=== PATIENT | male | born 1970 | race Caucasian/White ===

== ENCOUNTER 2019-03-08 19:23 | Inpatient (IN) | payer OTHER, MEDICAID, SELFPAY ==
[2019-03-08 19:25] VITALS: BP 172/71; PULSE 124; RESP 28; TEMP 36.4; O2SAT 99
[2019-03-08 19:30] VITALS: BP 172/71; PULSE 124; RESP 28; TEMP 36.4; O2SAT 99
[2019-03-08] MEDS: SODIUM CHLORIDE 0.9% 1,000 ML 1000 ML IV ×2 (19:50→20:58)
--- NOTE | 2019-03-08 19:51 | ED.GENADULT ---
HPI - General Adult General Chief complaint: Diabetic Problem Stated complaint: STATES VOMITING, HIGH BLOOD SUGAR Time Seen by Provider: 03/08/19 19:48 Source: patient Mode of arrival: Wheelchair Limitations: no limitations History of Present Illness HPI narrative: 49-year-old male who arrived by private vehicle for evaluation. Patient states that earlier this week he had generally not felt very well. No specific complaints. He states that yesterday morning he ?got sick ?upon further explanation he stated that he started vomiting and started to feel generally worse than when he had the past couple days. He states that he was taking his blood sugar at home and it was elevated. He was taking his insulin but he states that his blood sugar was not reducing. This was also in the setting of him not eating very much because he was not feeling very well. Over the past day or so he has worsen to the point to where today states that he had generalized pain and needed to come to the emergency department. Patient stated that his primary doctor's located in [place] Related Data Home Medications Medication Instructions Recorded Confirmed insulin aspart U-100 [Novolog See Rx Instructions .ROUTE .COMPLEX 03/09/19 03/09/19 U-100 Insulin aspart] Allergies Allergy/AdvReac Type Severity Reaction Status Date / Time No Known Drug Allergies Allergy Verified 03/08/19 19:49 Review of Systems Constitutional Constitutional: Reports chills, Reports fatigue, Denies fever(s), Reports lethargy, Reports malaise and Reports poor appetite Cardiovascular Cardiovascular: Reports chest pain and Reports dyspnea Respiratory Respiratory: Reports dyspnea Gastrointestinal Gastrointestinal: Reports abdominal pain, Denies change in stool character, Reports nausea and Reports vomiting Genitourinary Genitourinary: Denies dysuria Musculoskeletal Musculoskeletal: Denies myalgias and Denies arthralgias Integumentary/Breasts Skin/Breast: Denies lesions and Denies rash Neurologic Neurologic: Denies behavioral changes and Denies confusion Psychiatric Psychiatric: Denies anxiety, Denies behavioral changes and Denies confusion Endocrine Endocrine: Reports fatigue Hematologic/Lymphatic Hematologic/Lymphatic: Denies easy bleeding and Denies easy bruising Allergic/Immunologic Allergic/Immunologic: Denies urticaria Patient History Medical History Alcoholic cirrhosis of liver (Acute) Hemochromatosis (Acute) IDDM (insulin dependent diabetes mellitus) (Acute) Surgical History (Updated 03/09/19 @ 02:28 by MONSTER Giron) History of appendectomy (Acute) History of cholecystectomy (Acute) Social History household members: children Smoking Status: Current every day smoker Smoking Status: Current every day smoker tobacco type: cigarettes alcohol intake frequency: 0-2 drinks per day Substance Use Type: does not use Exam Initial Vital Signs Initial Vital Signs: Vital Signs Temperature 97.6 F 03/08/19 19:25 Pulse Rate 124 H 03/08/19 19:25 Respiratory Rate 28 H 03/08/19 19:25 Blood Pressure 172/71 H 03/08/19 19:25 Pulse Oximetry 99 03/08/19 19:25 Const General: well developed, well groomed, No in distress, No diaphoretic and ill appearing Orientation: alert, awake and oriented x3 Limitations: mental status not altered HENMT Head: normal to inspection and normocephalic Chest Chest: normal inspection of the chest Resp Effort & Inspection: not labored and tachypneic Auscultation: clear to auscultation bilaterally Cardio Rate: tachycardic Rhythm: regular rhythm Pulses: radial pulses present GI Inspection: non-distended Palpation: soft, No firm and tender (Diffusely tender) Back/Spine/Pelvis Back: No CVA tenderness Skin Lesions: no lesions Rashes: no rashes Neuro General: alert, awake and oriented x3 Cognition: normal cognition Speech: speech normal Sensory Exam: no sensory deficits noted Extrem General: normal to inspection, capillary refill normal and No edema Psych Appearance: grossly normal and well kempt Scores GCS [place] coma scale eye opening: Spontaneous [place] coma scale verbal response: Orientated [place] coma scale motor response: Obey commands [place] coma scale total score: 15 Course Orders Ordered: ED Orders 03/08/19 19:43 Arterial Blood Gas Stat Complete Blood Count AUTO DIFF Stat Comprehensive Metabolic Panel Stat Ethanol (ETOH) Stat Ketones (Beta-Hydroxybutyrate) Stat Lactate (Lactic Acid) Stat Magnesium Stat Phosphorous Stat Procalcitonin Stat Troponin & CK Cardiac Panel Stat 03/08/19 19:49 EKG-12 Lead Stat 03/08/19 19:53 XR chest 1V Stat 03/08/19 20:06 EKG-12 Lead Stat 03/08/19 20:15 Blood Culture Stat 03/08/19 20:30 UA Complete [Urinalysis and Microscopic] Stat Urine Drug Screen, Rapid Stat 03/08/19 21:15 BMP [Basic Metabolic Panel] Stat 03/08/19 21:25 Influenza A & B (PCR) Stat Dextrose (D50w) 25 gm IV PRN PRN PRN Reason: Hypoglycemia Enoxaparin Sodium (Lovenox) 40 mg SUBCUT DAILY MINOO INSULIN DRIP PREMIX (Myxredlin Drip Premix) 100 unit in 100 mls @ 6.5 mls/hr IV TITRATE MINOO; Protocol Last Titration: 03/09/19 00:34 Dose: 9.6 mls/hr Documented by: Admin: 03/08/19 20:46 Dose: 6.5 mls/hr Documented by: JEREMY Dextrose/Sodium Chloride (Dextrose 5%-0.45% Ns) 1,000 mls @ 150 mls/hr IV CONT MINOO Sodium Chloride (Normal Saline 0.45%) 1,000 mls @ 150 mls/hr IV CONT MINOO Last Admin: 03/09/19 00:37 Dose: Not Given Documented by: ALYSSIA Sodium Chloride (Normal Saline 0.9%) 1,000 mls @ 500 mls/hr IV BOLUS ONE Stop: 03/09/19 03:54 Last Admin: 03/09/19 02:00 Dose: 500 mls/hr Documented by: ALYSSIA Metoclopramide HCl (Reglan) 10 mg IV Q6HR PRN PRN Reason: Nausea And Vomiting Naloxone HCl (Narcan) 0.2 mg IV Q2MIN PRN PRN Reason: Opiate Reversal Ondansetron HCl (Zofran) 4 mg IV Q4HR PRN PRN Reason: Nausea And Vomiting Discontinued Medications Albuterol (Ventolin) 5 mg INH NOW ONE Stop: 03/08/19 21:50 Last Admin: 03/08/19 21:55 Dose: 5 mg Documented by: JEREMY Sodium Chloride (Normal Saline 0.9%) 1,000 mls @ 1,000 mls/hr IV BOLUS ONE Stop: 03/08/19 20:48 Last Infusion: 03/08/19 20:57 Dose: 0 mls/hr Documented by: Admin: 03/08/19 19:50 Dose: 1,000 mls/hr Documented by: JOYCELYN Sodium Chloride (Normal Saline 0.9%) 1,000 mls @ 1,000 mls/hr IV BOLUS ONE Stop: 03/08/19 21:51 Last Infusion: 03/08/19 21:30 Dose: 1,000 mls/hr Documented by: Admin: 03/08/19 20:58 Dose: 1,000 mls/hr Documented by: JEREMY Sodium Chloride (Normal Saline 0.9%) 1,000 mls @ 250 mls/hr IV CONT MINOO Last Infusion: 03/09/19 02:00 Dose: 0 mls/hr Documented by: Infusion: 03/09/19 00:38 Dose: 250 mls/hr Documented by: Infusion: 03/09/19 00:15 Dose: 0 mls/hr Documented by: Admin: 03/08/19 23:00 Dose: 250 mls/hr Documented by: VIPUL Insulin Human Regular (Humulin R) 6 unit IV NOW ONE Stop: 03/08/19 20:29 Last Admin: 03/08/19 20:43 Dose: 6 unit Documented by: JEREMY Cosigned by: JOYCELYN Ondansetron HCl (Zofran) 4 mg IV NOW ONE Stop: 03/08/19 19:52 Last Admin: 03/08/19 19:55 Dose: 4 mg Documented by: JOYCELYN Sodium Bicarbonate (Sodium Bicarbonate 8.4% Syringe) 50 meq IV NOW ONE Stop: 03/08/19 22:29 Last Admin: 03/09/19 00:13 Dose: 50 meq Documented by: VIPUL Vital Signs Vital signs: Vital Signs - 8 hr 03/08/19 20:01 03/08/19 21:10 Pulse Rate 124 H 122 H Respiratory Rate 24 28 H Blood Pressure [Left Arm] 151/82 H 139/51 L Pulse Oximetry 100 100 Medical Decision Making Medical Records Medical records reviewed: Yes I reviewed the patient's medical records. Lab Data Lab results reviewed: Yes I reviewed the patient's lab results. Result diagrams: 03/08/19 19:43 03/09/19 00:05 Labs: Lab Results 03/08/19 03/08/19 03/08/19 Range/Units 19:43 19:43 19:43 WBC 25.3 H (4.5-11.0) X10^3/uL RBC 4.80 (4.5-5.9) X10^6/uL Hgb 16.6 (13.5-17.5) g/dL Hct 50.8 (41-53) % MCV 105.8 H (80-100) fL MCH 34.5 H (26-34) PG MCHC 32.7 (30-36) % RDW 14.5 (11.6-14.8) % Plt Count 187 (150-400) X10^3/uL Neut % (Auto) 90.6 H (50-75) % Lymph % (Auto) 3.7 L (25-40) % [place] % (Auto) 5.1 (3-14) % Eos % (Auto) 0.0 L (2-4) % Baso % (Auto) 0.6 (0-2) % Neut # (Auto) 49916 H (1027-0438) /uL Lymph # (Auto) 1000 L (3799-4276) /uL [place] # (Auto) 1300 H (0-900) /uL Eos # (Auto) 0 (0-450) /uL Baso # (Auto) 100 (0-100) /uL ABG pH (7.35-7.45) ABG pCO2 (35-45) mmHg ABG pO2 (80-100) mmHg ABG HCO3 (22-26) mmol/L ABG Total CO2 (21-31) mmol/L ABG O2 Saturation (95-100) % ABG Base Excess (-2-2) mmol/L FiO2 Sodium 134 L (137-145) mmol/L Potassium 6.2 H (3.4-5.1) mmol/L Chloride 93 L (98-107) mmol/L Carbon Dioxide < 5 L* (22-32) mmol/L BUN 32 H (9-20) mg/dL Creatinine 1.70 H (0.66-1.25) mg/dL Estimated GFR 43.2 L (>60) mL/min BUN/Creatinine Ratio 18.8 (6-22) Glucose 692 H* (70-100) mg/dL Hemoglobin A1c (4.0-6.0) % Lactate (0.7-2.1) mmol/L Calcium 10.2 (8.4-10.2) mg/dL Phosphorus 8.6 H (2.5-4.5) mg/dL Magnesium 2.3 (1.6-2.3) mg/dL Total Bilirubin 2.3 H (0.2-1.3) mg/dL AST 41 (17-59) IU/L ALT 39 (<50) IU/L Alkaline Phosphatase 234 H (38-126) U/L Total Creatine Kinase (55-170) U/L CK-MB (CK-2) CK-MB (CK-2) Rel Index Troponin I (0.01-0.034) ng/mL Total Protein 8.2 (6.3-8.2) g/dL Albumin 5.5 H (3.5-5.0) g/dL Globulin 2.7 (1.7-4.1) g/dL Albumin/Globulin Ratio 2.0 (1.0-2.8) Procalcitonin 0.27 (<0.5) ng/mL Urine Color Urine Appearance Urine pH (4.5-8.0) Ur Specific [place] (1.000-1.035) Urine Protein (Negative) Urine Glucose (UA) (Negative) g/dL Urine Ketones (NEGATIVE) Urine Occult Blood (Negative) Urine Nitrate (Negative) Urine Bilirubin (NEGATIVE) Urine Urobilinogen (0.2) E.U./dL Ur Leukocyte Esterase (NEGATIVE) Urine RBC (0-5/HPF) Urine WBC (0-5/HPF) Urine Bacteria (None) Ur Culture Indicated? Micro UA Comment U Morph 300 ng/mL cutoff (Negative) Ur Oxycodone Screen (Negative) Urine Methadone Screen (Negative) Ur Barbiturates Screen (Negative) U Tricyclic Antidepress (Negative) Ur Phencyclidine Scrn (Negative) Ur Amphetamines Screen (Negative) U Methamphetamines Scrn (Negative) Ur MDMA Scrn (Ecstasy) (Negative) U Benzodiazepines Scrn (Negative) Urine Cocaine Screen (Negative) U Marijuana (THC) Screen (Negative) Ethyl Alcohol < 10 ( - 10) mg/dL Ketones 13.26 H (<0.27) mmol/L Influenza A (RT-PCR) (NEGATIVE) Influenza B (RT-PCR) (NEGATIVE) 03/08/19 03/08/19 03/08/19 Range/Units 19:43 19:43 19:43 WBC (4.5-11.0) X10^3/uL RBC (4.5-5.9) X10^6/uL Hgb (13.5-17.5) g/dL Hct (41-53) % MCV (80-100) fL MCH (26-34) PG MCHC (30-36) % RDW (11.6-14.8) % Plt Count (150-400) X10^3/uL Neut % (Auto) (50-75) % Lymph % (Auto) (25-40) % [place] % (Auto) (3-14) % Eos % (Auto) (2-4) % Baso % (Auto) (0-2) % Neut # (Auto) (0017-1236) /uL Lymph # (Auto) (8659-7060) /uL [place] # (Auto) (0-900) /uL Eos # (Auto) (0-450) /uL Baso # (Auto) (0-100) /uL ABG pH (7.35-7.45) ABG pCO2 (35-45) mmHg ABG pO2 (80-100) mmHg ABG HCO3 (22-26) mmol/L ABG Total CO2 (21-31) mmol/L ABG O2 Saturation (95-100) % ABG Base Excess (-2-2) mmol/L FiO2 Sodium (137-145) mmol/L Potassium (3.4-5.1) mmol/L Chloride (98-107) mmol/L Carbon Dioxide (22-32) mmol/L BUN (9-20) mg/dL Creatinine (0.66-1.25) mg/dL Estimated GFR (>60) mL/min BUN/Creatinine Ratio (6-22) Glucose (70-100) mg/dL Hemoglobin A1c (4.0-6.0) % Lactate 5.8 H* (0.7-2.1) mmol/L Calcium (8.4-10.2) mg/dL Phosphorus Cancelled (2.5-4.5) mg/dL Magnesium Cancelled (1.6-2.3) mg/dL Total Bilirubin (0.2-1.3) mg/dL AST (17-59) IU/L ALT (<50) IU/L Alkaline Phosphatase (38-126) U/L Total Creatine Kinase 38 L (55-170) U/L CK-MB (CK-2) TNP CK-MB (CK-2) Rel Index TNP Troponin I < 0.012 (0.01-0.034) ng/mL Total Protein (6.3-8.2) g/dL Albumin (3.5-5.0) g/dL Globulin (1.7-4.1) g/dL Albumin/Globulin Ratio (1.0-2.8) Procalcitonin (<0.5) ng/mL Urine Color Urine Appearance Urine pH (4.5-8.0) Ur Specific [place] (1.000-1.035) Urine Protein (Negative) Urine Glucose (UA) (Negative) g/dL Urine Ketones (NEGATIVE) Urine Occult Blood (Negative) Urine Nitrate (Negative) Urine Bilirubin (NEGATIVE) Urine Urobilinogen (0.2) E.U./dL Ur Leukocyte Esterase (NEGATIVE) Urine RBC (0-5/HPF) Urine WBC (0-5/HPF) Urine Bacteria (None) Ur Culture Indicated? Micro UA Comment U Morph 300 ng/mL cutoff (Negative) Ur Oxycodone Screen (Negative) Urine Methadone Screen (Negative) Ur Barbiturates Screen (Negative) U Tricyclic Antidepress (Negative) Ur Phencyclidine Scrn (Negative) Ur Amphetamines Screen (Negative) U Methamphetamines Scrn (Negative) Ur MDMA Scrn (Ecstasy) (Negative) U Benzodiazepines Scrn (Negative) Urine Cocaine Screen (Negative) U Marijuana (THC) Screen (Negative) Ethyl Alcohol ( - 10) mg/dL Ketones (<0.27) mmol/L Influenza A (RT-PCR) (NEGATIVE) Influenza B (RT-PCR) (NEGATIVE) 03/08/19 03/08/19 03/08/19 Range/Units 19:43 19:43 19:43 WBC (4.5-11.0) X10^3/uL RBC (4.5-5.9) X10^6/uL Hgb (13.5-17.5) g/dL Hct (41-53) % MCV (80-100) fL MCH (26-34) PG MCHC (30-36) % RDW (11.6-14.8) % Plt Count (150-400) X10^3/uL Neut % (Auto) (50-75) % Lymph % (Auto) (25-40) % [place] % (Auto) (3-14) % Eos % (Auto) (2-4) % Baso % (Auto) (0-2) % Neut # (Auto) (9774-7383) /uL Lymph # (Auto) (5058-8345) /uL [place] # (Auto) (0-900) /uL Eos # (Auto) (0-450) /uL Baso # (Auto) (0-100) /uL ABG pH 7.09 L* (7.35-7.45) ABG pCO2 13.7 L* (35-45) mmHg ABG pO2 128 H (80-100) mmHg ABG HCO3 4 L (22-26) mmol/L ABG Total CO2 5 L (21-31) mmol/L ABG O2 Saturation 97 (95-100) % ABG Base Excess -26.0 L (-2-2) mmol/L FiO2 0.21 Sodium (137-145) mmol/L Potassium (3.4-5.1) mmol/L Chloride (98-107) mmol/L Carbon Dioxide (22-32) mmol/L BUN (9-20) mg/dL Creatinine (0.66-1.25) mg/dL Estimated GFR (>60) mL/min BUN/Creatinine Ratio (6-22) Glucose (70-100) mg/dL Hemoglobin A1c 10.4 H (4.0-6.0) % Lactate (0.7-2.1) mmol/L Calcium (8.4-10.2) mg/dL Phosphorus (2.5-4.5) mg/dL Magnesium (1.6-2.3) mg/dL Total Bilirubin (0.2-1.3) mg/dL AST (17-59) IU/L ALT (<50) IU/L Alkaline Phosphatase (38-126) U/L Total Creatine Kinase (55-170) U/L CK-MB (CK-2) CK-MB (CK-2) Rel Index Troponin I (0.01-0.034) ng/mL Total Protein (6.3-8.2) g/dL Albumin (3.5-5.0) g/dL Globulin (1.7-4.1) g/dL Albumin/Globulin Ratio (1.0-2.8) Procalcitonin (<0.5) ng/mL Urine Color Urine Appearance Urine pH (4.5-8.0) Ur Specific [place] (1.000-1.035) Urine Protein (Negative) Urine Glucose (UA) (Negative) g/dL Urine Ketones (NEGATIVE) Urine Occult Blood (Negative) Urine Nitrate (Negative) Urine Bilirubin (NEGATIVE) Urine Urobilinogen (0.2) E.U./dL Ur Leukocyte Esterase (NEGATIVE) Urine RBC (0-5/HPF) Urine WBC (0-5/HPF) Urine Bacteria (None) Ur Culture Indicated? Micro UA Comment U Morph 300 ng/mL cutoff (Negative) Ur Oxycodone Screen (Negative) Urine Methadone Screen (Negative) Ur Barbiturates Screen (Negative) U Tricyclic Antidepress (Negative) Ur Phencyclidine Scrn (Negative) Ur Amphetamines Screen (Negative) U Methamphetamines Scrn (Negative) Ur MDMA Scrn (Ecstasy) (Negative) U Benzodiazepines Scrn (Negative) Urine Cocaine Screen (Negative) U Marijuana (THC) Screen (Negative) Ethyl Alcohol Cancelled ( - 10) mg/dL Ketones (<0.27) mmol/L Influenza A (RT-PCR) (NEGATIVE) Influenza B (RT-PCR) (NEGATIVE) 03/08/19 03/08/19 03/08/19 Range/Units 20:30 20:30 21:15 WBC (4.5-11.0) X10^3/uL RBC (4.5-5.9) X10^6/uL Hgb (13.5-17.5) g/dL Hct (41-53) % MCV (80-100) fL MCH (26-34) PG MCHC (30-36) % RDW (11.6-14.8) % Plt Count (150-400) X10^3/uL Neut % (Auto) (50-75) % Lymph % (Auto) (25-40) % [place] % (Auto) (3-14) % Eos % (Auto) (2-4) % Baso % (Auto) (0-2) % Neut # (Auto) (0893-8421) /uL Lymph # (Auto) (8160-8127) /uL [place] # (Auto) (0-900) /uL Eos # (Auto) (0-450) /uL Baso # (Auto) (0-100) /uL ABG pH (7.35-7.45) ABG pCO2 (35-45) mmHg ABG pO2 (80-100) mmHg ABG HCO3 (22-26) mmol/L ABG Total CO2 (21-31) mmol/L ABG O2 Saturation (95-100) % ABG Base Excess (-2-2) mmol/L FiO2 Sodium 133 L (137-145) mmol/L Potassium 7.3 H* (3.4-5.1) mmol/L Chloride 96 L (98-107) mmol/L Carbon Dioxide < 5 L* (22-32) mmol/L BUN 33 H (9-20) mg/dL Creatinine 1.50 H (0.66-1.25) mg/dL Estimated GFR 49.9 L (>60) mL/min BUN/Creatinine Ratio 22.0 (6-22) Glucose 699 H* (70-100) mg/dL Hemoglobin A1c (4.0-6.0) % Lactate (0.7-2.1) mmol/L Calcium 9.2 (8.4-10.2) mg/dL Phosphorus (2.5-4.5) mg/dL Magnesium (1.6-2.3) mg/dL Total Bilirubin (0.2-1.3) mg/dL AST (17-59) IU/L ALT (<50) IU/L Alkaline Phosphatase (38-126) U/L Total Creatine Kinase (55-170) U/L CK-MB (CK-2) CK-MB (CK-2) Rel Index Troponin I (0.01-0.034) ng/mL Total Protein (6.3-8.2) g/dL Albumin (3.5-5.0) g/dL Globulin (1.7-4.1) g/dL Albumin/Globulin Ratio (1.0-2.8) Procalcitonin (<0.5) ng/mL Urine Color Yellow Urine Appearance Clear Urine pH 5.0 (4.5-8.0) Ur Specific [place] 1.020 (1.000-1.035) Urine Protein Trace H (Negative) Urine Glucose (UA) 3+ H (Negative) g/dL Urine Ketones 2+ H (NEGATIVE) Urine Occult Blood Trace-lysed (Negative) Urine Nitrate Negative (Negative) Urine Bilirubin Negative (NEGATIVE) Urine Urobilinogen 0.2 (0.2) E.U./dL Ur Leukocyte Esterase Negative (NEGATIVE) Urine RBC None seen (0-5/HPF) Urine WBC None seen (0-5/HPF) Urine Bacteria None seen (None) Ur Culture Indicated? Cult not indicated Micro UA Comment Microscopic normal U Morph 300 ng/mL cutoff Negative (Negative) Ur Oxycodone Screen Negative (Negative) Urine Methadone Screen Negative (Negative) Ur Barbiturates Screen Negative (Negative) U Tricyclic Antidepress Negative (Negative) Ur Phencyclidine Scrn Negative (Negative) Ur Amphetamines Screen Negative (Negative) U Methamphetamines Scrn Negative (Negative) Ur MDMA Scrn (Ecstasy) Negative (Negative) U Benzodiazepines Scrn Negative (Negative) Urine Cocaine Screen Negative (Negative) U Marijuana (THC) Screen Negative (Negative) Ethyl Alcohol ( - 10) mg/dL Ketones (<0.27) mmol/L Influenza A (RT-PCR) (NEGATIVE) Influenza B (RT-PCR) (NEGATIVE) 03/08/19 03/08/19 03/08/19 Range/Units 21:15 21:15 21:25 WBC (4.5-11.0) X10^3/uL RBC (4.5-5.9) X10^6/uL Hgb (13.5-17.5) g/dL Hct (41-53) % MCV (80-100) fL MCH (26-34) PG MCHC (30-36) % RDW (11.6-14.8) % Plt Count (150-400) X10^3/uL Neut % (Auto) (50-75) % Lymph % (Auto) (25-40) % [place] % (Auto) (3-14) % Eos % (Auto) (2-4) % Baso % (Auto) (0-2) % Neut # (Auto) (7569-5270) /uL Lymph # (Auto) (8358-3809) /uL [place] # (Auto) (0-900) /uL Eos # (Auto) (0-450) /uL Baso # (Auto) (0-100) /uL ABG pH (7.35-7.45) ABG pCO2 (35-45) mmHg ABG pO2 (80-100) mmHg ABG HCO3 (22-26) mmol/L ABG Total CO2 (21-31) mmol/L ABG O2 Saturation (95-100) % ABG Base Excess (-2-2) mmol/L FiO2 Sodium (137-145) mmol/L Potassium (3.4-5.1) mmol/L Chloride (98-107) mmol/L Carbon Dioxide (22-32) mmol/L BUN (9-20) mg/dL Creatinine (0.66-1.25) mg/dL Estimated GFR (>60) mL/min BUN/Creatinine Ratio (6-22) Glucose (70-100) mg/dL Hemoglobin A1c (4.0-6.0) % Lactate 4.7 H* (0.7-2.1) mmol/L Calcium (8.4-10.2) mg/dL Phosphorus 7.5 H D (2.5-4.5) mg/dL Magnesium 2.2 (1.6-2.3) mg/dL Total Bilirubin (0.2-1.3) mg/dL AST (17-59) IU/L ALT (<50) IU/L Alkaline Phosphatase (38-126) U/L Total Creatine Kinase (55-170) U/L CK-MB (CK-2) CK-MB (CK-2) Rel Index Troponin I (0.01-0.034) ng/mL Total Protein (6.3-8.2) g/dL Albumin (3.5-5.0) g/dL Globulin (1.7-4.1) g/dL Albumin/Globulin Ratio (1.0-2.8) Procalcitonin (<0.5) ng/mL Urine Color Urine Appearance Urine pH (4.5-8.0) Ur Specific [place] (1.000-1.035) Urine Protein (Negative) Urine Glucose (UA) (Negative) g/dL Urine Ketones (NEGATIVE) Urine Occult Blood (Negative) Urine Nitrate (Negative) Urine Bilirubin (NEGATIVE) Urine Urobilinogen (0.2) E.U./dL Ur Leukocyte Esterase (NEGATIVE) Urine RBC (0-5/HPF) Urine WBC (0-5/HPF) Urine Bacteria (None) Ur Culture Indicated? Micro UA Comment U Morph 300 ng/mL cutoff (Negative) Ur Oxycodone Screen (Negative) Urine Methadone Screen (Negative) Ur Barbiturates Screen (Negative) U Tricyclic Antidepress (Negative) Ur Phencyclidine Scrn (Negative) Ur Amphetamines Screen (Negative) U Methamphetamines Scrn (Negative) Ur MDMA Scrn (Ecstasy) (Negative) U Benzodiazepines Scrn (Negative) Urine Cocaine Screen (Negative) U Marijuana (THC) Screen (Negative) Ethyl Alcohol ( - 10) mg/dL Ketones (<0.27) mmol/L Influenza A (RT-PCR) Flu a negative (NEGATIVE) Influenza B (RT-PCR) Flu b negative (NEGATIVE) Point of Care Testing Glucose POC 500 Point of care testing: Point of Care Testing Glucose POC 500 Imaging Data Chest x-ray: Radiologist's impression: [address] [address] XRay Report Signed Patient: Tutu Martin CMR#: [id number] : 1970Acct:[id number] Age/Sex: 49 / MDate of Service: 03/08/19 Loc: ED Accession Number: [id number] Procedure: XR chest 1V Ordering Provider: Philip Jacobs D.O. PROCEDURE: XR CHEST 1V INDICATIONS: SOB TECHNIQUE: One view of the chest was acquired. COMPARISON: None. FINDINGS: Surgical changes and devices: None. Lungs and pleura: Lungs are clear. No pleural effusions or pneumothorax. Mediastinum: Mediastinal contours appear normal. Heart size is normal. Bones and chest wall: No suspicious bony lesions. Overlying soft tissues appear unremarkable. IMPRESSION: No acute cardiopulmonary disease. Dictated by: Steve Mullen M.D. on 03/08/2019 at 20:44 Approved by: Steve Mullen M.D. on 03/08/2019 at 20:44 ECG Data Attestation: I personally reviewed and interpreted this ECG as follows: Prior ECG tracings: not available for review Interpretation: EKG 1. Sinus tachycardia ST elevation in V1 and V2 Peak T-waves Normal axis Ventricular rate [address] depressions or T-wave inversions EKG 2. Sinus tachycardia Ventricular rate 125 ST elevation in V1 V2 Peak T-waves No ST depressions or T-wave inversions EKG 3. Sinus tachycardia Ventricular rate of 120 ST elevations V1 V2 Normal axis Normal QRS Nonspecific ST T wave changes MDM Narrative Medical decision making narrative: Patient is an insulin-dependent diabetic. He states that he has never been in DKA in the past. He arrived ill-appearing. Was tachypneic and tachycardic. Labs consistent with DKA. Patient's initial EKG did have ST elevations in V1 and V2 but no other reciprocal changes. I did discuss the case with Dr. Santiago who is on-call for Cardiology. The EKGs were faxed to him and he evaluated them. Further discussion on the phone he did state that he agree there were ST elevations in V1 and V2 but again there are no other reciprocal changes. We did discuss the patient's clinical presentation to include acidosis and a negative troponin. He stated that given the patient's clinical presentation in this EKG he would recommend treating the patient's DKA and his electrolyte abnormalities and continue to trend the troponins. He stated that despite these elevations he would not take the patient to the pathology laboratory aides teacher given his other medical issues. Patient's initial potassium was slightly elevated. He was given an insulin bolus and then started on an insulin drip. Fluids were administered. Does have a leukocytosis however no specific signs of infection were found on the exam. Repeat BMP shows that the potassium was slightly higher than before despite the insulin. That is when the 3rd EKG was ordered. The peak T-waves were not particularly worse from the 1st to EKG however his potassium was increasing and he did have peaked T-waves on his EKG. Albuterol was administered. Insulin was continued. I did discuss the case with JOHNNY Lackey the [facility] provider who evaluated the patient the emergency department. ABG showed metabolic acidosis with a pH is 7.0. Repeat ABG was ordered when the 2nd BMP return with worsening lecture light issues in this was essentially unchanged from the 1st ABG. This information is passed on to the hospitalist provider. I did discuss the diagnosis with the patient and family at bedside. Will admit for further evaluation and treatment. Critical Care Time Critical Care Time Critical Care Time: Yes Total Critical Care Time: 45 Attestation: The high probability of a clinically significant, sudden or life threatening deterioration of the endocrine, respiratory, cardiovascular system(s) required my full and direct attention, intervention and personal management. The aggregate critical care time was 45 minutes. This time is in addition to time spent performing reported procedures but includes the following: [] Data Review and interpretation [] Patient assessment and monitoring of vital signs [] Documentation [] Medication orders and management Discharge Plan Departure Patient Disposition: Admitted As Inpatient Clinical Impression: DKA (diabetic ketoacidoses), Hyperkalemia Discharge Date/Time: 03/09/19 00:24 Admit Date/Time: 03/08/19 21:25 Admit Provider: Brijesh Lackey
[2019-03-08] MEDS: ONDANSETRON 4 MG/2 ML INJ IV (19:55)
[2019-03-08 19:58] LABS: Add Manual Diff / Slide Review NO; Basophils Absolute Auto 100 /uL (0-100); Basophils Percent Auto 0.6 % (0-2); Eosinophils Absolute Auto 0 /uL (0-450); Hematocrit 50.8 % (41-53); Hemoglobin 16.6 g/dL (13.5-17.5); Lymphocytes Absolute Auto 1000 /uL (1100-4500); Lymphocytes Percent Auto 3.7 % (25-40); Mean Corpuscular HGB Conc 32.7 % (30-36); Mean Corpuscular Hemoglobin 34.5 PG (26-34); Mean Corpuscular Volume 105.8 fL (80-100); Monocytes Absolute Auto 1300 /uL (0-900); Monocytes Percent Auto 5.1 % (3-14); Neutrophils Absolute Auto 22900 /uL (1500-7000); Neutrophils Percent Auto 90.6 % (50-75); Platelet Count 187 X10^3/uL (150-400); Red Cell Distribution Width 14.5 % (11.6-14.8); White Blood Cell Count 25.3 X10^3/uL (4.5-11.0)
[2019-03-08 20:00] LABS: HCO3 ABG 4 mmol/L (22-26); PCO2 ABG 13.7 mmHg (35-45); PO2 ABG 128 mmHg (80-100); pH ABG 7.09 (7.35-7.45)
[2019-03-08 20:01] VITALS: BP 151/82; PULSE 124; RESP 24; O2SAT 100
[2019-03-08 20:01] LABS: Fractionated Inspired Oxygen 0.21; Oxygen Saturation ABG 97 % (95-100)
[2019-03-08 20:04] LABS: Creatine Kinase 38 U/L (55-170); HEMOLYSIS 45 (0-50)
[2019-03-08 20:06] LABS: Lactate (Lactic Acid) 5.8 mmol/L (0.7-2.1)
[2019-03-08 20:10] LABS: Alanine Aminotransferase 39 IU/L (<50); Albumin 5.5 g/dL (3.5-5.0); Alkaline Phosphatase 234 U/L (38-126); Aspartate Aminotransferase 41 IU/L (17-59); BUN Creatinine Ratio 18.8 (6-22); Bilirubin Total 2.3 mg/dL (0.2-1.3); Blood Urea Nitrogen 32 mg/dL (9-20); Calcium 10.2 mg/dL (8.4-10.2); Chloride 93 mmol/L (98-107); Estimated Glomerular Filt Rate 43.2 mL/min (>60); Ethanol (ETOH) < 10 mg/dL; Globulin 2.7 g/dL (1.7-4.1); Magnesium 2.3 mg/dL (1.6-2.3); Phosphorous 8.6 mg/dL (2.5-4.5); Sodium 134 mmol/L (137-145); Total Protein 8.2 g/dL (6.3-8.2)
[2019-03-08 20:11] LABS: Potassium 6.2 mmol/L (3.4-5.1)
[2019-03-08 20:13] LABS: Carbon Dioxide < 5 mmol/L (22-32)
[2019-03-08 20:17] LABS: Troponin I < 0.012 ng/mL (0.01-0.034)
[2019-03-08 20:21] LABS: Procalcitonin 0.27 ng/mL (<0.5)
--- NOTE | 2019-03-08 20:29 | PC.NURSE ---
reports vomiting at his dads house two days ago and not feeling well. has needed to increase his insulin rates in his insulin pump for last two days with little response to glucose. Now states his meter only says High. two lines placed, fluids infusing, denies needs at this time.
[2019-03-08 20:38] LABS: Bacteria Urine None Seen; RBC Urine None Seen (0-5/HPF); WBC Urine None Seen (0-5/HPF)
[2019-03-08 20:38] LABS: Glucose 692 mg/dL (70-100); Ketones (Beta-Hydroxybutyrate) 13.26 mmol/L (<0.27)
[2019-03-08 20:40] LABS: Appearance Urine UA CLEAR; Bilirubin Urine UA NEGATIVE (NEGATIVE); Color Urine UA YELLOW; Glucose Urine UA 3+ g/dL (Negative); Ketones Urine UA 2+ (NEGATIVE); Leukocyte Esterase Urine UA NEGATIVE (NEGATIVE); Nitrite Urine UA NEGATIVE (Negative); Occult Blood Urine UA TRACE-LYSED (Negative); Protein Urine UA TRACE (Negative); Urobilinogen Urine UA 0.2 E.U./dL (0.2)
[2019-03-08 20:43] LABS: Culture Indicated Urine Cult Not Indicated; Urine Comments Microscopic Normal
[2019-03-08] MEDS: INSULIN REGULAR 100 UNIT/ML 3 ML VIAL 6 UNIT IV (20:43)
[2019-03-08 20:44] LABS: Ur Creatinine Normal (Normal); Ur Specific Gravity Normal (Normal); Urine pH Normal (Normal)
[2019-03-08 20:45] LABS: UR Morphine/Opiate cutoff 300 Negative (Negative); Urine Amphetamines Negative (Negative); Urine Barbiturates Negative (Negative); Urine Benzodiazepines Negative (Negative); Urine Cocaine Negative (Negative); Urine MDMA Negative (Negative); Urine Methadone Negative (Negative); Urine Methamphetamines Negative (Negative); Urine Oxycodone Negative (Negative); Urine Phencyclidine Negative (Negative); Urine Tetrahydrocannabinol Negative (Negative); Urine Tricyclic Antidepressant Negative (Negative)
[2019-03-08] MEDS: INSULIN DRIP PREMIX 100 UNIT/100 ML PLAST..BAG 6.5 UNIT IV (20:46)
--- NOTE | 2019-03-08 20:56 | PC.NURSE ---
patient stopped insulin pump and removed from body prior to starting insulin drip.
[2019-03-08 21:10] VITALS: BP 139/51; PULSE 122; RESP 28; O2SAT 100
--- NOTE | 2019-03-08 21:29 | PC.NURSE ---
repeat BNP drawn by lab at 2114
[2019-03-08 21:34] LABS: Blood Urea Nitrogen 33 mg/dL (9-20); Calcium 9.2 mg/dL (8.4-10.2); Chloride 96 mmol/L (98-107); Estimated Glomerular Filt Rate 49.9 mL/min (>60); HEMOLYSIS < 15 (0-50); Sodium 133 mmol/L (137-145)
[2019-03-08 21:40] VITALS: BP 139/101; PULSE 119; RESP 32; O2SAT 100
[2019-03-08 21:48] LABS: Potassium 7.3 mmol/L (3.4-5.1)
[2019-03-08 21:49] LABS: Carbon Dioxide < 5 mmol/L (22-32); Glucose 699 mg/dL (70-100)
[2019-03-08 21:53] LABS: Magnesium 2.2 mg/dL (1.6-2.3); Phosphorous 7.5 mg/dL (2.5-4.5)
[2019-03-08] MEDS: ALBUTEROL 2.5 MG/3 ML NEB (ADULT) 5 MG INH (21:55)
[2019-03-08 22:04] LABS: Influenza A - CEPHEID Flu A NEGATIVE (NEGATIVE); Influenza B - CEPHEID Flu B NEGATIVE (NEGATIVE)
[2019-03-08 22:07] LABS: Reflexed Lactate in 2 Hours Y
[2019-03-08 22:20] LABS: Hemoglobin A1C% w Est Avg Glu 10.4 % (4.0-6.0)
[2019-03-08 22:22] LABS: Fractionated Inspired Oxygen 0.21; HCO3 ABG 4 mmol/L (22-26); Oxygen Saturation ABG 98 % (95-100); PO2 ABG 130 mmHg (80-100); pH ABG 7.08 (7.35-7.45)
[2019-03-08 22:44] VITALS: BP 159/67; PULSE 127; RESP 25; O2SAT 99
[2019-03-08] MEDS: SODIUM CHLORIDE 0.9% 1,000 ML 250 ML IV (23:00)
--- NOTE | 2019-03-08 23:14 | P.HP_ITS ---
History of Present Illness History of Present Illness Date Patient Seen: 03/08/19 Time Patient Seen: 22:33 Chief complaint: STATES VOMITING, HIGH BLOOD SUGAR Narrative: Mr. 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 Patient is a type 1.5 diabetic on insulin pump. The patient is not very forthcoming with medical information stating he feels delirious. He is followed for his diabetes by provider in [place]. The patient states his symptoms and nausea vomiting had become progressive and describes general malaise. Reports no headaches or dizziness and has no nasal congestion or sore throat. He denies shortness of breath or chest pain and has no palpitations. Describes general abdominal pain with aforementioned nausea without vomiting. Patient denies pre-existing gastroparesis or neuropathy. Reports no changes in bowel or bladder habits. Upon arrival the ER the patient is afebrile with temperature 97.6?, he is tachycardic with a heart rate 124, pressure is 172/71, respirations are 28 saturating 99% on room air. A chest x-ray was taken which shows no acute cardiopulmonary pathology. EKG is obtained which shows ST elevation in V1 V2 without ulcers hip recall changes. On laboratory analysis the patient has an elevated white count 25.3, hemoglobin of 16.6 and hematocrit of 50.8 and platelets of 187. On chemistries he has a low sodium at 1:34 a.m. elevated potassium at 6.2, chloride 93 with a CO2 of less than 5, BUN of 32 and cre atinine 1.7. His blood sugar is found to be 6 and 92. ABGs drawn shows pH of 7.09, pCO2 of 13.7, PO2 of 128, bicarb of 4 with a base excess of -26 on room air. He has an elevated lactate at 5.8 with a negative procalcitonin is 0.27. He has a troponin that is negative at less than 0.012 and a negative total CK. He has an elevated bilirubin at 2.3 with an AST of 41, ALT of 39 and alkaline phosphatase of 234. His ketones are measured at 13.26, his phosphorus at 7.5 and magnesium is 2.2. On urinalysis the he has 3+ glucose and is positive for ketones but no indication of infection. Cardiology is consulted related to the ST-elevation in V1 and V2 in the setting of hyperkalemia. The recommendations received to treat the hyperkalemia and DKA and trend the troponin. The patient is given 6 units of insulin IV and started on insulin infusion. He has received 2 L of normal saline in the ER. He is admitted to the ICU on the medicine service for diabetic ketoacidosis. Patient History Medical History (Updated 03/09/19 @ 02:28 by MONSTER Giron) Alcoholic cirrhosis of liver (Acute) Hemochromatosis (Acute) IDDM (insulin dependent diabetes mellitus) (Acute) Surgical History (Updated 03/09/19 @ 02:28 by MONSTER Giron) History of appendectomy (Acute) History of cholecystectomy (Acute) Family & Social History Safety & Behavioral: Feels Safe in Current Yes Environment Been Physically Hurt or No Threatened By a Person Tobacco & Substance use: Smoking Status Current every day smoker alcohol intake frequency 0-2 drinks per day Substance Use Type does not use Comment: The patient is single and lives alone in an apartment. He reports that his father and mother, brother and sister are all healthy with no known significant medical problems. Occupation: [employer] Smoking: Patient is a current smoker approximately 1/2 pack per day for 20 years. Alcohol: Patient denies alcohol consumption. Substance use: Patient denies recreational pharmaceuticals, herbal or cannabis products. Advanced directive: Patient has no formal advanced directive but states his desire to be FULL CODE. He designates his father Adair Martin SrWinnie to be his surrogate decision maker. Meds Home Medications and Allergies Home Medications Medication Instructions Recorded Confirmed Type insulin aspart U-100 [Novolog See Rx Instructions .ROUTE .COMPLEX 03/09/19 03/09/19 History U-100 Insulin aspart] Allergies Allergy/AdvReac Type Severity Reaction Status Date / Time No Known Drug Allergies Allergy Verified 03/08/19 19:49 Review of Systems Review of Systems Narrative: All systems are reviewed and are unremarkable except as noted in HPI. Exam Vital Signs (past 8 hours): - 03/08/19 19:25 03/08/19 19:30 03/08/19 20:01 Temperature 97.6 F 97.6 F Pulse Rate 124 H 124 H 124 H Respiratory Rate 28 H 28 H 24 Blood Pressure 172/71 H Blood Pressure [Left Arm] 172/71 H 151/82 H Pulse Oximetry 99 99 100 03/08/19 21:10 03/08/19 21:40 03/08/19 22:44 Temperature Pulse Rate 122 H 119 H 127 H Respiratory Rate 28 H 32 H 25 H Blood Pressure Blood Pressure [Left Arm] 139/51 L 139/101 H 159/67 H Pulse Oximetry 100 100 99 Oxygen Delivery Method Room Air Narrative Exam Narrative: GENERAL APPEARANCE: well developed, adequately nourished, slender male, moderately ill-appearings. HEENT: Normocephalic, PERRLA, conjunctiva clear, EOMs intact, no sinus tenderness to percussion, no rhinorrhea, mucous membranes and tongue are dry, pink without lesions or exudate. NECK/THYROID: neck supple, no JVD, no thyromegaly, trachea midline. LYMPH NODES: no cervical or supraclavicular lymphadenopathy. SKIN: [place], warm and dry, no visible lesions or rashes. HEART: Tachycardic rate and regular rhythm, S1-S2, no murmur,brisk capillary refill, no edema LUNGS: clear to auscultation bilaterally, no coarseness crackles or wheezing, no cough present CHEST: Symmetrical movement, no accessory muscle use, no pain to AP and lateral compression. ABDOMEN: Soft, scaphoid, generalized abdominal tenderness, palpation producing nausea, no abdominal pain on heel strike, no organomegaly, no flank or suprapubic tenderness, active bowel tones. EXTREMITIES: moves all extremities, strength is 5/5 and symmetrical, no deformities or joint effusions. NEUROLOGIC: AAO x4, no focal neurologic deficits, cranial nerves II-XII grossly intact, sensation intact to light touch, hearing grossly normal to speech. PSYCH: Patient is agitated, marginally cooperative Objective Labs Result Diagrams: 03/08/19 19:43 03/09/19 00:05 Labs: Laboratory Results - last 24 hr 03/08/19 03/08/19 12 19:43 19:43 19:43 WBC 25.3 H RBC 4.80 Hgb 16.6 Hct 50.8 MCV 105.8 H MCH 34.5 H MCHC 32.7 RDW 14.5 Plt Count 187 Neut % (Auto) 90.6 H Lymph % (Auto) 3.7 L Tillman % (Auto) 5.1 Eos % (Auto) 0.0 L Baso % (Auto) 0.6 Neut # (Auto) 20402 H Lymph # (Auto) 1000 L Tillman # (Auto) 1300 H Eos # (Auto) 0 Baso # (Auto) 100 ABG pH ABG pCO2 ABG pO2 ABG HCO3 ABG Total CO2 ABG O2 Saturation ABG Base Excess FiO2 Sodium 134 L Potassium 6.2 H Chloride 93 L Carbon Dioxide < 5 L* BUN 32 H Creatinine 1.70 H Estimated GFR 43.2 L BUN/Creatinine Ratio 18.8 Glucose 692 H* Hemoglobin A1c Lactate Calcium 10.2 Phosphorus 8.6 H Magnesium 2.3 Total Bilirubin 2.3 H AST 41 ALT 39 Alkaline Phosphatase 234 H Total Creatine Kinase CK-MB (CK-2) CK-MB (CK-2) Rel Index Troponin I Total Protein 8.2 Albumin 5.5 H Globulin 2.7 Albumin/Globulin Ratio 2.0 Procalcitonin 0.27 Urine Color Urine Appearance Urine pH Ur Specific [place] Urine Protein Urine Glucose (UA) Urine Ketones Urine Occult Blood Urine Nitrate Urine Bilirubin Urine Urobilinogen Ur Leukocyte Esterase Urine RBC Urine WBC Urine Bacteria Ur Culture Indicated? Micro UA Comment U Morph 300 ng/mL cutoff Ur Oxycodone Screen Urine Methadone Screen Ur Barbiturates Screen U Tricyclic Antidepress Ur Phencyclidine Scrn Ur Amphetamines Screen U Methamphetamines Scrn Ur MDMA Scrn (Ecstasy) U Benzodiazepines Scrn Urine Cocaine Screen U Marijuana (THC) Screen Ethyl Alcohol < 10 Ketones 13.26 H Influenza A (RT-PCR) Influenza B (RT-PCR) 03/08/19 03/08/19 03/08/19 19:43 19:43 19:43 WBC RBC Hgb Hct MCV MCH MCHC RDW Plt Count Neut % (Auto) Lymph % (Auto) [place] % (Auto) Eos % (Auto) Baso % (Auto) Neut # (Auto) Lymph # (Auto) [place] # (Auto) Eos # (Auto) Baso # (Auto) ABG pH ABG pCO2 ABG pO2 ABG HCO3 ABG Total CO2 ABG O2 Saturation ABG Base Excess FiO2 Sodium Potassium Chloride Carbon Dioxide BUN Creatinine Estimated GFR BUN/Creatinine Ratio Glucose Hemoglobin A1c Lactate 5.8 H* Calcium Phosphorus Cancelled Magnesium Cancelled Total Bilirubin AST ALT Alkaline Phosphatase Total Creatine Kinase 38 L CK-MB (CK-2) TNP CK-MB (CK-2) Rel Index TNP Troponin I < 0.012 Total Protein Albumin Globulin Albumin/Globulin Ratio Procalcitonin Urine Color Urine Appearance Urine pH Ur Specific [place] Urine Protein Urine Glucose (UA) Urine Ketones Urine Occult Blood Urine Nitrate Urine Bilirubin Urine Urobilinogen Ur Leukocyte Esterase Urine RBC Urine WBC Urine Bacteria Ur Culture Indicated? Micro UA Comment U Morph 300 ng/mL cutoff Ur Oxycodone Screen Urine Methadone Screen Ur Barbiturates Screen U Tricyclic Antidepress Ur Phencyclidine Scrn Ur Amphetamines Screen U Methamphetamines Scrn Ur MDMA Scrn (Ecstasy) U Benzodiazepines Scrn Urine Cocaine Screen U Marijuana (THC) Screen Ethyl Alcohol Ketones Influenza A (RT-PCR) Influenza B (RT-PCR) 03/08/19 03/08/19 03/08/19 19:43 19:43 19:43 WBC RBC Hgb Hct MCV MCH MCHC RDW Plt Count Neut % (Auto) Lymph % (Auto) [place] % (Auto) Eos % (Auto) Baso % (Auto) Neut # (Auto) Lymph # (Auto) [place] # (Auto) Eos # (Auto) Baso # (Auto) ABG pH 7.09 L* ABG pCO2 13.7 L* ABG pO2 128 H ABG HCO3 4 L ABG Total CO2 5 L ABG O2 Saturation 97 ABG Base Excess -26.0 L FiO2 0.21 Sodium Potassium Chloride Carbon Dioxide BUN Creatinine Estimated GFR BUN/Creatinine Ratio Glucose Hemoglobin A1c 10.4 H Lactate Calcium Phosphorus Magnesium Total Bilirubin AST ALT Alkaline Phosphatase Total Creatine Kinase CK-MB (CK-2) CK-MB (CK-2) Rel Index Troponin I Total Protein Albumin Globulin Albumin/Globulin Ratio Procalcitonin Urine Color Urine Appearance Urine pH Ur Specific [place] Urine Protein Urine Glucose (UA) Urine Ketones Urine Occult Blood Urine Nitrate Urine Bilirubin Urine Urobilinogen Ur Leukocyte Esterase Urine RBC Urine WBC Urine Bacteria Ur Culture Indicated? Micro UA Comment U Morph 300 ng/mL cutoff Ur Oxycodone Screen Urine Methadone Screen Ur Barbiturates Screen U Tricyclic Antidepress Ur Phencyclidine Scrn Ur Amphetamines Screen U Methamphetamines Scrn Ur MDMA Scrn (Ecstasy) U Benzodiazepines Scrn Urine Cocaine Screen U Marijuana (THC) Screen Ethyl Alcohol Cancelled Ketones Influenza A (RT-PCR) Influenza B (RT-PCR) 03/08/19 03/08/19 03/08/19 20:30 20:30 21:15 WBC RBC Hgb Hct MCV MCH MCHC RDW Plt Count Neut % (Auto) Lymph % (Auto) [place] % (Auto) Eos % (Auto) Baso % (Auto) Neut # (Auto) Lymph # (Auto) [place] # (Auto) Eos # (Auto) Baso # (Auto) ABG pH ABG pCO2 ABG pO2 ABG HCO3 ABG Total CO2 ABG O2 Saturation ABG Base Excess FiO2 Sodium 133 L Potassium 7.3 H* Chloride 96 L Carbon Dioxide < 5 L* BUN 33 H Creatinine 1.50 H Estimated GFR 49.9 L BUN/Creatinine Ratio 22.0 Glucose 699 H* Hemoglobin A1c Lactate Calcium 9.2 Phosphorus Magnesium Total Bilirubin AST ALT Alkaline Phosphatase Total Creatine Kinase CK-MB (CK-2) CK-MB (CK-2) Rel Index Troponin I Total Protein Albumin Globulin Albumin/Globulin Ratio Procalcitonin Urine Color Yellow Urine Appearance Clear Urine pH 5.0 Ur Specific [place] 1.020 Urine Protein Trace H Urine Glucose (UA) 3+ H Urine Ketones 2+ H Urine Occult Blood Trace-lysed Urine Nitrate Negative Urine Bilirubin Negative Urine Urobilinogen 0.2 Ur Leukocyte Esterase Negative Urine RBC None seen Urine WBC None seen Urine Bacteria None seen Ur Culture Indicated? Cult not indicated Micro UA Comment Microscopic normal U Morph 300 ng/mL cutoff Negative Ur Oxycodone Screen Negative Urine Methadone Screen Negative Ur Barbiturates Screen Negative U Tricyclic Antidepress Negative Ur Phencyclidine Scrn Negative Ur Amphetamines Screen Negative U Methamphetamines Scrn Negative Ur MDMA Scrn (Ecstasy) Negative U Benzodiazepines Scrn Negative Urine Cocaine Screen Negative U Marijuana (THC) Screen Negative Ethyl Alcohol Ketones Influenza A (RT-PCR) Influenza B (RT-PCR) 03/08/19 03/08/19 03/08/19 21:15 21:15 21:25 WBC RBC Hgb Hct MCV MCH MCHC RDW Plt Count Neut % (Auto) Lymph % (Auto) [place] % (Auto) Eos % (Auto) Baso % (Auto) Neut # (Auto) Lymph # (Auto) [place] # (Auto) Eos # (Auto) Baso # (Auto) ABG pH ABG pCO2 ABG pO2 ABG HCO3 ABG Total CO2 ABG O2 Saturation ABG Base Excess FiO2 Sodium Potassium Chloride Carbon Dioxide BUN Creatinine Estimated GFR BUN/Creatinine Ratio Glucose Hemoglobin A1c Lactate 4.7 H* Calcium Phosphorus 7.5 H D Magnesium 2.2 Total Bilirubin AST ALT Alkaline Phosphatase Total Creatine Kinase CK-MB (CK-2) CK-MB (CK-2) Rel Index Troponin I Total Protein Albumin Globulin Albumin/Globulin Ratio Procalcitonin Urine Color Urine Appearance Urine pH Ur Specific [place] Urine Protein Urine Glucose (UA) Urine Ketones Urine Occult Blood Urine Nitrate Urine Bilirubin Urine Urobilinogen Ur Leukocyte Esterase Urine RBC Urine WBC Urine Bacteria Ur Culture Indicated? Micro UA Comment U Morph 300 ng/mL cutoff Ur Oxycodone Screen Urine Methadone Screen Ur Barbiturates Screen U Tricyclic Antidepress Ur Phencyclidine Scrn Ur Amphetamines Screen U Methamphetamines Scrn Ur MDMA Scrn (Ecstasy) U Benzodiazepines Scrn Urine Cocaine Screen U Marijuana (THC) Screen Ethyl Alcohol Ketones Influenza A (RT-PCR) Flu a negative Influenza B (RT-PCR) Flu b negative 03/08/19 22:10 WBC RBC Hgb Hct MCV MCH MCHC RDW Plt Count Neut % (Auto) Lymph % (Auto) [place] % (Auto) Eos % (Auto) Baso % (Auto) Neut # (Auto) Lymph # (Auto) [place] # (Auto) Eos # (Auto) Baso # (Auto) ABG pH 7.08 L* ABG pCO2 12.0 L* ABG pO2 130 H ABG HCO3 4 L ABG Total CO2 5 L ABG O2 Saturation 98 ABG Base Excess -26.0 L FiO2 0.21 Sodium Potassium Chloride Carbon Dioxide BUN Creatinine Estimated GFR BUN/Creatinine Ratio Glucose Hemoglobin A1c Lactate Calcium Phosphorus Magnesium Total Bilirubin AST ALT Alkaline Phosphatase Total Creatine Kinase CK-MB (CK-2) CK-MB (CK-2) Rel Index Troponin I Total Protein Albumin Globulin Albumin/Globulin Ratio Procalcitonin Urine Color Urine Appearance Urine pH Ur Specific [place] Urine Protein Urine Glucose (UA) Urine Ketones Urine Occult Blood Urine Nitrate Urine Bilirubin Urine Urobilinogen Ur Leukocyte Esterase Urine RBC Urine WBC Urine Bacteria Ur Culture Indicated? Micro UA Comment U Morph 300 ng/mL cutoff Ur Oxycodone Screen Urine Methadone Screen Ur Barbiturates Screen U Tricyclic Antidepress Ur Phencyclidine Scrn Ur Amphetamines Screen U Methamphetamines Scrn Ur MDMA Scrn (Ecstasy) U Benzodiazepines Scrn Urine Cocaine Screen U Marijuana (THC) Screen Ethyl Alcohol Ketones Influenza A (RT-PCR) Influenza B (RT-PCR) Assessment & Plan Assessment & Plan narrative: This is a 49-year-old male who is a type 1.5 diabetic by history on insulin pump who presents to the ER with DKA with onset of symptoms 3 days previous. Patient notes blood sugars greater than 500 for 2 days. Patient states he began feeling ill and yesterday began feeling nauseated with vomiting. 1. Diabetic ketoacidosis, acute, present on admission, active -patient with DKA with onset of symptoms 3 days ago. -patient is on insulin pump but is not forthcoming with any further information and becomes agitated with questioning. -no source of illness identified, patient with elevated white count at 25.3, chest x-ray is negative, procalcitonin is 0.27 and urinalysis negative, will check flu A/B. -patient received 6 units of insulin IV and started on insulin drip in the emergency department. -will continue insulin drip per protocol. -monitor electrolytes every 4 hours including BMP, Mag and phos. -will continue rehydration with 0.45% saline. -will transition to D5/0.45% saline at 150 cc/hour when blood sugars less than 250. -will monitor anion gap and when closed and blood sugars stable and can tolerate p.o. intake will transition to subcu insulin. 2. Hyperkalemia, acute, present on admission, active. -initial lab results demonstrated potassium of 6.2, renal function is impaired with a creatinine of 1.7. -labs recheck to following rehydration showing elevation of potassium to 7.3. -the patient is given albuterol in the emergency department. -ordered 50 mEq sodium bicarb x1 now in the setting acidosis with severe hyperkalemia. -will follow electrolytes every 4 hours and treat as indicated. 3. ST-elevation on 12 lead EKG, acute, present on admission, active. -12 lead EKG demonstrates significant ST elevation in V1 and V2 without reciprocal changes. -patient denies chest pain complains of abdominal pain and has nausea. Troponin is negative at less than 0.012 and total CK is negative. -patient notably has elevated potassium at 6.2 and on recheck is 7.3. -cardiology is consulted prior to admission with recommendation to treat DKA and hyperkalemia and trend troponin. -will obtain troponin in the morning or sooner if the patient develops any chest pain. 4. Acute kidney injury, present on admission, active. -patient is acutely dehydrated secondary to DKA, clinically dry on exam. -patient presents with an elevated creatinine at 1.7 and a BUN of 32, improved to 1.5 while in the ER with hydration. -patient received 2 L of saline in the ER, will continue IV hydration. -will follow chemistries and renal function closely. 5. Liver cirrhosis, chronic, stable -related to hemochromatosis, MELD-Na score is 17, Child Reyes score is 6-class A. -prior remote history intoxication identified within the medical record, patient denies current alcohol intake and toxicology screen is negative. VTE prophylaxis: SCDs and Lovenox Diet: NPO except ice chips. The patient is admitted to the hospital to the severity of his illness and risk for complications and adverse events. The patient is admitted to the ICU as inpatient status. Scores GCS Lacrosse coma scale eye opening: Spontaneous Lacrosse coma scale verbal response: Orientated Lacrosse coma scale motor response: Obey commands Lacrosse coma scale total score: 15
[2019-03-09] VITALS (14 sets, daily range): BP systolic 125–150; BP diastolic 60–86; PULSE 98–122; RESP 16–23; TEMP 37–37.7; O2SAT 93–100; BMI 21.9
[2019-03-09] MEDS: SODIUM BICARB 8.4% SYRINGE 50 MEQ IV (00:13)
[2019-03-09 00:23] LABS: Magnesium 2.4 mg/dL (1.6-2.3); Phosphorous 5.6 mg/dL (2.5-4.5)
[2019-03-09 00:39] LABS: BUN Creatinine Ratio 22.7 (6-22); Blood Urea Nitrogen 34 mg/dL (9-20); Chloride 101 mmol/L (98-107); Estimated Glomerular Filt Rate 49.9 mL/min (>60); HEMOLYSIS 15 (0-50); Potassium 5.3 mmol/L (3.4-5.1); Sodium 136 mmol/L (137-145)
[2019-03-09 00:49] LABS: Glucose 629 mg/dL (70-100)
[2019-03-09 00:50] LABS: Carbon Dioxide 6 mmol/L (22-32)
[2019-03-09] MEDS: SODIUM CHLORIDE 0.9% 1,000 ML 500 ML IV (02:00)
[2019-03-09] MEDS: SODIUM CHLORIDE 0.45% 1,000 ML 150 ML IV (04:13)
[2019-03-09 05:08] LABS: Add Manual Diff / Slide Review NO; Basophils Absolute Auto 100 /uL (0-100); Basophils Percent Auto 0.4 % (0-2); Eosinophils Absolute Auto 0 /uL (0-450); Hematocrit 39.5 % (41-53); Hemoglobin 13.4 g/dL (13.5-17.5); Lymphocytes Absolute Auto 1000 /uL (1100-4500); Lymphocytes Percent Auto 6.8 % (25-40); Mean Corpuscular HGB Conc 34.1 % (30-36); Mean Corpuscular Hemoglobin 34.4 PG (26-34); Mean Corpuscular Volume 101.1 fL (80-100); Monocytes Absolute Auto 1300 /uL (0-900); Monocytes Percent Auto 8.9 % (3-14); Neutrophils Absolute Auto 12100 /uL (1500-7000); Neutrophils Percent Auto 83.9 % (50-75); Platelet Count 91 X10^3/uL (150-400); Red Cell Distribution Width 14.1 % (11.6-14.8); White Blood Cell Count 14.4 X10^3/uL (4.5-11.0)
[2019-03-09 05:12] LABS: Phosphorous 1.4 mg/dL (2.5-4.5)
[2019-03-09 05:13] LABS: BUN Creatinine Ratio 37.8 (6-22); Blood Urea Nitrogen 34 mg/dL (9-20); Calcium 8.5 mg/dL (8.4-10.2); Carbon Dioxide 13 mmol/L (22-32); Chloride 106 mmol/L (98-107); Estimated Glomerular Filt Rate > 60.0 mL/min (>60); Glucose 321 mg/dL (70-100); HEMOLYSIS < 15 (0-50); Potassium 3.8 mmol/L (3.4-5.1); Sodium 135 mmol/L (137-145)
[2019-03-09 05:25] LABS: Troponin I < 0.012 ng/mL (0.01-0.034)
[2019-03-09] MEDS: POTASSIUM CHLORIDE 40 MEQ in SODIUM CHLORIDE 0.9% 500 ML 130 ML IV (05:56)
--- NOTE | 2019-03-09 06:13 | PC.ADMIT ---
[address] Admission Note: The patient,Tutu Martin,49 y/o, was given written information regarding hospital policies, unit procedures and contact persons. Patient's smoking status: Current every day smoker. Vital Signs - 8 hr 03/08/19 22:44 03/09/19 00:11 03/09/19 01:00 Temperature 98.7 F 99.2 F Pulse Rate 127 H 122 H 113 H Respiratory Rate 25 H 22 23 Blood Pressure 150/74 H 135/76 Blood Pressure [Left Arm] 159/67 H Pulse Oximetry 99 98 100 03/09/19 02:00 03/09/19 03:00 03/09/19 04:00 Temperature 98.8 F 98.8 F 99.5 F Pulse Rate 106 H 109 H 107 H Respiratory Rate 20 21 22 Blood Pressure 131/60 125/65 130/64 Blood Pressure [Left Arm] Pulse Oximetry 96 97 93 03/09/19 05:00 03/09/19 06:00 Temperature 99.9 F H Pulse Rate 103 H 104 H Respiratory Rate 18 16 Blood Pressure 130/64 126/66 Blood Pressure [Left Arm] Pulse Oximetry 95 97 Admitted to ICU at midnight, insulin gtt infusing at 9.6units/hr per protocol, 1 amp Bi-carb given by ED RN at bedside. Patient is fatigued but oriented x4, tolerating ice chips without nausea. ST 120 initially but down to 110 within the hour. See assessment notes.
--- NOTE | 2019-03-09 06:17 | PC.NURSE ---
Night Note-Patient says he is feeling better. Insulin gtt 6.4units/hr by am, CBGs decreasing gradually, see flow sheet. Received 1 liter NS bolus over 2 hrs, then 1/2NS @ 150ml/hr. K+ down to 3.8 in am, 40Meq K+ rider started per protocol. Gap 16. VSS.
[2019-03-09] MEDS: INSULIN DRIP PREMIX 100 UNIT/100 ML PLAST..BAG 6.4 UNIT IV (08:15)
[2019-03-09] MEDS: DEXTROSE 5%-0.45% NS 1,000 ML 150 ML IV (08:15)
--- NOTE | 2019-03-09 08:50 | CM.DANOTE ---
DCP: Case received, EMR reviewed met with patient's mother, present in the room, for patient sleeping. Introduced self and role. Was able to obtain some baseline information from patient's mother. DCP assessment completed with information currently available. Patient is a 49 year old male who admitted yesterday evening to the care of the hospitalist team. PCP: Dr. Monzon. Payer: confirmed: [facility]. Patient came to the hospital via family vehicle secondary to nausea and vomiting. Patient is an insulin dependent diabetic, and had increased blood sugars. His current diagnosis is DKA. Patient sleeping at this time, mother present. He resides in a single family home, is single. He has another provider in [place] as well, unclear if this is his employment coordinator. Patient's father, Tutu, also lives in [place]. P: DCP to continue to follow and be available for any resources needed. Harini Us RN/Remote Sensing Research Scientist
[2019-03-09] MEDS: ENOXAPARIN 40 MG/0.4 ML SYRINGE SUBCUT (09:21)
[2019-03-09 09:56] LABS: Lactate (Lactic Acid) 1.1 mmol/L (0.7-2.1)
[2019-03-09 09:57] LABS: Alanine Aminotransferase 27 IU/L (<50); Albumin 3.4 g/dL (3.5-5.0); Albumin Globulin Ratio 1.5 (1.0-2.8); Alkaline Phosphatase 108 U/L (38-126); Aspartate Aminotransferase 29 IU/L (17-59); Bilirubin Total 0.8 mg/dL (0.2-1.3); Bilirubin Unconjugated 0.5 mg/dL (0.0-1.1); Globulin 2.2 g/dL (1.7-4.1); HEMOLYSIS < 15 (0-50); Total Protein 5.6 g/dL (6.3-8.2)
[2019-03-09 09:58] LABS: BUN Creatinine Ratio 48.6 (6-22); Blood Urea Nitrogen 34 mg/dL (9-20); Calcium 8.3 mg/dL (8.4-10.2); Carbon Dioxide 18 mmol/L (22-32); Chloride 112 mmol/L (98-107); Estimated Glomerular Filt Rate > 60.0 mL/min (>60); Glucose 237 mg/dL (70-100); HEMOLYSIS < 15 (0-50); Sodium 138 mmol/L (137-145)
[2019-03-09 10:22] LABS: HCO3 VBG 17 mmol/L (23-28); Oxygen Saturation VBG 91 % (70-75); PCO2 VBG 33.5 mmHg (45-50); PO2 VBG 66 mmHg (35-45); Total CO2 VBG 18 mmol/L (24-29)
[2019-03-09] MEDS: INSULIN NPH 100 UNIT/ML VIAL 14 UNIT SUBCUT (11:23)
--- NOTE | 2019-03-09 12:40 | PC.NURSE ---
Patient alert, oriented, denies pain and nausea. Ate 50% meal without difficulty, insulin infusion stopped per orders.
--- NOTE | 2019-03-09 14:38 | P.PN_ITS ---
Subjective Subjective Date Patient Seen: 03/09/19 Time Patient Seen: 14:41 Interval history: Tutu Martin is a 49-year-old male with type 1.5 diabetes who was admitted with DKA. He is seen for follow-up today. He currently feels well and much improved. He does not have any nausea vomiting, he denies abdominal pain. He has no fevers or chills. He denies chest pain or shortness of breath. He states that he last changed his insulin infusion site and cartri dge about 2 days ago. His anion gap and acidosis did resolve today. He was given NPH to approximate his basal insulin until a new infusion set and cartridge can arrive for the patient. Plan on placing this tonight around 6 or 7:00 p.m. to ensure that it is functioning correctly before discharge. Exam Vital Signs (past 8 hours): - 03/09/19 07:00 03/09/19 08:11 03/09/19 09:04 Temperature 99.8 F H Pulse Rate 102 H 104 H 103 H Respiratory Rate 18 19 19 Blood Pressure 147/86 H 129/61 131/70 Pulse Oximetry 97 93 97 03/09/19 11:37 Temperature 98.6 F Pulse Rate 98 H Respiratory Rate 23 Blood Pressure 136/83 Pulse Oximetry 98 Oxygen Delivery Method Room Air Oxygen Flow Rate 0 Narrative Exam Narrative: GENERAL APPEARANCE: Well developed, well nourished, in no acute distress. SKIN: Inspection of the skin reveals no rashes, ulcerations or petechiae. HEENT: The sclerae were anicteric and conjunctivae were pink and moist. Extraocular movements were intact and pupils were equal, round with normal accommodation. External inspection of the ears and nose showed no scars, lesion s, or masses. Lips, teeth, and gums showed normal mucosa. The oral mucosa, hard and soft palate, tongue and posterior pharynx were unremarkable. NECK: Supple and symmetric. There was no thyroid enlargement, and no tenderness, or masses were felt. CHEST: Normal AP diameter and normal contour without any kyphoscoliosis. LUNGS: Auscultation of the lungs revealed no wheezes, rhonchi, or rales. CARDIOVASCULAR: There was a regular rate and rhythm without any murmurs, gallops, rubs. Peripheral pulses were 2+ and symmetric. ABDOMEN: Soft and nontender with normal bowel sounds. No ascites was noted. MUSCULOSKELETAL: There was no tenderness or effusions noted. Muscle strength and tone were normal. EXTREMITIES: No cyanosis, clubbing or edema. NEUROLOGIC: Alert and oriented x 3. Normal affect. Gait was normal. Strength is +5/5 in the Upper Extremities and Lower Extremities Bilaterally. Sensation to touch was normal. Objective Labs Result Diagrams: 03/09/19 04:45 03/09/19 09:25 Labs: Laboratory Results - last 24 hr 03/08/19 03/08/19 03/08/19 19:43 19:43 19:43 WBC 25.3 H RBC 4.80 Hgb 16.6 Hct 50.8 MCV 105.8 H MCH 34.5 H MCHC 32.7 RDW 14.5 Plt Count 187 Neut % (Auto) 90.6 H Lymph % (Auto) 3.7 L [place] % (Auto) 5.1 Eos % (Auto) 0.0 L Baso % (Auto) 0.6 Neut # (Auto) 62135 H Lymph # (Auto) 1000 L [place] # (Auto) 1300 H Eos # (Auto) 0 Baso # (Auto) 100 ABG pH ABG pCO2 ABG pO2 ABG HCO3 ABG Total CO2 ABG O2 Saturation ABG Base Excess VBG pH VBG pCO2 VBG pO2 VBG HCO3 VBG Total CO2 VBG O2 Saturation VBG Base Excess FiO2 Sodium 134 L Potassium 6.2 H Chloride 93 L Carbon Dioxide < 5 L* BUN 32 H Creatinine 1.70 H Estimated GFR 43.2 L BUN/Creatinine Ratio 18.8 Glucose 692 H* Hemoglobin A1c Lactate Calcium 10.2 Phosphorus 8.6 H Magnesium 2.3 Total Bilirubin 2.3 H Conjugated Bilirubin Unconjugated Bilirubin AST 41 ALT 39 Alkaline Phosphatase 234 H Total Creatine Kinase CK-MB (CK-2) CK-MB (CK-2) Rel Index Troponin I Total Protein 8.2 Albumin 5.5 H Globulin 2.7 Albumin/Globulin Ratio 2.0 Procalcitonin 0.27 Urine Color Urine Appearance Urine pH Ur Specific [place] Urine Protein Urine Glucose (UA) Urine Ketones Urine Occult Blood Urine Nitrate Urine Bilirubin Urine Urobilinogen Ur Leukocyte Esterase Urine RBC Urine WBC Urine Bacteria Ur Culture Indicated? Micro UA Comment Nasal Screen MRSA (PCR) U Morph 300 ng/mL cutoff Ur Oxycodone Screen Urine Methadone Screen Ur Barbiturates Screen U Tricyclic Antidepress Ur Phencyclidine Scrn Ur Amphetamines Screen U Methamphetamines Scrn Ur MDMA Scrn (Ecstasy) U Benzodiazepines Scrn Urine Cocaine Screen U Marijuana (THC) Screen Ethyl Alcohol < 10 Ketones 13.26 H Influenza A (RT-PCR) Influenza B (RT-PCR) 03/08/19 03/08/19 03/08/19 19:43 19:43 19:43 WBC RBC Hgb Hct MCV MCH MCHC RDW Plt Count Neut % (Auto) Lymph % (Auto) [place] % (Auto) Eos % (Auto) Baso % (Auto) Neut # (Auto) Lymph # (Auto) [place] # (Auto) Eos # (Auto) Baso # (Auto) ABG pH ABG pCO2 ABG pO2 ABG HCO3 ABG Total CO2 ABG O2 Saturation ABG Base Excess VBG pH VBG pCO2 VBG pO2 VBG HCO3 VBG Total CO2 VBG O2 Saturation VBG Base Excess FiO2 Sodium Potassium Chloride Carbon Dioxide BUN Creatinine Estimated GFR BUN/Creatinine Ratio Glucose Hemoglobin A1c Lactate 5.8 H* Calcium Phosphorus Cancelled Magnesium Cancelled Total Bilirubin Conjugated Bilirubin Unconjugated Bilirubin AST ALT Alkaline Phosphatase Total Creatine Kinase 38 L CK-MB (CK-2) TNP CK-MB (CK-2) Rel Index TNP Troponin I < 0.012 Total Protein Albumin Globulin Albumin/Globulin Ratio Procalcitonin Urine Color Urine Appearance Urine pH Ur Specific [place] Urine Protein Urine Glucose (UA) Urine Ketones Urine Occult Blood Urine Nitrate Urine Bilirubin Urine Urobilinogen Ur Leukocyte Esterase Urine RBC Urine WBC Urine Bacteria Ur Culture Indicated? Micro UA Comment Nasal Screen MRSA (PCR) U Morph 300 ng/mL cutoff Ur Oxycodone Screen Urine Methadone Screen Ur Barbiturates Screen U Tricyclic Antidepress Ur Phencyclidine Scrn Ur Amphetamines Screen U Methamphetamines Scrn Ur MDMA Scrn (Ecstasy) U Benzodiazepines Scrn Urine Cocaine Screen U Marijuana (THC) Screen Ethyl Alcohol Ketones Influenza A (RT-PCR) Influenza B (RT-PCR) 03/08/19 03/08/19 03/08/19 19:43 19:43 19:43 WBC RBC Hgb Hct MCV MCH MCHC RDW Plt Count Neut % (Auto) Lymph % (Auto) [place] % (Auto) Eos % (Auto) Baso % (Auto) Neut # (Auto) Lymph # (Auto) [place] # (Auto) Eos # (Auto) Baso # (Auto) ABG pH 7.09 L* ABG pCO2 13.7 L* ABG pO2 128 H ABG HCO3 4 L ABG Total CO2 5 L ABG O2 Saturation 97 ABG Base Excess -26.0 L VBG pH VBG pCO2 VBG pO2 VBG HCO3 VBG Total CO2 VBG O2 Saturation VBG Base Excess FiO2 0.21 Sodium Potassium Chloride Carbon Dioxide BUN Creatinine Estimated GFR BUN/Creatinine Ratio Glucose Hemoglobin A1c 10.4 H Lactate Calcium Phosphorus Magnesium Total Bilirubin Conjugated Bilirubin Unconjugated Bilirubin AST ALT Alkaline Phosphatase Total Creatine Kinase CK-MB (CK-2) CK-MB (CK-2) Rel Index Troponin I Total Protein Albumin Globulin Albumin/Globulin Ratio Procalcitonin Urine Color Urine Appearance Urine pH Ur Specific [place] Urine Protein Urine Glucose (UA) Urine Ketones Urine Occult Blood Urine Nitrate Urine Bilirubin Urine Urobilinogen Ur Leukocyte Esterase Urine RBC Urine WBC Urine Bacteria Ur Culture Indicated? Micro UA Comment Nasal Screen MRSA (PCR) U Morph 300 ng/mL cutoff Ur Oxycodone Screen Urine Methadone Screen Ur Barbiturates Screen U Tricyclic Antidepress Ur Phencyclidine Scrn Ur Amphetamines Screen U Methamphetamines Scrn Ur MDMA Scrn (Ecstasy) U Benzodiazepines Scrn Urine Cocaine Screen U Marijuana (THC) Screen Ethyl Alcohol Cancelled Ketones Influenza A (RT-PCR) Influenza B (RT-PCR) 03/08/19 03/08/19 03/08/19 20:30 20:30 21:15 WBC RBC Hgb Hct MCV MCH MCHC RDW Plt Count Neut % (Auto) Lymph % (Auto) [place] % (Auto) Eos % (Auto) Baso % (Auto) Neut # (Auto) Lymph # (Auto) [place] # (Auto) Eos # (Auto) Baso # (Auto) ABG pH ABG pCO2 ABG pO2 ABG HCO3 ABG Total CO2 ABG O2 Saturation ABG Base Excess VBG pH VBG pCO2 VBG pO2 VBG HCO3 VBG Total CO2 VBG O2 Saturation VBG Base Excess FiO2 Sodium 133 L Potassium 7.3 H* Chloride 96 L Carbon Dioxide < 5 L* BUN 33 H Creatinine 1.50 H Estimated GFR 49.9 L BUN/Creatinine Ratio 22.0 Glucose 699 H* Hemoglobin A1c Lactate Calcium 9.2 Phosphorus Magnesium Total Bilirubin Conjugated Bilirubin Unconjugated Bilirubin AST ALT Alkaline Phosphatase Total Creatine Kinase CK-MB (CK-2) CK-MB (CK-2) Rel Index Troponin I Total Protein Albumin Globulin Albumin/Globulin Ratio Procalcitonin Urine Color Yellow Urine Appearance Clear Urine pH 5.0 Ur Specific [place] 1.020 Urine Protein Trace H Urine Glucose (UA) 3+ H Urine Ketones 2+ H Urine Occult Blood Trace-lysed Urine Nitrate Negative Urine Bilirubin Negative Urine Urobilinogen 0.2 Ur Leukocyte Esterase Negative Urine RBC None seen Urine WBC None seen Urine Bacteria None seen Ur Culture Indicated? Cult not indicated Micro UA Comment Microscopic normal Nasal Screen MRSA (PCR) U Morph 300 ng/mL cutoff Negative Ur Oxycodone Screen Negative Urine Methadone Screen Negative Ur Barbiturates Screen Negative U Tricyclic Antidepress Negative Ur Phencyclidine Scrn Negative Ur Amphetamines Screen Negative U Methamphetamines Scrn Negative Ur MDMA Scrn (Ecstasy) Negative U Benzodiazepines Scrn Negative Urine Cocaine Screen Negative U Marijuana (THC) Screen Negative Ethyl Alcohol Ketones Influenza A (RT-PCR) Influenza B (RT-PCR) 03/08/19 03/08/19 03/08/19 21:15 21:15 21:25 WBC RBC Hgb Hct MCV MCH MCHC RDW Plt Count Neut % (Auto) Lymph % (Auto) [place] % (Auto) Eos % (Auto) Baso % (Auto) Neut # (Auto) Lymph # (Auto) [place] # (Auto) Eos # (Auto) Baso # (Auto) ABG pH ABG pCO2 ABG pO2 ABG HCO3 ABG Total CO2 ABG O2 Saturation ABG Base Excess VBG pH VBG pCO2 VBG pO2 VBG HCO3 VBG Total CO2 VBG O2 Saturation VBG Base Excess FiO2 Sodium Potassium Chloride Carbon Dioxide BUN Creatinine Estimated GFR BUN/Creatinine Ratio Glucose Hemoglobin A1c Lactate 4.7 H* Calcium Phosphorus 7.5 H D Magnesium 2.2 Total Bilirubin Conjugated Bilirubin Unconjugated Bilirubin AST ALT Alkaline Phosphatase Total Creatine Kinase CK-MB (CK-2) CK-MB (CK-2) Rel Index Troponin I Total Protein Albumin Globulin Albumin/Globulin Ratio Procalcitonin Urine Color Urine Appearance Urine pH Ur Specific [place] Urine Protein Urine Glucose (UA) Urine Ketones Urine Occult Blood Urine Nitrate Urine Bilirubin Urine Urobilinogen Ur Leukocyte Esterase Urine RBC Urine WBC Urine Bacteria Ur Culture Indicated? Micro UA Comment Nasal Screen MRSA (PCR) U Morph 300 ng/mL cutoff Ur Oxycodone Screen Urine Methadone Screen Ur Barbiturates Screen U Tricyclic Antidepress Ur Phencyclidine Scrn Ur Amphetamines Screen U Methamphetamines Scrn Ur MDMA Scrn (Ecstasy) U Benzodiazepines Scrn Urine Cocaine Screen U Marijuana (THC) Screen Ethyl Alcohol Ketones Influenza A (RT-PCR) Flu a negative Influenza B (RT-PCR) Flu b negative 03/08/19 03/09/19 03/09/19 22:10 00:05 00:05 WBC RBC Hgb Hct MCV MCH MCHC RDW Plt Count Neut % (Auto) Lymph % (Auto) [place] % (Auto) Eos % (Auto) Baso % (Auto) Neut # (Auto) Lymph # (Auto) [place] # (Auto) Eos # (Auto) Baso # (Auto) ABG pH 7.08 L* ABG pCO2 12.0 L* ABG pO2 130 H ABG HCO3 4 L ABG Total CO2 5 L ABG O2 Saturation 98 ABG Base Excess -26.0 L VBG pH VBG pCO2 VBG pO2 VBG HCO3 VBG Total CO2 VBG O2 Saturation VBG Base Excess FiO2 0.21 Sodium 136 L Potassium 5.3 H D Chloride 101 Carbon Dioxide 6 L* BUN 34 H Creatinine 1.50 H Estimated GFR 49.9 L BUN/Creatinine Ratio 22.7 H Glucose 629 H* Hemoglobin A1c Lactate Calcium 9.0 Phosphorus 5.6 H D Magnesium 2.4 H Total Bilirubin Conjugated Bilirubin Unconjugated Bilirubin AST ALT Alkaline Phosphatase Total Creatine Kinase CK-MB (CK-2) CK-MB (CK-2) Rel Index Troponin I Total Protein Albumin Globulin Albumin/Globulin Ratio Procalcitonin Urine Color Urine Appearance Urine pH Ur Specific [place] Urine Protein Urine Glucose (UA) Urine Ketones Urine Occult Blood Urine Nitrate Urine Bilirubin Urine Urobilinogen Ur Leukocyte Esterase Urine RBC Urine WBC Urine Bacteria Ur Culture Indicated? Micro UA Comment Nasal Screen MRSA (PCR) U Morph 300 ng/mL cutoff Ur Oxycodone Screen Urine Methadone Screen Ur Barbiturates Screen U Tricyclic Antidepress Ur Phencyclidine Scrn Ur Amphetamines Screen U Methamphetamines Scrn Ur MDMA Scrn (Ecstasy) U Benzodiazepines Scrn Urine Cocaine Screen U Marijuana (THC) Screen Ethyl Alcohol Ketones Influenza A (RT-PCR) Influenza B (RT-PCR) 03/09/19 03/09/19 03/09/19 00:05 04:45 04:45 WBC 14.4 H RBC 3.90 L Hgb 13.4 L Hct 39.5 L MCV 101.1 H D MCH 34.4 H MCHC 34.1 RDW 14.1 Plt Count 91 L Neut % (Auto) 83.9 H Lymph % (Auto) 6.8 L [place] % (Auto) 8.9 Eos % (Auto) 0.0 L Baso % (Auto) 0.4 Neut # (Auto) 21276 H Lymph # (Auto) 1000 L [place] # (Auto) 1300 H Eos # (Auto) 0 Baso # (Auto) 100 ABG pH ABG pCO2 ABG pO2 ABG HCO3 ABG Total CO2 ABG O2 Saturation ABG Base Excess VBG pH VBG pCO2 VBG pO2 VBG HCO3 VBG Total CO2 VBG O2 Saturation VBG Base Excess FiO2 Sodium 135 L Potassium 3.8 D Chloride 106 Carbon Dioxide 13 L BUN 34 H Creatinine 0.90 Estimated GFR > 60.0 BUN/Creatinine Ratio 37.8 H Glucose 321 H D Hemoglobin A1c Lactate Calcium 8.5 Phosphorus Magnesium Total Bilirubin Conjugated Bilirubin Unconjugated Bilirubin AST ALT Alkaline Phosphatase Total Creatine Kinase CK-MB (CK-2) CK-MB (CK-2) Rel Index Troponin I Total Protein Albumin Globulin Albumin/Globulin Ratio Procalcitonin Urine Color Urine Appearance Urine pH Ur Specific [place] Urine Protein Urine Glucose (UA) Urine Ketones Urine Occult Blood Urine Nitrate Urine Bilirubin Urine Urobilinogen Ur Leukocyte Esterase Urine RBC Urine WBC Urine Bacteria Ur Culture Indicated? Micro UA Comment Nasal Screen MRSA (PCR) Negative for mrsa U Morph 300 ng/mL cutoff Ur Oxycodone Screen Urine Methadone Screen Ur Barbiturates Screen U Tricyclic Antidepress Ur Phencyclidine Scrn Ur Amphetamines Screen U Methamphetamines Scrn Ur MDMA Scrn (Ecstasy) U Benzodiazepines Scrn Urine Cocaine Screen U Marijuana (THC) Screen Ethyl Alcohol Ketones Influenza A (RT-PCR) Influenza B (RT-PCR) 03/09/19 03/09/19 03/09/19 04:45 04:45 09:25 WBC RBC Hgb Hct MCV MCH MCHC RDW Plt Count Neut % (Auto) Lymph % (Auto) [place] % (Auto) Eos % (Auto) Baso % (Auto) Neut # (Auto) Lymph # (Auto) [place] # (Auto) Eos # (Auto) Baso # (Auto) ABG pH ABG pCO2 ABG pO2 ABG HCO3 ABG Total CO2 ABG O2 Saturation ABG Base Excess VBG pH VBG pCO2 VBG pO2 VBG HCO3 VBG Total CO2 VBG O2 Saturation VBG Base Excess FiO2 Sodium 138 Potassium 4.0 Chloride 112 H Carbon Dioxide 18 L BUN 34 H Creatinine 0.70 Estimated GFR > 60.0 BUN/Creatinine Ratio 48.6 H Glucose 237 H Hemoglobin A1c Lactate Calcium 8.3 L Phosphorus 1.4 L D Magnesium 2.0 Total Bilirubin Conjugated Bilirubin Unconjugated Bilirubin AST ALT Alkaline Phosphatase Total Creatine Kinase CK-MB (CK-2) CK-MB (CK-2) Rel Index Troponin I < 0.012 Total Protein Albumin Globulin Albumin/Globulin Ratio Procalcitonin Urine Color Urine Appearance Urine pH Ur Specific [place] Urine Protein Urine Glucose (UA) Urine Ketones Urine Occult Blood Urine Nitrate Urine Bilirubin Urine Urobilinogen Ur Leukocyte Esterase Urine RBC Urine WBC Urine Bacteria Ur Culture Indicated? Micro UA Comment Nasal Screen MRSA (PCR) U Morph 300 ng/mL cutoff Ur Oxycodone Screen Urine Methadone Screen Ur Barbiturates Screen U Tricyclic Antidepress Ur Phencyclidine Scrn Ur Amphetamines Screen U Methamphetamines Scrn Ur MDMA Scrn (Ecstasy) U Benzodiazepines Scrn Urine Cocaine Screen U Marijuana (THC) Screen Ethyl Alcohol Ketones Influenza A (RT-PCR) Influenza B (RT-PCR) 03/09/19 03/09/19 03/09/19 09:25 09:25 09:30 WBC RBC Hgb Hct MCV MCH MCHC RDW Plt Count Neut % (Auto) Lymph % (Auto) [place] % (Auto) Eos % (Auto) Baso % (Auto) Neut # (Auto) Lymph # (Auto) [place] # (Auto) Eos # (Auto) Baso # (Auto) ABG pH ABG pCO2 ABG pO2 ABG HCO3 ABG Total CO2 ABG O2 Saturation ABG Base Excess VBG pH 7.30 L VBG pCO2 33.5 L VBG pO2 66 H VBG HCO3 17 L VBG Total CO2 18 L VBG O2 Saturation 91 H VBG Base Excess -10.0 L FiO2 Sodium Potassium Chloride Carbon Dioxide BUN Creatinine Estimated GFR BUN/Creatinine Ratio Glucose Hemoglobin A1c Lactate 1.1 Calcium Phosphorus Magnesium Total Bilirubin 0.8 Conjugated Bilirubin 0.0 Unconjugated Bilirubin 0.5 AST 29 ALT 27 Alkaline Phosphatase 108 D Total Creatine Kinase CK-MB (CK-2) CK-MB (CK-2) Rel Index Troponin I Total Protein 5.6 L Albumin 3.4 L Globulin 2.2 Albumin/Globulin Ratio 1.5 Procalcitonin Urine Color Urine Appearance Urine pH Ur Specific [place] Urine Protein Urine Glucose (UA) Urine Ketones Urine Occult Blood Urine Nitrate Urine Bilirubin Urine Urobilinogen Ur Leukocyte Esterase Urine RBC Urine WBC Urine Bacteria Ur Culture Indicated? Micro UA Comment Nasal Screen MRSA (PCR) U Morph 300 ng/mL cutoff Ur Oxycodone Screen Urine Methadone Screen Ur Barbiturates Screen U Tricyclic Antidepress Ur Phencyclidine Scrn Ur Amphetamines Screen U Methamphetamines Scrn Ur MDMA Scrn (Ecstasy) U Benzodiazepines Scrn Urine Cocaine Screen U Marijuana (THC) Screen Ethyl Alcohol Ketones Influenza A (RT-PCR) Influenza B (RT-PCR) Assessment & Plan Assessment & Plan narrative: This is a 49-year-old male who is a type 1.5 diabetic by history on insulin pump who presents to the ER with DKA with onset of symptoms 3 days previous. Patient notes blood sugars greater than 500 for 2 days. He is admitted for DKA. His gap is closed and he is started on subcutaneous insulin this afternoon. Will have him change his insulin pump cartridge and infusion set, and ensure that his glucose is controlled on his insulin pump overnight before discharge likely tomorrow. 1. Diabetic ketoacidosis, acute, present on admission, active -patient with DKA with onset of symptoms 3 days ago. -patient is on insulin pump. Uses 42 units of basal insulin, and average total bolus amount of 26 units in the last 14 days per his insulin pump. Until then NPH 14 units q8 hr and 8 units of lispro with meals as well as sliding scale. -no source of illness identified, patient with elevated white count at 25.3, chest x-ray is negative, procalcitonin is 0.27 and urinalysis negative, flu is negative. -patient received 6 units of insulin IV and started on insulin drip in the emergency department -he was continued on insulin drip protocol until his anion gap improved, his bicarb improved, and gas normalized. He was given 14 units of NPH to approximate his average basal use. He will place his insulin pump on tonight, and we will monitor him overnight and plan for discharge tomorrow. -will repeat labs in the morning 2. Hyperkalemia, acute, present on admission, resolved. -initial lab results demonstrated potassium of 6.2, renal function is impaired with a creatinine of 1.7. -labs recheck to following rehydration showing elevation of potassium to 7.3. -the patient is given albuterol in the emergency department. -ordered 50 mEq sodium bicarb x1 now in the setting acidosis with severe hyperkalemia. -now improved with management of DKA as noted above. 3. ST-elevation on 12 lead EKG, acute, present on admission, active. -12 lead EKG demonstrates significant ST elevation in V1 and V2 without reciprocal changes. -patient denies chest pain complains of abdominal pain and has nausea. Troponin is negative at less than 0.012 and total CK is negative. -patient notably has elevated potassium at 6.2 and on recheck is 7.3. -cardiology is consulted prior to admission with recommendation to treat DKA and hyperkalemia and trend troponin. -will repeat EKG today now that potassium has improved and DKA has resolved. 4. Acute kidney injury, present on admission, resolved. -patient is acutely dehydrated secondary to DKA, clinically dry on exam. -patient presents with an elevated creatinine at 1.7 and a BUN of 32, improved to 1.5 while in the ER with hydration and now resolved at 0.7. -patient received 2 L of saline in the ER, and was continued on IV fluids which are now stopped As patient is able to tolerate p.o. intake. -will follow chemistries and renal function closely. 5. Liver cirrhosis, chronic, stable -related to hemochromatosis, MELD-Na score is 17, Child Reyes score is 6-class A. -prior remote history intoxication identified within the medical record, patient denies current alcohol intake and toxicology screen is negative. VTE prophylaxis: SCDs and Lovenox Diet: Carb consistent I spent 30 minutes providing critical care management this patient. His DKA has now resolved and he can be listed for the regular floor. This excludes time spent in performing separately billed procedures. The patient is admitted to the hospital to the severity of his illness and risk for complications and adverse events.
[2019-03-09] MEDS: INSULIN ASPART 100 UNIT/ML INSULN PEN 8 UNIT SUBCUT (17:20)
[2019-03-09] MEDS: INSULIN ASPART 100 UNIT/ML INSULN PEN SUBCUT (17:20)
--- NOTE | 2019-03-09 18:30 | PC.NURSE ---
Patient resting in bed most of the shift. Up to the bathroom independently. Insulin gtt stopped at 1230. Patient was able to get a refill for his own insulin pump and dosed himself 7.5units at 1815. Per to recheck blood sugar at 2030. Patient alert and oriented.
[2019-03-09 21:26] LABS: Lactate 2HR (Lactic Acid Rflx) 4.7 mmol/L (0.7-2.1)
[2019-03-10] MEDS: ACETAMINOPHEN 325 MG TABLET 650 MG PO (01:24)
--- NOTE | 2019-03-10 01:49 | PC.NURSE ---
Addendum entered by Sandy Reilly R.N. 03/10/19 01:52: 0124 Patient up to bathroom with assist and reports he was able to have BM although is constipated. Medicated now with Tylenol after pharmacy verification. Original Note: 0010 Patient is alert and oriented. Breath sounds diminished at bases but CTA with RA sat of 95%. HRR but tachy at 101; telemetry reading was ST. Complained of heartburn which was relieved with drinking milk. BT present and abdomen is soft. Denies dysuria, frequency or urgency. Is able to turn self. Reports he feels weak and unsteady when up so instructed to call for assistance when needing to get out of bed. CBG was 239 and patient administered 2 units insulin via insulin pump. Complains of 4/10 headache; Ziyad HOOK, informed and order received for Tylenol and awaiting verification by night pharmacy. Fall risk score is moderate but patient verbalizes agreement to call for assistance and is aware bed alarm will be activated if found to not comply.
[2019-03-10 05:18] VITALS: BP 130/80; PULSE 88; RESP 18; TEMP 37; O2SAT 98
[2019-03-10 05:50] LABS: Add Manual Diff / Slide Review NO; Basophils Absolute Auto 0 /uL (0-100); Basophils Percent Auto 0.4 % (0-2); Eosinophils Absolute Auto 0 /uL (0-450); Eosinophils Percent Auto 0.5 % (2-4); Hematocrit 36.7 % (41-53); Lymphocytes Absolute Auto 1000 /uL (1100-4500); Lymphocytes Percent Auto 14.1 % (25-40); Mean Corpuscular HGB Conc 35.5 % (30-36); Mean Corpuscular Hemoglobin 34.9 PG (26-34); Mean Corpuscular Volume 98.3 fL (80-100); Monocytes Absolute Auto 400 /uL (0-900); Monocytes Percent Auto 6.1 % (3-14); Neutrophils Absolute Auto 5600 /uL (1500-7000); Neutrophils Percent Auto 78.9 % (50-75); Platelet Count 61 X10^3/uL (150-400); Red Blood Cell Count 3.73 X10^6/uL (4.5-5.9); Red Cell Distribution Width 14.4 % (11.6-14.8); White Blood Cell Count 7.1 X10^3/uL (4.5-11.0)
[2019-03-10 06:04] LABS: BUN Creatinine Ratio 43.3 (6-22); Blood Urea Nitrogen 26 mg/dL (9-20); Calcium 8.8 mg/dL (8.4-10.2); Carbon Dioxide 23 mmol/L (22-32); Chloride 105 mmol/L (98-107); Estimated Glomerular Filt Rate > 60.0 mL/min (>60); Glucose 146 mg/dL (70-100); HEMOLYSIS < 15 (0-50); Magnesium 2.2 mg/dL (1.6-2.3); Phosphorous 1.5 mg/dL (2.5-4.5); Potassium 3.4 mmol/L (3.4-5.1); Sodium 134 mmol/L (137-145)
[2019-03-10 08:00] VITALS: BP 140/82; PULSE 92; RESP 16; TEMP 36.6; O2SAT 96
[2019-03-10] MEDS: ENOXAPARIN 40 MG/0.4 ML SYRINGE SUBCUT (09:01)
--- NOTE | 2019-03-10 09:04 | P.DS_ITS ---
History of Present Illness History of Present Illness Date Patient Seen: 03/10/19 Time Patient Seen: 09:04 Chief complaint: STATES VOMITING, HIGH BLOOD SUGAR Narrative: As per MONSTER Giron: Mr. 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 Patient is a type 1.5 diabetic on insulin pump. The patient is not very forthcoming with medical information stating he feels delirious. He is followed for his diabetes by provider in [place]. The patient states his symptoms and nausea vomiting had become progressive and describes general malaise. Reports no headaches or dizziness and has no nasal congestion or sore throat. He denies shortness of breath or chest pain and has no palpitations. Describes general abdominal pain with aforementioned nausea without vomiting. Patient denies pre-existing gastroparesis or neuropathy. Reports no changes in bowel or bladder habits. Upon arrival the ER the patient is afebrile with temperature 97.6?, he is tachycardic with a heart rate 124, pressure is 172/71, respirations are 28 saturating 99% on room air. A chest x-ray was taken which shows no acute cardiopulmonary pathology. EKG is obtained which shows ST elevation in V1 V2 without ulcers hip recall changes. On laboratory analysis the patient has an elevated white count 25.3, hemoglobin of 16.6 and hematocrit of 50.8 and platelets of 187. On chemistries he has a low sodium at 1:34 a.m. elevated potassium at 6.2, chloride 93 with a CO2 of less than 5, BUN of 32 and creatinine 1.7. His blood sugar is found to be 6 and 92. ABGs drawn shows pH of 7.09, pCO2 of 13.7, PO2 of 128, bicarb of 4 with a base excess of -26 on room air. He has an elevated lactate at 5.8 with a negative procalcitonin is 0.27. He has a troponin that is negative at less than 0.012 and a negative total CK. He has an elevated bilirubin at 2.3 with an AST of 41, ALT of 39 and alkaline phosphatase of 234. His ketones are measured at 13.26, his phosphorus at 7.5 and magnesium is 2.2. On urinalysis the he has 3+ glucose and is positive for ketones but no indication of infection. Cardiology is consulted related to the ST-elevation in V1 and V2 in the setting of hyperkalemia. The recommendations received to treat the hyperkalemia and DKA and trend the troponin. The patient is given 6 units of insulin IV and started on insulin infusion. He has received 2 L of normal saline in the ER. He is admitted to the ICU on the medicine service for diabetic ketoacidosis. Discharge Providers Provider Date of admission: 03/08/19 21:25 Discharge Date: 03/10/19 Primary care physician: Philip Monzon MD Consults: 03/08/19 21:57 Consult to Dietitian, Adult Routine Comment: Reason For Exam: DKA, IDDM type 1.5 Consult to Discharge Planning Routine Comment: Discharge provider: Brijesh Liang DO Summary Hospital Course Discharge Diagnosis: 1. Diabetic ketoacidosis, acute, present on admission, resolved 2. Hyperkalemia and hyperphophatemia, acute, present on admission, resolved. 3. ST-elevation on 12 lead EKG, acute, present on admission, active. 4. Acute kidney injury, present on admission, resolved. 5. Liver cirrhosis, chronic, stable Hospital Course: Tutu Martin is a 49-year-old male who is a type 1.5 diabetic by history on insulin pump who presented to the ER with DKA with onset of symptoms 3 days prior to admission. Patient noted blood sugars greater than 500 for 2 days. He was admitted for DKA. His gap closed on an insulin infusion, the patient was titrated off of the insulin drip and he replaced his home insulin pump. His insulin pump appear to be working with good control of his sugars. He was discharged home once his pump appear to be in working order. 1. Diabetic ketoacidosis, acute, present on admission, active -patient with DKA with onset of symptoms 3 days ago. -patient is on insulin pump. Uses 42 units of basal insulin, and average total bolus amount of 26 units in the last 14 days per his insulin pump. Patient was given 14 units of NPH as a bridge until his pump supplies could be brought in. He resumed his insulin pump and his sugars remain controlled. Once this was confirmed he was discharged home. -no source of illness identified, patient with elevated white count at 25.3, chest x-ray is negative, procalcitonin is 0.27 and urinalysis negative, flu is negative. His leukocytosis resolved prior to discharge. -patient received 6 units of insulin IV and started on insulin drip in the emergency department -he was continued on insulin drip protocol until his anion gap improved, his bicarb improved, and gas normalized. He was given 14 units of NPH to approximate his average basal use as noted above. -patient should follow-up with his primary care provider and quarantine officer as previously scheduled. -was given 50 mEq sodium bicarb x1 for severe metabolic acidosis with low bicarb. He improved with treatment of DKA. 2. Hyperkalemia and hyperphophatemia, acute, present on admission, resolved. -initial lab results demonstrated potassium of 6.2, very high phosphourous. Renal function was impaired on admission with a creatinine of 1.7. -the patient was given albuterol in the emergency department. -electrolytes improved with treatment of DKA as noted above. 3. ST-elevation on 12 lead EKG, acute, present on admission, active. -12 lead EKG demonstrates significant ST elevation in V1 and V2 without reciprocal changes. -patient denies chest pain complains of abdominal pain and has nausea. Troponin is negative at less than 0.012 and total CK is negative. -patient notably has elevated potassium at 6.2 and on recheck is 7.3. -cardiology is consulted prior to admission with recommendation to treat DKA and hyperkalemia and trend troponin. Improved with Treatment of DKA. 4. Acute kidney injury, present on admission, resolved. -patient was acutely dehydrated secondary to DKA, clinically dry on exam. -patient presented with an elevated creatinine at 1.7 and a BUN of 32, improved to 1.5 while in the ER with hydration and then resolved quickly with treatment of DKA. 5. Liver cirrhosis, chronic, stable -related to hemochromatosis, MELD-Na score is 17, Child Reyes score is 6-class A. -prior remote history intoxication identified within the medical record, patient denies current alcohol intake and toxicology screen is negative. -patient will follow up with primary care provider as previously scheduled. Time Spent with Patient Time spent: Greater than 30 minutes Exam Vital Signs (past 8 hours): - 03/10/19 05:18 03/10/19 08:00 Temperature 98.6 F 97.9 F Pulse Rate 88 92 H Respiratory Rate 18 16 Blood Pressure 130/80 140/82 Pulse Oximetry 98 96 Oxygen Delivery Method Room Air Oxygen Flow Rate 0 Narrative Exam Narrative: GENERAL APPEARANCE: Well developed, well nourished, in no acute distress. SKIN: Inspection of the skin reveals no rashes, ulcerations or petechiae. HEENT: The sclerae were anicteric and conjunctivae were pink and moist. Extraocular movements were intact and pupils were equal, round with normal accommodation. External inspection of the ears and nose showed no scars, lesions, or masses. Lips, teeth, and gums showed normal mucosa. The oral mucosa, hard and soft palate, tongue and posterior pharynx were unremarkable. NECK: Supple and symmetric. There was no thyroid enlargement, and no tenderness, or masses were felt. CHEST: Normal AP diameter and normal contour without any kyphoscoliosis. LUNGS: Auscultation of the lungs revealed no wheezes, rhonchi, or rales. CARDIOVASCULAR: There was a regular rate and rhythm without any murmurs, gallops, rubs. Peripheral pulses were 2+ and symmetric. ABDOMEN: Soft and nontender with normal bowel sounds. No ascites was noted. Insulin pump in place, no surrounding erythema or induration. MUSCULOSKELETAL: There was no tenderness or effusions noted. Muscle strength and tone were normal. EXTREMITIES: No cyanosis, clubbing or edema. NEUROLOGIC: Alert and oriented x 3. Normal affect. Gait was normal. Strength is +5/5 in the Upper Extremities and Lower Extremities Bilaterally. Sensation to touch was normal. Objective Labs Result Diagrams: 03/10/19 05:10 03/10/19 05:10 Labs: Laboratory Results - last 24 hr 03/08/19 03/09/19 03/09/19 21:15 09:25 09:25 WBC RBC Hgb Hct MCV MCH MCHC RDW Plt Count Neut % (Auto) Lymph % (Auto) [place] % (Auto) Eos % (Auto) Baso % (Auto) Neut # (Auto) Lymph # (Auto) [place] # (Auto) Eos # (Auto) Baso # (Auto) VBG pH VBG pCO2 VBG pO2 VBG HCO3 VBG Total CO2 VBG O2 Saturation VBG Base Excess Sodium 138 Potassium 4.0 Chloride 112 H Carbon Dioxide 18 L BUN 34 H Creatinine 0.70 Estimated GFR > 60.0 BUN/Creatinine Ratio 48.6 H Glucose 237 H Lactate 4.7 H* 1.1 Calcium 8.3 L Phosphorus Magnesium Total Bilirubin Conjugated Bilirubin Unconjugated Bilirubin AST ALT Alkaline Phosphatase Total Protein Albumin Globulin Albumin/Globulin Ratio 03/09/19 03/09/19 03/10/19 09:25 09:30 05:10 WBC 7.1 D RBC 3.73 L Hgb 13.0 L Hct 36.7 L MCV 98.3 MCH 34.9 H MCHC 35.5 RDW 14.4 Plt Count 61 L Neut % (Auto) 78.9 H Lymph % (Auto) 14.1 L [place] % (Auto) 6.1 Eos % (Auto) 0.5 L Baso % (Auto) 0.4 Neut # (Auto) 5600 Lymph # (Auto) 1000 L [place] # (Auto) 400 Eos # (Auto) 0 Baso # (Auto) 0 VBG pH 7.30 L VBG pCO2 33.5 L VBG pO2 66 H VBG HCO3 17 L VBG Total CO2 18 L VBG O2 Saturation 91 H VBG Base Excess -10.0 L Sodium Potassium Chloride Carbon Dioxide BUN Creatinine Estimated GFR BUN/Creatinine Ratio Glucose Lactate Calcium Phosphorus Magnesium Total Bilirubin 0.8 Conjugated Bilirubin 0.0 Unconjugated Bilirubin 0.5 AST 29 ALT 27 Alkaline Phosphatase 108 D Total Protein 5.6 L Albumin 3.4 L Globulin 2.2 Albumin/Globulin Ratio 1.5 03/10/19 05:10 WBC RBC Hgb Hct MCV MCH MCHC RDW Plt Count Neut % (Auto) Lymph % (Auto) [place] % (Auto) Eos % (Auto) Baso % (Auto) Neut # (Auto) Lymph # (Auto) [place] # (Auto) Eos # (Auto) Baso # (Auto) VBG pH VBG pCO2 VBG pO2 VBG HCO3 VBG Total CO2 VBG O2 Saturation VBG Base Excess Sodium 134 L Potassium 3.4 Chloride 105 Carbon Dioxide 23 BUN 26 H Creatinine 0.60 L Estimated GFR > 60.0 BUN/Creatinine Ratio 43.3 H Glucose 146 H Lactate Calcium 8.8 Phosphorus 1.5 L Magnesium 2.2 Total Bilirubin Conjugated Bilirubin Unconjugated Bilirubin AST ALT Alkaline Phosphatase Total Protein Albumin Globulin Albumin/Globulin Ratio Discharge Plan Discharge Plan Patient Disposition: Home Discharge comment: You were admitted to the hospital with DKA. no infectious causes were found, and most likely there was an issue with your insulin or the infusion device. You improved with an insulin drip, and you replaced your infusion set and your pump was working properly. You were discharged home, no medication changes are necessary at this time. Discharge orders & Medications Prescriptions: Continued Novolog U-100 Insulin aspart 100 unit/mL solution See Rx Instructions .ROUTE .COMPLEX RF: 0 Follow up/Referrals: Philip Monzon MD [Primary Care Provider] - Discharge Health Status Health Concerns: DKA Diet/Activity/Treatments Diet: Diet as Tolerated Activity: As tolerated Visit Report/Discharge Packet Instructions: DI for Diabetic Ketoacidosis Discharge Data Primary Care Provider: Philip Monzon Discharges patient from system. Discharge Date/Time: 03/10/19 11:00
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
[2019-03-12 11:06] LABS: TCO2 ABG < 5 mmol/L (21-31)
[2019-03-12 11:07] LABS: TCO2 ABG < 5 mmol/L (21-31)
== END 2019-03-10 11:00 | disposition home or self-care (01) | DRG 420 ==
LOC: ED 20:32 → AC 21:26 → ICU 22:37 → AC 03-09 19:00
PROVIDERS: Internal Medicine; Admitting Provider Nurse Practitioner Adult Health; Emergency Provider Emergency Medicine; Family Provider Family Medicine; PCP Family Medicine; Visit Provider Nurse Practitioner Adult Health
DX: E13.10 Other specified diabetes mellitus with ketoacidosis without coma (principal); N17.9 Acute kidney failure, unspecified; E87.5 Hyperkalemia; K74.69 Other cirrhosis of liver; E83.119 Hemochromatosis, unspecified; F17.210 Nicotine dependence, cigarettes, uncomplicated; Z96.41 Presence of insulin pump (external) (internal)
CPT/HCPCS: 36415; 36600; 71045; 80048; 80053; 80076; 80305; 80320; 81001; 82009; 82550; 82805; 82962; 83036; 83605; 83735; 84100; 84145; 84484; 85025; 87040; 87502; 87797; 93005; 93010; 94640; 96361; 96365; 96366; 96375; 99283; 99291; J1650; J2405; J3480; J7050; J7613

== ENCOUNTER 2020-11-17 19:42 | Emergency (ER) | payer OTHER, MEDICAID, SELFPAY ==
[2019-03-09 00:15] VITALS: BMI 21.9
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
[2020-11-17 19:59] VITALS: BP 145/84; PULSE 96; RESP 19; TEMP 37.1; O2SAT 98; BMI 26.6
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
[2020-11-17] MEDS: MORPHINE 4 MG/ML INJ IM (20:15)
[2020-11-17] MEDS: TET,DIPH,PERTUSS(ACELL),VAC/PF 0.5 ML SYRINGE IM (20:15)
[2020-11-17 20:46] VITALS: BP 135/75; PULSE 88; RESP 20; O2SAT 97
== END 2020-11-17 20:48 | disposition home or self-care (01) ==
PROVIDERS: Emergency Provider Emergency Medicine
DX: S71.132A Puncture wound without foreign body, left thigh, initial encounter (principal); W26.8XXA Contact with other sharp object(s), not elsewhere classified, initial encounter; Z23 Encounter for immunization
CPT/HCPCS: 73552; 90471; 96372; 99283; 99284; 90715; J2270

== ENCOUNTER → 2022-07-04 15:01 | Outpatient (CLI) | payer OTHER, MEDICAID, SELFPAY ==
[2019-03-09 00:15] VITALS: BMI 21.9
[2022-07-04 15:31] LABS: Add Manual Diff / Slide Review NO; Basophils Absolute Auto 0 /uL (0-100); Eosinophils Absolute Auto 100 /uL (0-450); Eosinophils Percent Auto 1.4 % (2-4); Hematocrit 39.8 % (41-53); Hemoglobin 13.8 g/dL (13.5-17.5); Lymphocytes Absolute Auto 800 /uL (1100-4500); Lymphocytes Percent Auto 18.3 % (25-40); Mean Corpuscular HGB Conc 34.6 % (30-36); Mean Corpuscular Hemoglobin 33.6 PG (26-34); Mean Corpuscular Volume 97.2 fL (80-100); Monocytes Absolute Auto 300 /uL (0-900); Monocytes Percent Auto 7.2 % (3-14); Neutrophils Absolute Auto 3300 /uL (1500-7000); Neutrophils Percent Auto 72.1 % (50-75); Platelet Count 86 X10^3/uL (150-400); Red Cell Distribution Width 14.6 % (11.6-14.8); White Blood Cell Count 4.6 X10^3/uL (4.5-11.0)
[2022-07-04 16:07] LABS: Erythrocyte Sedimentation Rate 17 MM/HR (0-15)
[2022-07-04 16:08] LABS: Iron 169 ug/dL (49-181)
[2022-07-04 16:10] LABS: Alanine Aminotransferase 71 IU/L (<50); Albumin 3.7 g/dL (3.5-5.0); Albumin Globulin Ratio 1.2 (1.0-2.8); Alkaline Phosphatase 240 U/L (38-126); Aspartate Aminotransferase 66 IU/L (17-59); BUN Creatinine Ratio 51.2 (6-22); Bilirubin Total 0.6 mg/dL (0.2-1.3); Blood Urea Nitrogen 22 mg/dL (9-20); C-Reactive Protein Quant 0.6 mg/dL (<1.0); Calcium 8.8 mg/dL (8.4-10.2); Carbon Dioxide 28 mmol/L (22-32); Chloride 101 mmol/L (98-107); Cholesterol 192 mg/dL (140-199); Estimated Glomerular Filt Rate > 60 mL/min (>60); Globulin 3.2 g/dL (1.7-4.1); Glucose 204 mg/dL (70-100); HEMOLYSIS < 15 (0-50); Potassium 4.2 mmol/L (3.4-5.1); Sodium 133 mmol/L (137-145); Total Protein 6.9 g/dL (6.3-8.2); Triglycerides 91 mg/dL (35-150)
[2022-07-04 16:24] LABS: HDL Cholesterol 116 mg/dL (40-60); LDL Cholesterol Calculated 58 mg/dL (<100)
[2022-07-04 18:55] LABS: Microalbumi Creatinin Ratio Ur 6.9 ug/mg CR (<30); Microalbumin Urine Random 1.7 mg/dL (0-1.6)
[2022-07-06 07:47] LABS: Labcorp Hemoglobin (Hb) A1c 10.8 % (4.8-5.6)
== END ==
PROVIDERS: PCP Family Medicine; Referring Provider Family Medicine; Visit Provider Family Medicine
DX: M06.9 Rheumatoid arthritis, unspecified (principal); E13.9 Other specified diabetes mellitus without complications; E83.110 Hereditary hemochromatosis
CPT/HCPCS: 36415; 80053; 80061; 82043; 82570; 83036; 83540; 85025; 85651; 86140

== ENCOUNTER 2022-11-06 16:01 | Inpatient (IN) | payer OTHER, MEDICAID, SELFPAY ==
[2019-03-09 00:15] VITALS: BMI 21.9
[2022-11-06] VITALS (32 sets, daily range): BP systolic 106–156; BP diastolic 57–98; PULSE 96–114; RESP 12–20; TEMP 36.6–37.1; O2SAT 92–100; BMI 20.5; BMI 20.4
--- NOTE | 2022-11-06 16:39 | DI.RAD.S_ITS ---
PROCEDURE: XR CHEST 1V INDICATIONS: Flu like symptoms TECHNIQUE: One view of the chest was acquired. COMPARISON: [facility], CR, XR CHEST 1V, 03/08/2019, 19:59. FINDINGS: Surgical changes and devices: None. Lungs and pleura: Lungs are clear. No pleural effusions or pneumothorax. Mediastinum: Mediastinal contours appear normal. Heart size is normal. Bones and chest wall: No suspicious bony lesions. Overlying soft tissues appear unremarkable. IMPRESSION: No acute cardiopulmonary abnormality. Dictated by: Ion Garcia M.D. on 11/06/2022 at 17:12 Approved by: Ion Garcia M.D. on 11/06/2022 at 17:13
[2022-11-06] MEDS: SODIUM CHLORIDE 0.9% 1,000 ML 1000 ML IV (17:00)
--- NOTE | 2022-11-06 17:00 | PC.NURSE ---
Pt reports vomiting coffee ground emesis this morning and black stools off and on for awhile. BG 682, physician aware. Daughter at the bedside.
--- NOTE | 2022-11-06 17:05 | ED_ITS ---
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 (24-29) mmol/L VBG O2 Saturation (70-75) % VBG Base Excess (0-4) mmol/L FiO2 Sodium (137-145) mmol/L Potassium (3.4-5.1) mmol/L Chloride (98-107) mmol/L Carbon Dioxide (22-32) mmol/L BUN (9-20) mg/dL Creatinine (0.66-1.25) mg/dL Estimated GFR (>60) mL/min BUN/Creatinine Ratio (6-22) Glucose (70-100) mg/dL Lactate (0.7-2.1) mmol/L Calcium (8.4-10.2) mg/dL Total Bilirubin (0.2-1.3) mg/dL AST (17-59) IU/L ALT (<50) IU/L Alkaline Phosphatase (38-126) U/L Ammonia (9-30) umol/L Total Protein (6.3-8.2) g/dL Albumin (3.5-5.0) g/dL Globulin (1.7-4.1) g/dL Albumin/Globulin Ratio (1.0-2.8) Lipase (23-300) U/L Urine Color Yellow Urine Appearance Clear Urine pH 5.5 (4.5-8.0) Ur Specific [place] <=1.005 (1.000-1.035) Urine Protein Negative (Negative) Urine Glucose (UA) 3+ H (Negative) g/dL Urine Ketones 2+ H (NEGATIVE) Urine Occult Blood Negative (Negative) Urine Nitrate Negative (Negative) Urine Bilirubin Negative (NEGATIVE) Urine Urobilinogen 0.2 (0.2) E.U./dL Ur Leukocyte Esterase Negative (NEGATIVE) Urine RBC 0-1/hpf (0-5/HPF) Urine WBC None seen (0-5/HPF) Ur Squamous Epith Cells None seen (0-5/HPF) Urine Bacteria None seen (None) Ur Culture Indicated? Cult not indicated Ketones (<0.27) mmol/L A.calcoaceticus-baumannii cmplx PCR (Not Detect) Bacteroides fragilis (Not Detect) Nat albicans (PCR) (Not Detect) Nat auris (PCR) (Not Detect) C. glabrata (PCR) (Not Detect) C. krusei (PCR) (Not Detect) C. parapsilosis (PCR) (Not Detect) C. tropicalis (PCR) (Not Detect) C. neoform/gattii (PCR) (Not Detect) Enterobacterales (PCR) (Not Detect) E. cloacae complex PCR (Not Detect) Enterococc faecalis PCR (Not Detect) Enterococc faecium PCR (Not Detect) E. coli (PCR) (Not Detect) H. influenzae (PCR) (Not Detect) Klebsiella aerogenes (PCR) (Not Detect) Klebsiella oxytoca PCR (Not Detect) Klebsiella pneumoniae (Not Detect) List. monocytogenes PCR (Not Detect) N. meningitidis (PCR) (Not Detect) Proteus species (PCR) (Not Detect) Salmonella spp. (PCR) (Not Detect) Serratia marcescens PCR (Not Detect) Staphylococcus sp PCR (Not Detect) Staph aureus (PCR) (Not Detect) mcr-1 Colistin Res Gene PCR (Not Detect) Staph epidermidis (PCR) (Not Detect) Staph lugdunensis PCR (Not Detect) S. maltophilia (PCR) (Not Detect) Streptococcus sp PCR (Not Detect) Group A Strep (PCR) (Not Detect) Strep agalactiae (PCR) (Not Detect) Strep pneumoniae (PCR) (Not Detect) P. aeruginosa (PCR) (Not Detect) blaIMP Car res Gene PCR (Not Detect) KPC-Carbap Res Gene PCR (Not Detect) blaNDM Car Res Gene PCR (Not Detect) OXA-48 Carbapenem Resis Gene (PCR) (Not Detect) blaVIM Car Res Gene PCR (Not Detect) CTX-M Gene Resistance (PCR) (Not Detect) Blood Type O Positive Antibody Screen Negative 11/06/22 11/06/22 Range/Units 17:33 20:53 WBC (4.5-11.0) X10^3/uL RBC (4.5-5.9) X10^6/uL Hgb (13.5-17.5) g/dL Hct (41-53) % MCV (80-100) fL MCH (26-34) PG MCHC (30-36) % RDW (11.6-14.8) % Plt Count (150-400) X10^3/uL Neut % (Auto) (50-75) % Lymph % (Auto) (25-40) % Davison % (Auto) (3-14) % Eos % (Auto) (2-4) % Baso % (Auto) (0-2) % Neut # (Auto) (9595-4134) /uL Lymph # (Auto) (7630-3506) /uL Davison # (Auto) (0-900) /uL Eos # (Auto) (0-450) /uL Baso # (Auto) (0-100) /uL PT (10.1-12.7) SECONDS INR (0.9-1.3) APTT (26-36) SECONDS VBG pH 7.40 (7.33-7.43) VBG pCO2 36.1 L (45-50) mmHg VBG pO2 42 (35-45) mmHg VBG HCO3 22 L (24-28) mmol/L VBG Total CO2 23 L (24-29) mmol/L VBG O2 Saturation 78 H (70-75) % VBG Base Excess -3.0 L (0-4) mmol/L FiO2 21 Sodium 128 L (137-145) mmol/L Potassium 5.3 H (3.4-5.1) mmol/L Chloride 96 L (98-107) mmol/L Carbon Dioxide 16 L (22-32) mmol/L BUN 24 H (9-20) mg/dL Creatinine 0.46 L (0.66-1.25) mg/dL Estimated GFR > 60 (>60) mL/min BUN/Creatinine Ratio 52.2 H (6-22) Glucose 476 H D (70-100) mg/dL Lactate (0.7-2.1) mmol/L Calcium 8.2 L (8.4-10.2) mg/dL Total Bilirubin 2.3 H (0.2-1.3) mg/dL AST 295 H (17-59) IU/L ALT 129 H (<50) IU/L Alkaline Phosphatase 271 H (38-126) U/L Ammonia (9-30) umol/L Total Protein 6.0 L (6.3-8.2) g/dL Albumin 3.4 L (3.5-5.0) g/dL Globulin 2.6 (1.7-4.1) g/dL Albumin/Globulin Ratio 1.3 (1.0-2.8) Lipase (23-300) U/L Urine Color Urine Appearance Urine pH (4.5-8.0) Ur Specific [place] (1.000-1.035) Urine Protein (Negative) Urine Glucose (UA) (Negative) g/dL Urine Ketones (NEGATIVE) Urine Occult Blood (Negative) Urine Nitrate (Negative) Urine Bilirubin (NEGATIVE) Urine Urobilinogen (0.2) E.U./dL Ur Leukocyte Esterase (NEGATIVE) Urine RBC (0-5/HPF) Urine WBC (0-5/HPF) Ur Squamous Epith Cells (0-5/HPF) Urine Bacteria (None) Ur Culture Indicated? Ketones (<0.27) mmol/L A.calcoaceticus-baumannii cmplx PCR (Not Detect) Bacteroides fragilis (Not Detect) Nat albicans (PCR) (Not Detect) Nat auris (PCR) (Not Detect) C. glabrata (PCR) (Not Detect) C. krusei (PCR) (Not Detect) C. parapsilosis (PCR) (Not Detect) C. tropicalis (PCR) (Not Detect) C. neoform/gattii (PCR) (Not Detect) Enterobacterales (PCR) (Not Detect) E. cloacae complex PCR (Not Detect) Enterococc faecalis PCR (Not Detect) Enterococc faecium PCR (Not Detect) E. coli (PCR) (Not Detect) H. influenzae (PCR) (Not Detect) Klebsiella aerogenes (PCR) (Not Detect) Klebsiella oxytoca PCR (Not Detect) Klebsiella pneumoniae (Not Detect) List. monocytogenes PCR (Not Detect) N. meningitidis (PCR) (Not Detect) Proteus species (PCR) (Not Detect) Salmonella spp. (PCR) (Not Detect) Serratia marcescens PCR (Not Detect) Staphylococcus sp PCR (Not Detect) Staph aureus (PCR) (Not Detect) mcr-1 Colistin Res Gene PCR (Not Detect) Staph epidermidis (PCR) (Not Detect) Staph lugdunensis PCR (Not Detect) S. maltophilia (PCR) (Not Detect) Streptococcus sp PCR (Not Detect) Group A Strep (PCR) (Not Detect) Strep agalactiae (PCR) (Not Detect) Strep pneumoniae (PCR) (Not Detect) P. aeruginosa (PCR) (Not Detect) blaIMP Car res Gene PCR (Not Detect) KPC-Carbap Res Gene PCR (Not Detect) blaNDM Car Res Gene PCR (Not Detect) OXA-48 Carbapenem Resis Gene (PCR) (Not Detect) blaVIM Car Res Gene PCR (Not Detect) CTX-M Gene Resistance (PCR) (Not Detect) Blood Type Antibody Screen Imaging Data Chest x-ray: Radiologist's Impression: Close Chest X-Ray (Signed) Ion Garcia - 11/06/22 Fem[facility] X-Ray (Signed) Juan C Guzamn - 11/17/20 Telemetry Strips 03/08/19 Telemetry Strips 03/08/19 Telemetry Strips 03/08/19 Chest X-Ray (Signed) Jorge A Mullen - 03/08/[address] [address] XRay Report Signed Patient: Tutu Looney Jr MR#: [id number] : 1970 Acct:[id number] Age/Sex: 52 / M Date of Service: 11/06/22 Loc: ED Accession Number: [id number] ?? Procedure: XR chest 1V Ordering Provider: Isadora Costa D.O. PROCEDURE:? XR CHEST 1V ? INDICATIONS:? Flu like symptoms ? TECHNIQUE:? One view of the chest was acquired.? ? COMPARISON:? [facility], , XR CHEST 1V, 03/08/2019, 19:59. ? FINDINGS:? ? Surgical changes and devices:? None.? ? Lungs and pleura:? Lungs are clear.? No pleural effusions or pneumothorax.? ? Mediastinum:? Mediastinal contours appear normal.? Heart size is normal.? ? Bones and chest wall:? No suspicious bony lesions.? Overlying soft tissues appear unremarkable.? ? IMPRESSION:? No acute cardiopulmonary abnormality. ? ? ? Dictated by: Ion Garcia M.D. on 11/06/2022 at 17:12 ? ? Approved by: Ion Garcia M.D. on 11/06/2022 at 17:13?? ECG Data Attestation: I personally reviewed and interpreted this ECG as follows: Prior ECG tracings: available for review Interpretation: Sinus tachycardia rate of 106 DC 164 [address]TC [address] No acute [address] elevation depression. No acute ST changes appreciated. MDM Narrative Medical decision making narrative: This is a 52-year-old male reported history vomiting with abdominal pain right u pper quadrant insulin-dependent diabetes patient is using insulin but sounds like not checking his glucose is regularly. Patient's glucose is 682, his sodium is 132 when corrected, anion gap is 21 with a corrected sodium, he is 4.35 ketones. His bicarb 23, his pH is 7.4 with a on VBG so patient does not appear to be in DKA but does be your to be hyperglycemic, abdominal pain and vomiting could be secondary to his hyperglycemia he does report some intermittent bloody emesis and history of varices, hemoglobin appears stable at 12.8 compared to June of 2022 which was 13.8, patient's white count 5.9 he has a macrocytosis with platelets of 65. Platelets appear fairly consistent he is ranged between the 60s and 90s since February of 2019. Patient's LFTs are also elevated at 1.7 up from 0.6 with 300, 04/21/2071. Patient had abdominal ultrasound and CT abdomen pelvis obtained is currently pending. Ultrasound shows trace ascites, CBD less okay but not completely visualized liver appears cirrhotic per tech. Patient received 2 L of fluids with repeat Accu-Chek. Patient signed out to Dr. Keyes while awaiting imaging. No vomiting in the department. Dr. Keyes-patient signed out to me by Dr. Costa. Evaluated patient myself. He continues to be nauseous he is not actually been vomiting in the ED. He does have pretty significant epigastric pain on exam. Initially was hyperglycemic with ketones he did have anion gap of 21 but a normal pH. Upon repeat blood work bicarb is now 16 and was previously 23. Concern worsening possible DKA. Insulin drip is ordered. CT does show possible renal mass and liver masses. He is having some epigastric and right upper quadrant pain he is given in Dilaudid for that. Dr. Rudolph accepts patient <Hawa Keyes DO - Last Filed: 11/07/22 03:57> Lab Data Labs: Lab Results 11/06/22 11/06/22 11/06/22 Range/Units 16:50 17:01 17:03 WBC 5.9 (4.5-11.0) X10^3/uL RBC 3.67 L (4.5-5.9) X10^6/uL Hgb 12.8 L (13.5-17.5) g/dL Hct 37.2 L (41-53) % MCV 101.5 H (80-100) fL MCH 35.0 H (26-34) PG MCHC 34.5 (30-36) % RDW 15.6 H (11.6-14.8) % Plt Count 65 L (150-400) X10^3/uL Neut % (Auto) 85.2 H (50-75) % Lymph % (Auto) 5.8 L (25-40) % Davison % (Auto) 8.4 (3-14) % Eos % (Auto) 0.1 L (2-4) % Baso % (Auto) 0.5 (0-2) % Neut # (Auto) 5000 (1641-3596) /uL Lymph # (Auto) 300 L (0199-6994) /uL Davison # (Auto) 500 (0-900) /uL Eos # (Auto) 0 (0-450) /uL Baso # (Auto) 0 (0-100) /uL PT (10.1-12.7) SECONDS INR (0.9-1.3) APTT (26-36) SECONDS VBG pH (7.33-7.43) VBG pCO2 (45-50) mmHg VBG pO2 (35-45) mmHg VBG HCO3 (24-28) mmol/L VBG Total CO2 (24-29) mmol/L VBG O2 Saturation (70-75) % VBG Base Excess (0-4) mmol/L FiO2 Sodium (137-145) mmol/L Potassium (3.4-5.1) mmol/L Chloride (98-107) mmol/L Carbon Dioxide (22-32) mmol/L BUN (9-20) mg/dL Creatinine (0.66-1.25) mg/dL Estimated GFR (>60) mL/min BUN/Creatinine Ratio (6-22) Glucose (70-100) mg/dL Lactate (0.7-2.1) mmol/L Calcium (8.4-10.2) mg/dL Total Bilirubin (0.2-1.3) mg/dL AST (17-59) IU/L ALT (<50) IU/L Alkaline Phosphatase (38-126) U/L Ammonia 22 (9-30) umol/L Total Protein (6.3-8.2) g/dL Albumin (3.5-5.0) g/dL Globulin (1.7-4.1) g/dL Albumin/Globulin Ratio (1.0-2.8) Lipase (23-300) U/L Urine Color Urine Appearance Urine pH (4.5-8.0) Ur Specific [place] (1.000-1.035) Urine Protein (Negative) Urine Glucose (UA) (Negative) g/dL Urine Ketones (NEGATIVE) Urine Occult Blood (Negative) Urine Nitrate (Negative) Urine Bilirubin (NEGATIVE) Urine Urobilinogen (0.2) E.U./dL Ur Leukocyte Esterase (NEGATIVE) Urine RBC (0-5/HPF) Urine WBC (0-5/HPF) Ur Squamous Epith Cells (0-5/HPF) Urine Bacteria (None) Ur Culture Indicated? Ketones (<0.27) mmol/L A.calcoaceticus-baumannii cmplx PCR Not detected (Not Detect) Bacteroides fragilis Not detected (Not Detect) Nat albicans (PCR) Not detected (Not Detect) Nat auris (PCR) Not detected (Not Detect) C. glabrata (PCR) Not detected (Not Detect) C. krusei (PCR) Not detected (Not Detect) C. parapsilosis (PCR) Not detected (Not Detect) C. tropicalis (PCR) Not detected (Not Detect) C. neoform/gattii (PCR) Not detected (Not Detect) Enterobacterales (PCR) Detected H (Not Detect) E. cloacae complex PCR Not detected (Not Detect) Enterococc faecalis PCR Not detected (Not Detect) Enterococc faecium PCR Not detected (Not Detect) E. coli (PCR) Not detected (Not Detect) H. influenzae (PCR) Not detected (Not Detect) Klebsiella aerogenes (PCR) Not detected (Not Detect) Klebsiella oxytoca PCR Not detected (Not Detect) Klebsiella pneumoniae Detected H (Not Detect) List. monocytogenes PCR Not detected (Not Detect) N. meningitidis (PCR) Not detected (Not Detect) Proteus species (PCR) Not detected (Not Detect) Salmonella spp. (PCR) Not detected (Not Detect) Serratia marcescens PCR Not detected (Not Detect) Staphylococcus sp PCR Not detected (Not Detect) Staph aureus (PCR) Not detected (Not Detect) mcr-1 Colistin Res Gene PCR Not detected (Not Detect) Staph epidermidis (PCR) Not detected (Not Detect) Staph lugdunensis PCR Not detected (Not Detect) S. maltophilia (PCR) Not detected (Not Detect) Streptococcus sp PCR Not detected (Not Detect) Group A Strep (PCR) Not detected (Not Detect) Strep agalactiae (PCR) Not detected (Not Detect) Strep pneumoniae (PCR) Not detected (Not Detect) P. aeruginosa (PCR) Not detected (Not Detect) blaIMP Car res Gene PCR Not detected (Not Detect) KPC-Carbap Res Gene PCR Not detected (Not Detect) blaNDM Car Res Gene PCR Not detected (Not Detect) OXA-48 Carbapenem Resis Gene (PCR) Not detected (Not Detect) blaVIM Car Res Gene PCR Not detected (Not Detect) CTX-M Gene Resistance (PCR) Not detected (Not Detect) Blood Type Antibody Screen 11/06/22 11/06/22 11/06/22 Range/Units 17:03 17:03 17:03 WBC (4.5-11.0) X10^3/uL RBC (4.5-5.9) X10^6/uL Hgb (13.5-17.5) g/dL Hct (41-53) % MCV (80-100) fL MCH (26-34) PG MCHC (30-36) % RDW (11.6-14.8) % Plt Count (150-400) X10^3/uL Neut % (Auto) (50-75) % Lymph % (Auto) (25-40) % [place] % (Auto) (3-14) % Eos % (Auto) (2-4) % Baso % (Auto) (0-2) % Neut # (Auto) (8578-5947) /uL Lymph # (Auto) (0422-4148) /uL [place] # (Auto) (0-900) /uL Eos # (Auto) (0-450) /uL Baso # (Auto) (0-100) /uL PT (10.1-12.7) SECONDS INR (0.9-1.3) APTT (26-36) SECONDS VBG pH (7.33-7.43) VBG pCO2 (45-50) mmHg VBG pO2 (35-45) mmHg VBG HCO3 (24-28) mmol/L VBG Total CO2 (24-29) mmol/L VBG O2 Saturation (70-75) % VBG Base Excess (0-4) mmol/L FiO2 Sodium 123 L (137-145) mmol/L Potassium 5.7 H (3.4-5.1) mmol/L Chloride 88 L (98-107) mmol/L Carbon Dioxide 23 (22-32) mmol/L BUN 28 H (9-20) mg/dL Creatinine 0.52 L (0.66-1.25) mg/dL Estimated GFR > 60 (>60) mL/min BUN/Creatinine Ratio 53.8 H (6-22) Glucose 682 H* (70-100) mg/dL Lactate 1.3 (0.7-2.1) mmol/L Calcium 8.8 (8.4-10.2) mg/dL Total Bilirubin 1.7 H (0.2-1.3) mg/dL AST 313 H (17-59) IU/L ALT 127 H (<50) IU/L Alkaline Phosphatase 372 H (38-126) U/L Ammonia (9-30) umol/L Total Protein 6.5 (6.3-8.2) g/dL Albumin 3.9 (3.5-5.0) g/dL Globulin 2.6 (1.7-4.1) g/dL Albumin/Globulin Ratio 1.5 (1.0-2.8) Lipase 106 (23-300) U/L Urine Color Urine Appearance Urine pH (4.5-8.0) Ur Specific [place] (1.000-1.035) Urine Protein (Negative) Urine Glucose (UA) (Negative) g/dL Urine Ketones (NEGATIVE) Urine Occult Blood (Negative) Urine Nitrate (Negative) Urine Bilirubin (NEGATIVE) Urine Urobilinogen (0.2) E.U./dL Ur Leukocyte Esterase (NEGATIVE) Urine RBC (0-5/HPF) Urine WBC (0-5/HPF) Ur Squamous Epith Cells (0-5/HPF) Urine Bacteria (None) Ur Culture Indicated? Ketones 4.35 H (<0.27) mmol/L A.calcoaceticus-baumannii cmplx PCR (Not Detect) Bacteroides fragilis (Not Detect) Nat albicans (PCR) (Not Detect) Nat auris (PCR) (Not Detect) C. glabrata (PCR) (Not Detect) C. krusei (PCR) (Not Detect) C. parapsilosis (PCR) (Not Detect) C. tropicalis (PCR) (Not Detect) C. neoform/gattii (PCR) (Not Detect) Enterobacterales (PCR) (Not Detect) E. cloacae complex PCR (Not Detect) Enterococc faecalis PCR (Not Detect) Enterococc faecium PCR (Not Detect) E. coli (PCR) (Not Detect) H. influenzae (PCR) (Not Detect) Klebsiella aerogenes (PCR) (Not Detect) Klebsiella oxytoca PCR (Not Detect) Klebsiella pneumoniae (Not Detect) List. monocytogenes PCR (Not Detect) N. meningitidis (PCR) (Not Detect) Proteus species (PCR) (Not Detect) Salmonella spp. (PCR) (Not Detect) Serratia marcescens PCR (Not Detect) Staphylococcus sp PCR (Not Detect) Staph aureus (PCR) (Not Detect) mcr-1 Colistin Res Gene PCR (Not Detect) Staph epidermidis (PCR) (Not Detect) Staph lugdunensis PCR (Not Detect) S. maltophilia (PCR) (Not Detect) Streptococcus sp PCR (Not Detect) Group A Strep (PCR) (Not Detect) Strep agalactiae (PCR) (Not Detect) Strep pneumoniae (PCR) (Not Detect) P. aeruginosa (PCR) (Not Detect) blaIMP Car res Gene PCR (Not Detect) KPC-Carbap Res Gene PCR (Not Detect) blaNDM Car Res Gene PCR (Not Detect) OXA-48 Carbapenem Resis Gene (PCR) (Not Detect) blaVIM Car Res Gene PCR (Not Detect) CTX-M Gene Resistance (PCR) (Not Detect) Blood Type Antibody Screen 11/06/22 11/06/22 11/06/22 Range/Units 17:03 17:11 17:23 WBC (4.5-11.0) X10^3/uL RBC (4.5-5.9) X10^6/uL Hgb (13.5-17.5) g/dL Hct (41-53) % MCV (80-100) fL MCH (26-34) PG MCHC (30-36) % RDW (11.6-14.8) % Plt Count (150-400) X10^3/uL Neut % (Auto) (50-75) % Lymph % (Auto) (25-40) % [place] % (Auto) (3-14) % Eos % (Auto) (2-4) % Baso % (Auto) (0-2) % Neut # (Auto) (4598-6727) /uL Lymph # (Auto) (1511-3414) /uL [place] # (Auto) (0-900) /uL Eos # (Auto) (0-450) /uL Baso # (Auto) (0-100) /uL PT 12.5 (10.1-12.7) SECONDS INR 1.1 (0.9-1.3) APTT 24 L (26-36) SECONDS VBG pH (7.33-7.43) VBG pCO2 (45-50) mmHg VBG pO2 (35-45) mmHg VBG HCO3 (24-28) mmol/L VBG Total CO2 (24-29) mmol/L VBG O2 Saturation (70-75) % VBG Base Excess (0-4) mmol/L FiO2 Sodium (137-145) mmol/L Potassium (3.4-5.1) mmol/L Chloride (98-107) mmol/L Carbon Dioxide (22-32) mmol/L BUN (9-20) mg/dL Creatinine (0.66-1.25) mg/dL Estimated GFR (>60) mL/min BUN/Creatinine Ratio (6-22) Glucose (70-100) mg/dL Lactate (0.7-2.1) mmol/L Calcium (8.4-10.2) mg/dL Total Bilirubin (0.2-1.3) mg/dL AST (17-59) IU/L ALT (<50) IU/L Alkaline Phosphatase (38-126) U/L Ammonia (9-30) umol/L Total Protein (6.3-8.2) g/dL Albumin (3.5-5.0) g/dL Globulin (1.7-4.1) g/dL Albumin/Globulin Ratio (1.0-2.8) Lipase (23-300) U/L Urine Color Yellow Urine Appearance Clear Urine pH 5.5 (4.5-8.0) Ur Specific [place] <=1.005 (1.000-1.035) Urine Protein Negative (Negative) Urine Glucose (UA) 3+ H (Negative) g/dL Urine Ketones 2+ H (NEGATIVE) Urine Occult Blood Negative (Negative) Urine Nitrate Negative (Negative) Urine Bilirubin Negative (NEGATIVE) Urine Urobilinogen 0.2 (0.2) E.U./dL Ur Leukocyte Esterase Negative (NEGATIVE) Urine RBC 0-1/hpf (0-5/HPF) Urine WBC None seen (0-5/HPF) Ur Squamous Epith Cells None seen (0-5/HPF) Urine Bacteria None seen (None) Ur Culture Indicated? Cult not indicated Ketones (<0.27) mmol/L A.calcoaceticus-baumannii cmplx PCR (Not Detect) Bacteroides fragilis (Not Detect) Nat albicans (PCR) (Not Detect) Nat auris (PCR) (Not Detect) C. glabrata (PCR) (Not Detect) C. krusei (PCR) (Not Detect) C. parapsilosis (PCR) (Not Detect) C. tropicalis (PCR) (Not Detect) C. neoform/gattii (PCR) (Not Detect) Enterobacterales (PCR) (Not Detect) E. cloacae complex PCR (Not Detect) Enterococc faecalis PCR (Not Detect) Enterococc faecium PCR (Not Detect) E. coli (PCR) (Not Detect) H. influenzae (PCR) (Not Detect) Klebsiella aerogenes (PCR) (Not Detect) Klebsiella oxytoca PCR (Not Detect) Klebsiella pneumoniae (Not Detect) List. monocytogenes PCR (Not Detect) N. meningitidis (PCR) (Not Detect) Proteus species (PCR) (Not Detect) Salmonella spp. (PCR) (Not Detect) Serratia marcescens PCR (Not Detect) Staphylococcus sp PCR (Not Detect) Staph aureus (PCR) (Not Detect) mcr-1 Colistin Res Gene PCR (Not Detect) Staph epidermidis (PCR) (Not Detect) Staph lugdunensis PCR (Not Detect) S. maltophilia (PCR) (Not Detect) Streptococcus sp PCR (Not Detect) Group A Strep (PCR) (Not Detect) Strep agalactiae (PCR) (Not Detect) Strep pneumoniae (PCR) (Not Detect) P. aeruginosa (PCR) (Not Detect) blaIMP Car res Gene PCR (Not Detect) KPC-Carbap Res Gene PCR (Not Detect) blaNDM Car Res Gene PCR (Not Detect) OXA-48 Carbapenem Resis Gene (PCR) (Not Detect) blaVIM Car Res Gene PCR (Not Detect) CTX-M Gene Resistance (PCR) (Not Detect) Blood Type O Positive Antibody Screen Negative 11/06/22 11/06/22 Range/Units 17:33 20:53 WBC (4.5-11.0) X10^3/uL RBC (4.5-5.9) X10^6/uL Hgb (13.5-17.5) g/dL Hct (41-53) % MCV (80-100) fL MCH (26-34) PG MCHC (30-36) % RDW (11.6-14.8) % Plt Count (150-400) X10^3/uL Neut % (Auto) (50-75) % Lymph % (Auto) (25-40) % [place] % (Auto) (3-14) % Eos % (Auto) (2-4) % Baso % (Auto) (0-2) % Neut # (Auto) (1457-8970) /uL Lymph # (Auto) (5313-8863) /uL [place] # (Auto) (0-900) /uL Eos # (Auto) (0-450) /uL Baso # (Auto) (0-100) /uL PT (10.1-12.7) SECONDS INR (0.9-1.3) APTT (26-36) SECONDS VBG pH 7.40 (7.33-7.43) VBG pCO2 36.1 L (45-50) mmHg VBG pO2 42 (35-45) mmHg VBG HCO3 22 L (24-28) mmol/L VBG Total CO2 23 L (24-29) mmol/L VBG O2 Saturation 78 H (70-75) % VBG Base Excess -3.0 L (0-4) mmol/L FiO2 21 Sodium 128 L (137-145) mmol/L Potassium 5.3 H (3.4-5.1) mmol/L Chloride 96 L (98-107) mmol/L Carbon Dioxide 16 L (22-32) mmol/L BUN 24 H (9-20) mg/dL Creatinine 0.46 L (0.66-1.25) mg/dL Estimated GFR > 60 (>60) mL/min BUN/Creatinine Ratio 52.2 H (6-22) Glucose 476 H D (70-100) mg/dL Lactate (0.7-2.1) mmol/L Calcium 8.2 L (8.4-10.2) mg/dL Total Bilirubin 2.3 H (0.2-1.3) mg/dL AST 295 H (17-59) IU/L ALT 129 H (<50) IU/L Alkaline Phosphatase 271 H (38-126) U/L Ammonia (9-30) umol/L Total Protein 6.0 L (6.3-8.2) g/dL Albumin 3.4 L (3.5-5.0) g/dL Globulin 2.6 (1.7-4.1) g/dL Albumin/Globulin Ratio 1.3 (1.0-2.8) Lipase (23-300) U/L Urine Color Urine Appearance Urine pH (4.5-8.0) Ur Specific [place] (1.000-1.035) Urine Protein (Negative) Urine Glucose (UA) (Negative) g/dL Urine Ketones (NEGATIVE) Urine Occult Blood (Negative) Urine Nitrate (Negative) Urine Bilirubin (NEGATIVE) Urine Urobilinogen (0.2) E.U./dL Ur Leukocyte Esterase (NEGATIVE) Urine RBC (0-5/HPF) Urine WBC (0-5/HPF) Ur Squamous Epith Cells (0-5/HPF) Urine Bacteria (None) Ur Culture Indicated? Ketones (<0.27) mmol/L A.calcoaceticus-baumannii cmplx PCR (Not Detect) Bacteroides fragilis (Not Detect) Nat albicans (PCR) (Not Detect) Nat auris (PCR) (Not Detect) C. glabrata (PCR) (Not Detect) C. krusei (PCR) (Not Detect) C. parapsilosis (PCR) (Not Detect) C. tropicalis (PCR) (Not Detect) C. neoform/gattii (PCR) (Not Detect) Enterobacterales (PCR) (Not Detect) E. cloacae complex PCR (Not Detect) Enterococc faecalis PCR (Not Detect) Enterococc faecium PCR (Not Detect) E. coli (PCR) (Not Detect) H. influenzae (PCR) (Not Detect) Klebsiella aerogenes (PCR) (Not Detect) Klebsiella oxytoca PCR (Not Detect) Klebsiella pneumoniae (Not Detect) List. monocytogenes PCR (Not Detect) N. meningitidis (PCR) (Not Detect) Proteus species (PCR) (Not Detect) Salmonella spp. (PCR) (Not Detect) Serratia marcescens PCR (Not Detect) Staphylococcus sp PCR (Not Detect) Staph aureus (PCR) (Not Detect) mcr-1 Colistin Res Gene PCR (Not Detect) Staph epidermidis (PCR) (Not Detect) Staph lugdunensis PCR (Not Detect) S. maltophilia (PCR) (Not Detect) Streptococcus sp PCR (Not Detect) Group A Strep (PCR) (Not Detect) Strep agalactiae (PCR) (Not Detect) Strep pneumoniae (PCR) (Not Detect) P. aeruginosa (PCR) (Not Detect) blaIMP Car res Gene PCR (Not Detect) KPC-Carbap Res Gene PCR (Not Detect) blaNDM Car Res Gene PCR (Not Detect) OXA-48 Carbapenem Resis Gene (PCR) (Not Detect) blaVIM Car Res Gene PCR (Not Detect) CTX-M Gene Resistance (PCR) (Not Detect) Blood Type Antibody Screen MDM Narrative Medical decision making narrative: This is a 52-year-old male reported history vomiting with abdominal pain right upper quadrant insulin-dependent diabetes patient is using insulin but sounds like not checking his glucose is regularly. Patient's glucose is 682, his sodium is 132 when corrected, anion gap is 21 with a corrected sodium, he is 4.35 ketones. His bicarb 23, his pH is 7.4 with a on VBG so patient does not appear to be in DKA but does be your to be hyperglycemic, abdominal pain and vomiting could be secondary to his hyperglycemia he does report some intermittent bloody emesis and history of varices, hemoglobin appears stable at 12.8 compared to June of 2022 which was 13.8, patient's white count 5.9 he has a macrocytosis with platelets of 65. Platelets appear fairly consistent he is ranged between the 60s and 90s since February of 2019. Patient's LFTs are also elevated at 1.7 up from 0.6 with 300, 04/21/2071. Patient had abdominal ultrasound and CT abdomen pelvis obtained. Ultrasound shows trace ascites, CBD less okay but not completely visualized liver appears cirrhotic per tech. Patient received 2 L of fluids with repeat Accu-Chek, Dr. Keyes-patient signed out to me by Dr. Costa. Evaluated patient myself. He continues to be nauseous he is not actually been vomiting in the ED. He does have pretty significant epigastric pain on exam. Initially was hyperglycemic with ketones he did have anion gap of 21 but a normal pH. Upon repeat blood work bicarb is now 16 and was previously 23. Concern worsening possible DKA. Insulin drip is ordered. CT does show possible renal mass and liver masses. He is having some epigastric and right upper quadrant pain he is given in Dilaudid for that. Dr. Rudolph accepts patient Critical Care Time <Isadora Csota, - Last Filed: 11/07/22 08:16> Critical Care Time Attestation: The high probability of a clinically significant, sudden or life threatening deterioration of the [endo, cardiac] system(s) required my full and direct attention, intervention and personal management. The aggregate critical care time was [] minutes. This time is in addition to time spent performing reported procedures but includes the following: [x] Data Review and interpretation [x] Patient assessment and monitoring of vital signs [x] Documentation [x] Medication orders and management Discharge Plan Departure Patient Disposition: Admitted As Inpatient Clinical Impression: Vomiting, DKA (diabetic ketoacidoses), Kidney mass Admit Date/Time: 11/06/22 21:54 Admit Provider: Philip Rudolph
[2022-11-06 17:12] LABS: Add Manual Diff / Slide Review NO; Basophils Absolute Auto 0 /uL (0-100); Basophils Percent Auto 0.5 % (0-2); Eosinophils Absolute Auto 0 /uL (0-450); Eosinophils Percent Auto 0.1 % (2-4); Hematocrit 37.2 % (41-53); Hemoglobin 12.8 g/dL (13.5-17.5); Lymphocytes Absolute Auto 300 /uL (1100-4500); Lymphocytes Percent Auto 5.8 % (25-40); Mean Corpuscular HGB Conc 34.5 % (30-36); Mean Corpuscular Volume 101.5 fL (80-100); Monocytes Absolute Auto 500 /uL (0-900); Monocytes Percent Auto 8.4 % (3-14); Neutrophils Absolute Auto 5000 /uL (1500-7000); Neutrophils Percent Auto 85.2 % (50-75); Platelet Count 65 X10^3/uL (150-400); Red Blood Cell Count 3.67 X10^6/uL (4.5-5.9); Red Cell Distribution Width 15.6 % (11.6-14.8); White Blood Cell Count 5.9 X10^3/uL (4.5-11.0)
[2022-11-06 17:23] LABS: Ammonia (NH3) 22 umol/L (9-30)
[2022-11-06 17:29] LABS: Alanine Aminotransferase 127 IU/L (<50); Albumin 3.9 g/dL (3.5-5.0); Albumin Globulin Ratio 1.5 (1.0-2.8); Alkaline Phosphatase 372 U/L (38-126); Aspartate Aminotransferase 313 IU/L (17-59); BUN Creatinine Ratio 53.8 (6-22); Bilirubin Total 1.7 mg/dL (0.2-1.3); Blood Urea Nitrogen 28 mg/dL (9-20); Calcium 8.8 mg/dL (8.4-10.2); Carbon Dioxide 23 mmol/L (22-32); Chloride 88 mmol/L (98-107); Estimated Glomerular Filt Rate > 60 mL/min (>60); Globulin 2.6 g/dL (1.7-4.1); HEMOLYSIS < 15 (0-50); Lactate (Lactic Acid) 1.3 mmol/L (0.7-2.1); Lipase 106 U/L (23-300); Sodium 123 mmol/L (137-145); Total Protein 6.5 g/dL (6.3-8.2)
[2022-11-06 17:31] LABS: Ketones (Beta-Hydroxybutyrate) 4.35 mmol/L (<0.27)
[2022-11-06 17:32] LABS: Appearance Urine UA CLEAR; Bilirubin Urine UA NEGATIVE (NEGATIVE); Color Urine UA YELLOW; Glucose Urine UA 3+ g/dL (Negative); Ketones Urine UA 2+ (NEGATIVE); Leukocyte Esterase Urine UA NEGATIVE (NEGATIVE); Nitrite Urine UA NEGATIVE (Negative); Occult Blood Urine UA NEGATIVE (Negative); Protein Urine UA NEGATIVE (Negative); Specific Gravity Urine UA <=1.005 (1.000-1.035); Urobilinogen Urine UA 0.2 E.U./dL (0.2); pH Urine UA 5.5 (4.5-8.0)
[2022-11-06 17:32] LABS: Potassium 5.7 mmol/L (3.4-5.1)
[2022-11-06 17:39] LABS: Glucose 682 mg/dL (70-100)
[2022-11-06 17:42] LABS: Bacteria Urine None Seen; Culture Indicated Urine Cult Not Indicated; RBC Urine 0-1/HPF (0-5/HPF); Squamous Epithelial Cell Urine None Seen (0-5/HPF); WBC Urine None Seen (0-5/HPF)
--- NOTE | 2022-11-06 17:49 | PC.NURSE ---
Pt states he does not wear a BG monitor because it's not working and his doctor will not give him new parts to fix the monitor. This RN asked pt how he manages and tracks his blood glucose levels and the patient states he gives himself an estimated amount of insulin daily based on how he is feeling at the time. Physician aware.
[2022-11-06 18:15] LABS: Fractionated Inspired Oxygen 21; HCO3 VBG 22 mmol/L (24-28); Oxygen Saturation VBG 78 % (70-75); PCO2 VBG 36.1 mmHg (45-50); PO2 VBG 42 mmHg (35-45); Total CO2 VBG 23 mmol/L (24-29)
[2022-11-06] MEDS: PANTOPRAZOLE 40 MG VIAL 80 MG IV (18:18)
[2022-11-06] MEDS: ONDANSETRON 4 MG/2 ML INJ IV (18:19)
--- NOTE | 2022-11-06 18:22 | DI.CT.S_ITS ---
PROCEDURE: CT CHEST ABD PEL W CON INDICATIONS: ruq pain TECHNIQUE: After the administration of intravenous contrast, 5 mm thick sections acquired from the lung apices to the symphysis. 5 mm coronal and sagittal reformats were performed, with additional 7 mm MIP reformats through the lungs. For radiation dose reduction, the following was used: automated exposure control, adjustment of mA and/or kV according to patient size. COMPARISON: None. FINDINGS: Image quality: Excellent. CHEST: Lungs and pleura: No acute airspace opacities. No pleural effusions or pneumothorax. Central and peripheral airways appear patent and normal in caliber. 5 millimeters subpleural nodule in the lateral right lower lobe smooth margins, favoring a benign intrapulmonary lymph node. Mediastinum: Heart size is normal. No pericardial effusion. No mediastinal or hilar adenopathy by size criteria. Thoracic aorta and central pulmonary arteries are normal in size. Esophagus wall is thickened. No hiatal hernia. Chest wall: No axillary or supraclavicular adenopathy by size criteria. Thyroid gland is unremarkable . ABDOMEN: Liver: Cirrhosis. Multiple lesions which demonstrate ill-defined margins, largest measuring 5.3 centimeters in segment 5/6 (2/65). Gallbladder and biliary tree: Cholecystectomy Spleen: Normal size. Pancreas: No ductal dilation. Atrophic. Adrenal glands: No adrenal nodules. Kidneys: Heterogeneous mass with regions of necrosis along the anterior margin of the left kidney measuring 3.5 centimeter (series 2, image 63). No venous invasion. Abutment of the adjacent psoas muscle. No hydronephrosis. Peritoneum and bowel: Bowel loops demonstrate normal wall thickness and caliber. No free fluid or air. Nodes and vessels: No retroperitoneal or mesenteric adenopathy by size criteria. Aorta and inferior vena cava are normal in size. Prominent portacaval nodes, nonspecific in the presence of cirrhosis. Portosystemic collaterals. Miscellaneous: No ventral hernias. PELVIS: Genitourinary: Bladder wall thickness is normal. Miscellaneous: No inguinal hernias or adenopathy. Bones: No suspicious bony lesions. No vertebral body compression fractures. IMPRESSION: Heterogeneous mass with regions of necrosis along the anterior margin of the left kidney measuring 3.5 centimeters, concerning for renal cell carcinoma. Complete characterization with MRI is recommended. Cirrhosis, multiple regions of ill-defined hypoattenuation. Differential includes multifocal HCC, metastasis, less likely focal fat deposition. Further evaluation with multiphasic MRI or CT is recommended (liver mass protocol). Dictated by: Zach Betts M.D. on 11/06/2022 at 19:54 Approved by: Zach Betts M.D. on 11/06/2022 at 19:59
--- NOTE | 2022-11-06 18:22 | DI.US.S_ITS ---
PROCEDURE: US ABDOMEN LIMITED INDICATIONS: RUQ PAIN TECHNIQUE: Real-time focused scanning was performed of the abdomen, with image documentation. COMPARISON: [facility], CT, CT CHEST ABD PEL W CON, 11/06/2022, 18:40. FINDINGS: Prior cholecystectomy. The liver is heterogeneous in appearance. Small amount of perihepatic free fluid present. No biliary ductal dilation demonstrated extrahepatic bile duct measures 6 millimeters. Pancreas not well visualized due to bowel gas. IMPRESSION: 1. Prior cholecystectomy. 2. Heterogeneous appearance of the liver, a nonspecific finding that can be seen in the setting of chronic liver disease. 3. Small amount of perihepatic free fluid. Dictated by: Jose Humphrey M.D. on 11/06/2022 at 19:38 Approved by: Jose Humphrey M.D. on 11/06/2022 at 19:39
[2022-11-06] MEDS: LACTATED RINGERS 1,000 ML 1000 ML IV ×2 (18:28→19:44)
[2022-11-06 19:24] LABS: INR 1.1 (0.9-1.3); Prothrombin Time 12.5 SECONDS (10.1-12.7)
[2022-11-06 19:27] LABS: PTT Partial Thromboplastin Tim 24 SECONDS (26-36)
[2022-11-06 21:11] LABS: Alanine Aminotransferase 129 IU/L (<50); Albumin 3.4 g/dL (3.5-5.0); Albumin Globulin Ratio 1.3 (1.0-2.8); Alkaline Phosphatase 271 U/L (38-126); Aspartate Aminotransferase 295 IU/L (17-59); BUN Creatinine Ratio 52.2 (6-22); Bilirubin Total 2.3 mg/dL (0.2-1.3); Blood Urea Nitrogen 24 mg/dL (9-20); Calcium 8.2 mg/dL (8.4-10.2); Carbon Dioxide 16 mmol/L (22-32); Chloride 96 mmol/L (98-107); Estimated Glomerular Filt Rate > 60 mL/min (>60); Globulin 2.6 g/dL (1.7-4.1); Glucose 476 mg/dL (70-100); HEMOLYSIS < 15 (0-50); Potassium 5.3 mmol/L (3.4-5.1); Sodium 128 mmol/L (137-145)
[2022-11-06] MEDS: INSULIN DRIP PREMIX 100 UNIT/100 ML PLAST..BAG 6 UNIT IV (22:30)
[2022-11-06] MEDS: SODIUM CHLORIDE 0.9% 1,000 ML 150 ML IV (22:30)
--- NOTE | 2022-11-06 22:52 | P.HP_ITS ---
History of Present Illness History of Present Illness Date Patient Seen: 11/06/22 Time Patient Seen: 22:52 Chief complaint: ABD pain, Vomiting blood Narrative: The pt is a very non-compliant 52 yo diabetic who presented to the ER tonkieran due to RUQ pain which he states has been present for the past year off & on. He describes it as sharp, intermettent, rated a 2-5 out of 10, non-radiating and often associated with hematemesis. Tonight he started having the pain which was worse than normal and associated with several episodes of hemetemesis that was worse than normal. Ronan reports that he has not taken his insulin for over a year due to poor compliance and f/up with PCP, he used to have a pump but no longer does for unknown reasons. The pt also states that he has had a 45 pound weight loss due to lack of appetite, and no insulin over the past 6 months. There has been no melana, BRBPR, night sweats, CP, or falling. [facility] Medical History (Updated 11/06/22 @ 23:02 by Philip Rudolph MD) Alcoholic cirrhosis of liver Dental infection Hemochromatosis IDDM (insulin dependent diabetes mellitus) Surgical History History of appendectomy History of cholecystectomy Social History household members: children Smoking Status: Current every day smoker Meds Home Medications and Allergies Home Medications Medication Instructions Recorded Confirmed Type insulin aspart U-100 100 unit/mL See Rx Instructions .Route .COMPLEX 03/09/19 10/05/19 History subcutaneous solution (Novolog U-100 Insulin aspart) amoxicillin 875 mg-potassium 1 tab PO BID #20 tabs 06/12/19 10/05/19 Rx clavulanate 125 mg tablet amoxicillin 875 mg-potassium 1 tab PO BID #20 tabs 10/05/19 10/05/19 Rx clavulanate 125 mg tablet (Augmentin) chlorhexidine gluconate 0.12 % 15 ml buccal BID #118 mL 10/05/19 10/05/19 Rx mouthwash hydrocodone 5 mg-acetaminophen 325 1 tab PO Q6H PRN pain #10 tabs 11/17/20 Rx mg tablet Allergies Allergy/AdvReac Type Severity Reaction Status Date / Time bee venom protein (honey bee) Allergy Severe anaphylaxis Verified 11/06/22 16:12 Review of Systems Review of Systems Narrative: all systems were reviewed and are negative except what is listed in the HPI Gastrointestinal Comments: nausea, hemetemesis, no diarrhea, Exam Vital Signs (past 8 hours): - 11/06/22 16:03 11/06/22 16:32 11/06/22 16:32 Temperature 97.8 F Pulse Rate 96 H 105 H Respiratory Rate 20 Blood Pressure 148/98 H 156/78 H Pulse Oximetry 100 97 Oxygen Delivery Method Room Air Oxygen Flow Rate 11/06/22 16:33 11/06/22 16:33 11/06/22 16:52 Temperature Pulse Rate 105 H 104 H Respiratory Rate 18 18 Blood Pressure 156/80 H Pulse Oximetry 98 97 Oxygen Delivery Method Oxygen Flow Rate 11/06/22 16:52 11/06/22 17:00 11/06/22 17:15 Temperature Pulse Rate 104 H 101 H Respiratory Rate 15 14 Blood Pressure 138/81 Pulse Oximetry 98 98 Oxygen Delivery Method Oxygen Flow Rate 11/06/22 17:30 11/06/22 17:45 11/06/22 18:00 Temperature Pulse Rate 103 H 104 H 108 H Respiratory Rate 18 15 19 Blood Pressure Pulse Oximetry 97 97 97 Oxygen Delivery Method Oxygen Flow Rate 11/06/22 18:15 11/06/22 18:22 11/06/22 18:22 Temperature Pulse Rate 109 H 109 H Respiratory Rate 18 17 Blood Pressure 139/78 Pulse Oximetry 98 98 Oxygen Delivery Method Oxygen Flow Rate 11/06/22 18:30 11/06/22 18:30 11/06/22 19:00 Temperature Pulse Rate 107 H 107 H Respiratory Rate 17 Blood Pressure 106/65 Pulse Oximetry 97 98 Oxygen Delivery Method Oxygen Flow Rate 11/06/22 19:15 11/06/22 19:30 11/06/22 19:42 Temperature Pulse Rate 108 H 109 H 110 H Respiratory Rate 17 18 14 Blood Pressure Pulse Oximetry 99 100 100 Oxygen Delivery Method Room Air Oxygen Flow Rate 11/06/22 19:42 11/06/22 19:45 11/06/22 20:00 Temperature Pulse Rate 110 H Respiratory Rate 17 Blood Pressure 123/62 120/57 L Pulse Oximetry 100 Oxygen Delivery Method Oxygen Flow Rate 11/06/22 20:00 11/06/22 20:15 11/06/22 20:35 Temperature Pulse Rate 109 H 113 H Respiratory Rate 17 18 Blood Pressure 116/62 Pulse Oximetry 100 100 Oxygen Delivery Method Oxygen Flow Rate 11/06/22 20:35 11/06/22 20:45 11/06/22 21:00 Temperature Pulse Rate 112 H 110 H Respiratory Rate 18 15 Blood Pressure 143/65 H Pulse Oximetry 92 99 Oxygen Delivery Method Oxygen Flow Rate 11/06/22 21:00 11/06/22 21:15 11/06/22 21:30 Temperature Pulse Rate 112 H 114 H Respiratory Rate 17 18 Blood Pressure 144/71 H Pulse Oximetry 99 98 Oxygen Delivery Method Oxygen Flow Rate 11/06/22 21:30 11/06/22 21:45 11/06/22 22:00 Temperature Pulse Rate 114 H 113 H 112 H Respiratory Rate 18 16 16 Blood Pressure Pulse Oximetry 99 98 98 Oxygen Delivery Method Oxygen Flow Rate 11/06/22 22:14 11/06/22 22:15 11/06/22 22:24 Temperature Pulse Rate 113 H 114 H Respiratory Rate 12 Blood Pressure 127/66 Pulse Oximetry 99 Oxygen Delivery Method Oxygen Flow Rate 11/06/22 22:26 11/06/22 22:26 11/06/22 22:30 Temperature 98.7 F Pulse Rate 113 H 114 H Respiratory Rate 12 18 Blood Pressure 154/76 H Pulse Oximetry 100 99 Oxygen Delivery Method Oxygen Flow Rate 0 Oxygen Delivery Method Room Air Oxygen Flow Rate 0 Const General: disheveled and ill appearing Resp Auscultation: clear to auscultation bilaterally Cardio Heart Sounds: S1 normal and S2 normal Pulses: radial pulses present GI Palpation: soft and tender Auscultation: normal bowel sounds Extrem General: edema Objective Imaging CT scan - abdomen: My impression: scattered lesions in the liver and 3.5 cm lesion in the left kidney. Labs 11/06/22 17:03 11/06/22 20:53 Labs: Laboratory Results - last 24 hr 11/06/22 11/06/22 11/06/22 17:01 17:03 17:03 WBC 5.9 RBC 3.67 L Hgb 12.8 L Hct 37.2 L MCV 101.5 H MCH 35.0 H MCHC 34.5 RDW 15.6 H Plt Count 65 L Neut % (Auto) 85.2 H Lymph % (Auto) 5.8 L Major % (Auto) 8.4 Eos % (Auto) 0.1 L Baso % (Auto) 0.5 Neut # (Auto) 5000 Lymph # (Auto) 300 L Major # (Auto) 500 Eos # (Auto) 0 Baso # (Auto) 0 PT INR APTT VBG pH VBG pCO2 VBG pO2 VBG HCO3 VBG Total CO2 VBG O2 Saturation VBG Base Excess FiO2 Sodium 123 L Potassium 5.7 H Chloride 88 L Carbon Dioxide 23 BUN 28 H Creatinine 0.52 L Estimated GFR > 60 BUN/Creatinine Ratio 53.8 H Glucose 682 H* Hemoglobin A1c Lactate Calcium 8.8 Total Bilirubin 1.7 H AST 313 H ALT 127 H Alkaline Phosphatase 372 H Ammonia 22 Total Protein 6.5 Albumin 3.9 Globulin 2.6 Albumin/Globulin Ratio 1.5 Lipase 106 Urine Color Urine Appearance Urine pH Ur Specific [place] Urine Protein Urine Glucose (UA) Urine Ketones Urine Occult Blood Urine Nitrate Urine Bilirubin Urine Urobilinogen Ur Leukocyte Esterase Urine RBC Urine WBC Ur Squamous Epith Cells Urine Bacteria Ur Culture Indicated? Ketones Blood Type Antibody Screen 11/06/22 11/06/22 11/06/22 17:03 17:03 17:03 WBC RBC Hgb Hct MCV MCH MCHC RDW Plt Count Neut % (Auto) Lymph % (Auto) Major % (Auto) Eos % (Auto) Baso % (Auto) Neut # (Auto) Lymph # (Auto) Major # (Auto) Eos # (Auto) Baso # (Auto) PT 12.5 INR 1.1 APTT 24 L VBG pH VBG pCO2 VBG pO2 VBG HCO3 VBG Total CO2 VBG O2 Saturation VBG Base Excess FiO2 Sodium Potassium Chloride Carbon Dioxide BUN Creatinine Estimated GFR BUN/Creatinine Ratio Glucose Hemoglobin A1c Lactate 1.3 Calcium Total Bilirubin AST ALT Alkaline Phosphatase Ammonia Total Protein Albumin Globulin Albumin/Globulin Ratio Lipase Urine Color Urine Appearance Urine pH Ur Specific [place] Urine Protein Urine Glucose (UA) Urine Ketones Urine Occult Blood Urine Nitrate Urine Bilirubin Urine Urobilinogen Ur Leukocyte Esterase Urine RBC Urine WBC Ur Squamous Epith Cells Urine Bacteria Ur Culture Indicated? Ketones 4.35 H Blood Type Antibody Screen 11/06/22 11/06/22 11/06/22 17:11 17:23 17:33 WBC RBC Hgb Hct MCV MCH MCHC RDW Plt Count Neut % (Auto) Lymph % (Auto) Major % (Auto) Eos % (Auto) Baso % (Auto) Neut # (Auto) Lymph # (Auto) Major # (Auto) Eos # (Auto) Baso # (Auto) PT INR APTT VBG pH 7.40 VBG pCO2 36.1 L VBG pO2 42 VBG HCO3 22 L VBG Total CO2 23 L VBG O2 Saturation 78 H VBG Base Excess -3.0 L FiO2 21 Sodium Potassium Chloride Carbon Dioxide BUN Creatinine Estimated GFR BUN/Creatinine Ratio Glucose Hemoglobin A1c Lactate Calcium Total Bilirubin AST ALT Alkaline Phosphatase Ammonia Total Protein Albumin Globulin Albumin/Globulin Ratio Lipase Urine Color Yellow Urine Appearance Clear Urine pH 5.5 Ur Specific [place] <=1.005 Urine Protein Negative Urine Glucose (UA) 3+ H Urine Ketones 2+ H Urine Occult Blood Negative Urine Nitrate Negative Urine Bilirubin Negative Urine Urobilinogen 0.2 Ur Leukocyte Esterase Negative Urine RBC 0-1/hpf Urine WBC None seen Ur Squamous Epith Cells None seen Urine Bacteria None seen Ur Culture Indicated? Cult not indicated Ketones Blood Type O Positive Antibody Screen Negative 11/06/22 11/06/22 20:53 22:33 WBC RBC Hgb Hct MCV MCH MCHC RDW Plt Count Neut % (Auto) Lymph % (Auto) Major % (Auto) Eos % (Auto) Baso % (Auto) Neut # (Auto) Lymph # (Auto) Major # (Auto) Eos # (Auto) Baso # (Auto) PT INR APTT VBG pH VBG pCO2 VBG pO2 VBG HCO3 VBG Total CO2 VBG O2 Saturation VBG Base Excess FiO2 Sodium 128 L Potassium 5.3 H Chloride 96 L Carbon Dioxide 16 L BUN 24 H Creatinine 0.46 L Estimated GFR > 60 BUN/Creatinine Ratio 52.2 H Glucose 476 H D Hemoglobin A1c Cancelled Lactate Calcium 8.2 L Total Bilirubin 2.3 H AST 295 H ALT 129 H Alkaline Phosphatase 271 H Ammonia Total Protein 6.0 L Albumin 3.4 L Globulin 2.6 Albumin/Globulin Ratio 1.3 Lipase Urine Color Urine Appearance Urine pH Ur Specific [place] Urine Protein Urine Glucose (UA) Urine Ketones Urine Occult Blood Urine Nitrate Urine Bilirubin Urine Urobilinogen Ur Leukocyte Esterase Urine RBC Urine WBC Ur Squamous Epith Cells Urine Bacteria Ur Culture Indicated? Ketones Blood Type Antibody Screen Assessment & Plan Assessment and plan (1) DKA (diabetic ketoacidoses): Status: Acute (2) Liver lesion, left lobe: Status: Acute (3) Kidney mass: Status: Acute Plan Will admit to the ICU, placing the pt on an insulin drip starting at 6 units/ hr, adjusting based upon Q1 hour glucose checks, on 150cc/hr of NS, given 2 liters of LR in ER. Will need to change to insulin bolus when stable, following the electrolytes Q4 hours, COMP daily. The pt does have significant elevation of the liver enzymes, due to his alcoholism and liver masses. Unknown if these are new or if the kidney lesions are new. Could consider biopsy of these masses via IR in the am. We are consulting the eICU frame stylist for help in this critically ill patient. antiemetic ordered, he is tachy but normal LA of 1.3.
[2022-11-06 22:55] LABS: Add Manual Diff / Slide Review NO; Basophils Absolute Auto 0 /uL (0-100); Basophils Percent Auto 0.4 % (0-2); Eosinophils Absolute Auto 0 /uL (0-450); Eosinophils Percent Auto 0.1 % (2-4); Hematocrit 35.6 % (41-53); Hemoglobin 12.2 g/dL (13.5-17.5); Lymphocytes Absolute Auto 500 /uL (1100-4500); Lymphocytes Percent Auto 7.3 % (25-40); Mean Corpuscular HGB Conc 34.4 % (30-36); Mean Corpuscular Hemoglobin 35.2 PG (26-34); Mean Corpuscular Volume 102.3 fL (80-100); Monocytes Absolute Auto 500 /uL (0-900); Monocytes Percent Auto 7.8 % (3-14); Neutrophils Absolute Auto 5400 /uL (1500-7000); Neutrophils Percent Auto 84.4 % (50-75); Platelet Count 68 X10^3/uL (150-400); Red Blood Cell Count 3.48 X10^6/uL (4.5-5.9); Red Cell Distribution Width 15.2 % (11.6-14.8); White Blood Cell Count 6.4 X10^3/uL (4.5-11.0)
[2022-11-06 23:01] LABS: Alanine Aminotransferase 153 IU/L (<50); Albumin 3.5 g/dL (3.5-5.0); Albumin Globulin Ratio 1.3 (1.0-2.8); Alkaline Phosphatase 254 U/L (38-126); Aspartate Aminotransferase 378 IU/L (17-59); BUN Creatinine Ratio 51.1 (6-22); Bilirubin Total 2.2 mg/dL (0.2-1.3); Blood Urea Nitrogen 24 mg/dL (9-20); Calcium 8.4 mg/dL (8.4-10.2); Carbon Dioxide 13 mmol/L (22-32); Chloride 97 mmol/L (98-107); Estimated Glomerular Filt Rate > 60 mL/min (>60); Globulin 2.6 g/dL (1.7-4.1); Glucose 467 mg/dL (70-100); HEMOLYSIS < 15 (0-50); Potassium 5.3 mmol/L (3.4-5.1); Sodium 129 mmol/L (137-145); Total Protein 6.1 g/dL (6.3-8.2)
[2022-11-06 23:20] LABS: Lactate (Lactic Acid) 1.5 mmol/L (0.7-2.1)
[2022-11-06 23:39] LABS: pH ABG 7.36 (7.35-7.45)
[2022-11-06 23:43] LABS: PCO2 ABG 24.2 mmHg (35-45)
[2022-11-06 23:44] LABS: Fractionated Inspired Oxygen 21; HCO3 ABG 14 mmol/L (23-27); Oxygen Saturation ABG 97 % (95-100); PO2 ABG 92 mmHg (80-100); TCO2 ABG 15 mmol/L (23-27)
--- NOTE | 2022-11-06 23:56 | P.TELICUCN_ITS ---
History of Present Illness Consult details IF CAMERA ACTIVATED, patient seen via real-time interactive audiovisual communication: Camera activated Chief complaint: ABD pain, Vomiting blood Consent obtained for tele-test worker care: Yes Patient Location: ICU Provider location (State): Other participants/roles: & RN Narrative: 52 yo male with DM II, alcohol abuse, varices , presented with mid epigastric/ RUQ pain, sharp, intermittent, rated a 2-3 out of 10, non-radiating and often as sociated with hematemesis. Last hematemesis was this am, no hematemesis since then, pt has not taken his insulin for over a year, he used to have a pump, he was found to have a DKA, pt also complaining of wt loss 45 pound over the past 6 months, CT showed liver cirrhosis with multiple regions of hypo densities concerning for HCC, Lt renal mass concerning for RCC. Assessment: Mild DKA Alcoholic hepatitis Upper GI bleed in the sitting of liver cirrhosis and Varices Alcoholic cirrhosis Alcohol abuse Thrombocytopenia Pseudohypontaremia Concern for HCC Concern for Lt RCC Rec: Continue insulin & fluid mgt per DKA protocol, labs & replacement per protocol Increase IV protonix to 40 mg bid Dc Tylenol & Lovenox Trend CBC, CMP & coags daily Folic acid, thiamin & MV [place] protocol Consider stopping the fluid after resolution of DKA as pt at risk of fluid overload & hyponatremia given the history of cirrhosis Oncology eval for HCC & RCC concerns SCD for DVT ppx CCT 35 min Discussed with the & RN [facility] Medical History (Updated 11/06/22 @ 23:02 by Philip Rudolph MD) Alcoholic cirrhosis of liver Dental infection Hemochromatosis IDDM (insulin dependent diabetes mellitus) Surgical History History of appendectomy History of cholecystectomy Social History household members: children Smoking Status: Current every day smoker Current Medications Current Medications Medications: Home Medications insulin aspart U-100 100 unit/mL subcutaneous solution (Novolog U-100 Insulin aspart) See Rx Instructions .Route .COMPLEX 03/09/19 [History Confirmed 10/05/19] amoxicillin 875 mg-potassium clavulanate 125 mg tablet 1 tab PO BID #20 tabs 06/12/19 [Rx Confirmed 10/05/19] amoxicillin 875 mg-potassium clavulanate 125 mg tablet (Augmentin) 1 tab PO BID #20 tabs 10/05/19 [Rx Confirmed 10/05/19] chlorhexidine gluconate 0.12 % mouthwash 15 ml buccal BID #118 mL 10/05/19 [Rx Confirmed 10/05/19] hydrocodone 5 mg-acetaminophen 325 mg tablet 1 tab PO Q6H PRN pain #10 tabs 11/17/20 [Rx] Visit Medications (administered) Generic Name Dose Route Start Last Admin Trade Name Freq PRN Reason Stop Dose Admin Sodium Chloride 1,000 mls @ 150 mls/hr 11/06/22 21:45 11/06/22 22:30 Normal Saline 0.9% IV 150 mls/hr CONT MINOO Administration INSULIN DRIP PREMIX 100 unit in 100 mls @ 6 mls/hr 11/06/22 22:15 11/06/22 22:30 Myxredlin Drip Premix IV 6 ml/hr TITRATE MINOO 6 mls/hr Administration Protocol Exam Vital Signs (past 8 hours): - 11/06/22 16:03 11/06/22 16:32 11/06/22 16:32 Temperature 97.8 F Pulse Rate 96 H 105 H Respiratory Rate 20 Blood Pressure 148/98 H 156/78 H Pulse Oximetry 100 97 Oxygen Delivery Method Room Air Oxygen Flow Rate 11/06/22 16:33 11/06/22 16:33 11/06/22 16:52 Temperature Pulse Rate 105 H 104 H Respiratory Rate 18 18 Blood Pressure 156/80 H Pulse Oximetry 98 97 Oxygen Delivery Method Oxygen Flow Rate 11/06/22 16:52 11/06/22 17:00 11/06/22 17:15 Temperature Pulse Rate 104 H 101 H Respiratory Rate 15 14 Blood Pressure 138/81 Pulse Oximetry 98 98 Oxygen Delivery Method Oxygen Flow Rate 11/06/22 17:30 11/06/22 17:45 11/06/22 18:00 Temperature Pulse Rate 103 H 104 H 108 H Respiratory Rate 18 15 19 Blood Pressure Pulse Oximetry 97 97 97 Oxygen Delivery Method Oxygen Flow Rate 11/06/22 18:15 11/06/22 18:22 11/06/22 18:22 Temperature Pulse Rate 109 H 109 H Respiratory Rate 18 17 Blood Pressure 139/78 Pulse Oximetry 98 98 Oxygen Delivery Method Oxygen Flow Rate 11/06/22 18:30 11/06/22 18:30 11/06/22 19:00 Temperature Pulse Rate 107 H 107 H Respiratory Rate 17 Blood Pressure 106/65 Pulse Oximetry 97 98 Oxygen Delivery Method Oxygen Flow Rate 11/06/22 19:15 11/06/22 19:30 11/06/22 19:42 Temperature Pulse Rate 108 H 109 H 110 H Respiratory Rate 17 18 14 Blood Pressure Pulse Oximetry 99 100 100 Oxygen Delivery Method Room Air Oxygen Flow Rate 11/06/22 19:42 11/06/22 19:45 11/06/22 20:00 Temperature Pulse Rate 110 H Respiratory Rate 17 Blood Pressure 123/62 120/57 L Pulse Oximetry 100 Oxygen Delivery Method Oxygen Flow Rate 11/06/22 20:00 11/06/22 20:15 11/06/22 20:35 Temperature Pulse Rate 109 H 113 H Respiratory Rate 17 18 Blood Pressure 116/62 Pulse Oximetry 100 100 Oxygen Delivery Method Oxygen Flow Rate 11/06/22 20:35 11/06/22 20:45 11/06/22 21:00 Temperature Pulse Rate 112 H 110 H Respiratory Rate 18 15 Blood Pressure 143/65 H Pulse Oximetry 92 99 Oxygen Delivery Method Oxygen Flow Rate 11/06/22 21:00 11/06/22 21:15 11/06/22 21:30 Temperature Pulse Rate 112 H 114 H Respiratory Rate 17 18 Blood Pressure 144/71 H Pulse Oximetry 99 98 Oxygen Delivery Method Oxygen Flow Rate 11/06/22 21:30 11/06/22 21:45 11/06/22 22:00 Temperature Pulse Rate 114 H 113 H 112 H Respiratory Rate 18 16 16 Blood Pressure Pulse Oximetry 99 98 98 Oxygen Delivery Method Oxygen Flow Rate 11/06/22 22:14 11/06/22 22:15 11/06/22 22:24 Temperature Pulse Rate 113 H 114 H Respiratory Rate 12 Blood Pressure 127/66 Pulse Oximetry 99 Oxygen Delivery Method Oxygen Flow Rate 11/06/22 22:26 11/06/22 22:26 11/06/22 22:30 Temperature 98.7 F Pulse Rate 113 H 114 H Respiratory Rate 12 18 Blood Pressure 154/76 H Pulse Oximetry 100 99 Oxygen Delivery Method Oxygen Flow Rate 0 Oxygen Delivery Method Room Air Oxygen Flow Rate 0 Objective Labs 11/06/22 22:33 11/06/22 22:33 Labs: Laboratory Results - last 24 hr 11/06/22 11/06/22 11/06/22 17:01 17:03 17:03 WBC 5.9 RBC 3.67 L Hgb 12.8 L Hct 37.2 L MCV 101.5 H MCH 35.0 H MCHC 34.5 RDW 15.6 H Plt Count 65 L Neut % (Auto) 85.2 H Lymph % (Auto) 5.8 L Powell % (Auto) 8.4 Eos % (Auto) 0.1 L Baso % (Auto) 0.5 Neut # (Auto) 5000 Lymph # (Auto) 300 L Powell # (Auto) 500 Eos # (Auto) 0 Baso # (Auto) 0 PT INR APTT ABG pH ABG pCO2 ABG pO2 ABG HCO3 ABG Total CO2 ABG O2 Saturation ABG Base Excess VBG pH VBG pCO2 VBG pO2 VBG HCO3 VBG Total CO2 VBG O2 Saturation VBG Base Excess FiO2 Sodium 123 L Potassium 5.7 H Chloride 88 L Carbon Dioxide 23 BUN 28 H Creatinine 0.52 L Estimated GFR > 60 BUN/Creatinine Ratio 53.8 H Glucose 682 H* Hemoglobin A1c Lactate Calcium 8.8 Total Bilirubin 1.7 H AST 313 H ALT 127 H Alkaline Phosphatase 372 H Ammonia 22 Total Protein 6.5 Albumin 3.9 Globulin 2.6 Albumin/Globulin Ratio 1.5 Lipase 106 Urine Color Urine Appearance Urine pH Ur Specific [place] Urine Protein Urine Glucose (UA) Urine Ketones Urine Occult Blood Urine Nitrate Urine Bilirubin Urine Urobilinogen Ur Leukocyte Esterase Urine RBC Urine WBC Ur Squamous Epith Cells Urine Bacteria Ur Culture Indicated? Ketones Blood Type Antibody Screen 11/06/22 11/06/22 11/06/22 17:03 17:03 17:03 WBC RBC Hgb Hct MCV MCH MCHC RDW Plt Count Neut % (Auto) Lymph % (Auto) Powell % (Auto) Eos % (Auto) Baso % (Auto) Neut # (Auto) Lymph # (Auto) Powell # (Auto) Eos # (Auto) Baso # (Auto) PT 12.5 INR 1.1 APTT 24 L ABG pH ABG pCO2 ABG pO2 ABG HCO3 ABG Total CO2 ABG O2 Saturation ABG Base Excess VBG pH VBG pCO2 VBG pO2 VBG HCO3 VBG Total CO2 VBG O2 Saturation VBG Base Excess FiO2 Sodium Potassium Chloride Carbon Dioxide BUN Creatinine Estimated GFR BUN/Creatinine Ratio Glucose Hemoglobin A1c Lactate 1.3 Calcium Total Bilirubin AST ALT Alkaline Phosphatase Ammonia Total Protein Albumin Globulin Albumin/Globulin Ratio Lipase Urine Color Urine Appearance Urine pH Ur Specific [place] Urine Protein Urine Glucose (UA) Urine Ketones Urine Occult Blood Urine Nitrate Urine Bilirubin Urine Urobilinogen Ur Leukocyte Esterase Urine RBC Urine WBC Ur Squamous Epith Cells Urine Bacteria Ur Culture Indicated? Ketones 4.35 H Blood Type Antibody Screen 11/06/22 11/06/22 11/06/22 17:11 17:23 17:33 WBC RBC Hgb Hct MCV MCH MCHC RDW Plt Count Neut % (Auto) Lymph % (Auto) [place] % (Auto) Eos % (Auto) Baso % (Auto) Neut # (Auto) Lymph # (Auto) Powell # (Auto) Eos # (Auto) Baso # (Auto) PT INR APTT ABG pH ABG pCO2 ABG pO2 ABG HCO3 ABG Total CO2 ABG O2 Saturation ABG Base Excess VBG pH 7.40 VBG pCO2 36.1 L VBG pO2 42 VBG HCO3 22 L VBG Total CO2 23 L VBG O2 Saturation 78 H VBG Base Excess -3.0 L FiO2 21 Sodium Potassium Chloride Carbon Dioxide BUN Creatinine Estimated GFR BUN/Creatinine Ratio Glucose Hemoglobin A1c Lactate Calcium Total Bilirubin AST ALT Alkaline Phosphatase Ammonia Total Protein Albumin Globulin Albumin/Globulin Ratio Lipase Urine Color Yellow Urine Appearance Clear Urine pH 5.5 Ur Specific [place] <=1.005 Urine Protein Negative Urine Glucose (UA) 3+ H Urine Ketones 2+ H Urine Occult Blood Negative Urine Nitrate Negative Urine Bilirubin Negative Urine Urobilinogen 0.2 Ur Leukocyte Esterase Negative Urine RBC 0-1/hpf Urine WBC None seen Ur Squamous Epith Cells None seen Urine Bacteria None seen Ur Culture Indicated? Cult not indicated Ketones Blood Type O Positive Antibody Screen Negative 11/06/22 11/06/22 11/06/22 20:53 22:33 22:33 WBC 6.4 RBC 3.48 L Hgb 12.2 L Hct 35.6 L MCV 102.3 H MCH 35.2 H MCHC 34.4 RDW 15.2 H Plt Count 68 L Neut % (Auto) 84.4 H Lymph % (Auto) 7.3 L Powell % (Auto) 7.8 Eos % (Auto) 0.1 L Baso % (Auto) 0.4 Neut # (Auto) 5400 Lymph # (Auto) 500 L Powell # (Auto) 500 Eos # (Auto) 0 Baso # (Auto) 0 PT INR APTT ABG pH ABG pCO2 ABG pO2 ABG HCO3 ABG Total CO2 ABG O2 Saturation ABG Base Excess VBG pH VBG pCO2 VBG pO2 VBG HCO3 VBG Total CO2 VBG O2 Saturation VBG Base Excess FiO2 Sodium 128 L 129 L Potassium 5.3 H 5.3 H Chloride 96 L 97 L Carbon Dioxide 16 L 13 L BUN 24 H 24 H Creatinine 0.46 L 0.47 L Estimated GFR > 60 > 60 BUN/Creatinine Ratio 52.2 H 51.1 H Glucose 476 H D 467 H Hemoglobin A1c Lactate Calcium 8.2 L 8.4 Total Bilirubin 2.3 H 2.2 H AST 295 H 378 H ALT 129 H 153 H Alkaline Phosphatase 271 H 254 H Ammonia Total Protein 6.0 L 6.1 L Albumin 3.4 L 3.5 Globulin 2.6 2.6 Albumin/Globulin Ratio 1.3 1.3 Lipase Urine Color Urine Appearance Urine pH Ur Specific [place] Urine Protein Urine Glucose (UA) Urine Ketones Urine Occult Blood Urine Nitrate Urine Bilirubin Urine Urobilinogen Ur Leukocyte Esterase Urine RBC Urine WBC Ur Squamous Epith Cells Urine Bacteria Ur Culture Indicated? Ketones Blood Type Antibody Screen 11/06/22 11/06/22 11/06/22 22:33 22:33 23:04 WBC RBC Hgb Hct MCV MCH MCHC RDW Plt Count Neut % (Auto) Lymph % (Auto) [place] % (Auto) Eos % (Auto) Baso % (Auto) Neut # (Auto) Lymph # (Auto) Powell # (Auto) Eos # (Auto) Baso # (Auto) PT INR APTT ABG pH 7.36 ABG pCO2 24.2 L* ABG pO2 92 ABG HCO3 14 L ABG Total CO2 15 L ABG O2 Saturation 97 ABG Base Excess -11.0 L VBG pH VBG pCO2 VBG pO2 VBG HCO3 VBG Total CO2 VBG O2 Saturation VBG Base Excess FiO2 21 Sodium Potassium Chloride Carbon Dioxide BUN Creatinine Estimated GFR BUN/Creatinine Ratio Glucose Hemoglobin A1c Cancelled Lactate 1.5 Calcium Total Bilirubin AST ALT Alkaline Phosphatase Ammonia Total Protein Albumin Globulin Albumin/Globulin Ratio Lipase Urine Color Urine Appearance Urine pH Ur Specific [place] Urine Protein Urine Glucose (UA) Urine Ketones Urine Occult Blood Urine Nitrate Urine Bilirubin Urine Urobilinogen Ur Leukocyte Esterase Urine RBC Urine WBC Ur Squamous Epith Cells Urine Bacteria Ur Culture Indicated? Ketones Blood Type Antibody Screen
[2022-11-06 23:59] LABS: MRSA (Nasal) PCR Not Detected (Not Detect)
[2022-11-07] VITALS (30 sets, daily range): BP systolic 104–148; BP diastolic 63–84; PULSE 94–117; RESP 11–23; TEMP 36.9–37.7; O2SAT 95–99
--- NOTE | 2022-11-07 00:15 | PC.NURSE ---
Addendum entered by Codie Grant R.N. 11/07/22 06:36: 0600- Patient states he has trouble obtaining his insulin supplies. He states his doctors have changed multiple times. He has only one syringe that he reuses after he bleaches it. He states he has to guess what dose he takes and rarely takes his blood glucose. Referral to [facility] made. Addendum entered by Codie Grant R.N. 11/07/22 03:29: 0330-Patient Gap is closed. Insulin infusion going at 6ml/hr. Krider x4 ordered per protocol. Patient could not tolerate a rate of 100. Rate decreased to 50cc/hr. Vitals are stable. Will monitor. Original Note: 2229- Patient arrived to room 231 via stretcher from ER. Patient is frail looking man, alert and oriented. Assisted to bed and oriented to the room. Daughters x2 with patient. Patient in no distress. Dr. Rudolph saw patient via remote video. Dr. Kirby consulted and saw patient via remove video. Orders rec.
[2022-11-07] MEDS: PANTOPRAZOLE 40 MG VIAL IV ×3 (00:19→20:40)
[2022-11-07] MEDS: DEXTROSE 5%-0.45% NS 1,000 ML 92 ML IV (02:30)
[2022-11-07 02:40] LABS: Blood Urea Nitrogen 23 mg/dL (9-20); Carbon Dioxide 23 mmol/L (22-32); Chloride 100 mmol/L (98-107); Estimated Glomerular Filt Rate > 60 mL/min (>60); Glucose 283 mg/dL (70-100); HEMOLYSIS < 15 (0-50); Potassium 3.9 mmol/L (3.4-5.1); Sodium 131 mmol/L (137-145)
[2022-11-07] MEDS: POTASSIUM CHLORIDE IN WATER 10 MEQ/100 ML PIGGYBACK 100 MEQ IV (03:18)
[2022-11-07] MEDS: POTASSIUM CHLORIDE IN WATER 10 MEQ/100 ML PIGGYBACK 50 MEQ IV ×3 (05:18→08:56)
[2022-11-07 06:55] LABS: BUN Creatinine Ratio 68.4 (6-22); Blood Urea Nitrogen 26 mg/dL (9-20); Carbon Dioxide 29 mmol/L (22-32); Chloride 100 mmol/L (98-107); Estimated Glomerular Filt Rate > 60 mL/min (>60); Glucose 200 mg/dL (70-100); HEMOLYSIS < 15 (0-50); Potassium 4.1 mmol/L (3.4-5.1); Sodium 129 mmol/L (137-145)
[2022-11-07 07:35] LABS: Acinetobacter calcoa-baumannii Not Detected (Not Detect); Bacteroides fragilis Not Detected (Not Detect); CTX-M Resistance Not Detected (Not Detect); Enterobacter cloacae complex Not Detected (Not Detect); Enterobacterales DETECTED (Not Detect); Enterococcus faecalis Not Detected (Not Detect); Enterococcus faecium Not Detected (Not Detect); IMP Resistance Not Detected (Not Detect); KPC Resistance Not Detected (Not Detect); Klebsiella aerogenes Not Detected (Not Detect); Listeria monocytogenes Not Detected (Not Detect); NDM Resistance Not Detected (Not Detect); OXA-48-like Resistance Not Detected (Not Detect); Staphylococcus epidermidis Not Detected (Not Detect); Staphylococcus lugdunensis Not Detected (Not Detect); Staphylococcus species Not Detected (Not Detect); Streptococcus agalactiae (Gr B Not Detected (Not Detect); Streptococcus pneumonia Not Detected (Not Detect); Streptococcus pyogenes (Gr A) Not Detected (Not Detect); Streptococcus species Not Detected (Not Detect); VIM Resistance Not Detected (Not Detect); mcr-1 Resistance Not Detected (Not Detect)
[2022-11-07 07:36] LABS: Candida albicans Not Detected (Not Detect); Candida auris Not Detected (Not Detect); Candida glabrata Not Detected (Not Detect); Candida krusei Not Detected (Not Detect); Candida parapsilosis Not Detected (Not Detect); Candida tropicalis Not Detected (Not Detect); Cryptococcus neoformans/gatti Not Detected (Not Detect); Haemophilus influenzae Not Detected (Not Detect); Neisseria meningitidis Not Detected (Not Detect); Proteus species Not Detected (Not Detect); Pseudomonas aeruginosa Not Detected (Not Detect); Salmonella species Not Detected (Not Detect); Serratia marcescens Not Detected (Not Detect); Stenotrophomonas maltophilia Not Detected (Not Detect)
[2022-11-07] MEDS: INSULIN DRIP PREMIX 100 UNIT/100 ML PLAST..BAG IV (07:57)
--- NOTE | 2022-11-07 08:29 | P.TELICUPN_ITS ---
Subjective Subjective IF CAMERA ACTIVATED, patient seen via real-time interactive audiovisual communication: Camera activated Consent obtained for tele-k 12 principal care: Yes Patient Location: ICU Provider location (State): [place] Other participants/roles: Bedside RN, family member Interval history: Briefly, a 52 years old male with diabetes type 2, alcohol abuse, esophageal varices, presented with mild epigastric/RUQ pain and an episode of hematemesis, has not been taking his insulin for over a year, found to be in DKA.? He had also endorsed significant weight loss of 45 pounds over the past [address] of abdomen showing findings of liver cirrhosis with multiple regions of hypodensities concerning for HCC.? Left renal mass concerning for RCC. Patient was admitted to ICU on insulin drip per DKA protocol.? Most recent BMP this morning shows resolution of acidosis with serum bicarb 29, anion gap of 0 and blood glucose less than 200.? Patient currently resting comfortably in bed, denies any new symptoms including fever, chills, shortness of breath, or cough.? Blood cultures x 2 positive for gram-negative rods.? Started on antibiotics. Current Medications Current Medications Medications: Home Medications adalimumab 40 mg/0.4 mL subcutaneous syringe kit (Humira(CF)) mg SUBCUT 11/07/22 [History] Visit Medications (administered) Generic Name Dose Route Start Last Admin Trade Name Keerthi PRN Reason Stop Dose Admin Sodium Chloride 1,000 mls @ 150 mls/hr 11/06/22 21:45 11/07/22 02:30 Normal Saline 0.9% IV 0 mls/hr CONT MINOO Infusion INSULIN DRIP PREMIX 100 unit in 100 mls @ 6 mls/hr 11/06/22 22:15 11/07/22 07:57 Myxredlin Drip Premix IV 4.9 ml/hr TITRATE MINOO 4.9 mls/hr Administration Protocol Dextrose/Sodium Chloride 1,000 mls @ 92 mls/hr 11/07/22 02:30 11/07/22 02:30 Dextrose 5%-0.45% Ns IV 92 mls/hr CONT MINOO Administration Pantoprazole Sodium 40 mg 11/06/22 23:45 11/07/22 00:19 Pantoprazole 40 Mg Vial IV 40 mg BID MINOO Administration Objective Labs 11/06/22 22:33 11/07/22 06:30 Labs: Laboratory Results - last 24 hr 11/06/22 11/06/22 11/06/22 16:50 17:01 17:03 WBC 5.9 RBC 3.67 L Hgb 12.8 L Hct 37.2 L MCV 101.5 H MCH 35.0 H MCHC 34.5 RDW 15.6 H Plt Count 65 L Neut % (Auto) 85.2 H Lymph % (Auto) 5.8 L [place] % (Auto) 8.4 Eos % (Auto) 0.1 L Baso % (Auto) 0.5 Neut # (Auto) 5000 Lymph # (Auto) 300 L [place] # (Auto) 500 Eos # (Auto) 0 Baso # (Auto) 0 PT INR APTT ABG pH ABG pCO2 ABG pO2 ABG HCO3 ABG Total CO2 ABG O2 Saturation ABG Base Excess VBG pH VBG pCO2 VBG pO2 VBG HCO3 VBG Total CO2 VBG O2 Saturation VBG Base Excess FiO2 Sodium Potassium Chloride Carbon Dioxide BUN Creatinine Estimated GFR BUN/Creatinine Ratio Glucose Hemoglobin A1c Lactate Calcium Total Bilirubin AST ALT Alkaline Phosphatase Ammonia 22 Total Protein Albumin Globulin Albumin/Globulin Ratio Lipase Urine Color Urine Appearance Urine pH Ur Specific [place] Urine Protein Urine Glucose (UA) Urine Ketones Urine Occult Blood Urine Nitrate Urine Bilirubin Urine Urobilinogen Ur Leukocyte Esterase Urine RBC Urine WBC Ur Squamous Epith Cells Urine Bacteria Ur Culture Indicated? Nasal Screen MRSA (PCR) Ketones A.calcoaceticus-baumannii cmplx PCR Not detected Bacteroides fragilis Not detected Nat albicans (PCR) Not detected Nat auris (PCR) Not detected C. glabrata (PCR) Not detected C. krusei (PCR) Not detected C. parapsilosis (PCR) Not detected C. tropicalis (PCR) Not detected C. neoform/gattii (PCR) Not detected Enterobacterales (PCR) Detected H E. cloacae complex PCR Not detected Enterococc faecalis PCR Not detected Enterococc faecium PCR Not detected E. coli (PCR) Not detected H. influenzae (PCR) Not detected Klebsiella aerogenes (PCR) Not detected Klebsiella oxytoca PCR Not detected Klebsiella pneumoniae Detected H List. monocytogenes PCR Not detected N. meningitidis (PCR) Not detected Proteus species (PCR) Not detected Salmonella spp. (PCR) Not detected Serratia marcescens PCR Not detected Staphylococcus sp PCR Not detected Staph aureus (PCR) Not detected mcr-1 Colistin Res Gene PCR Not detected Staph epidermidis (PCR) Not detected Staph lugdunensis PCR Not detected S. maltophilia (PCR) Not detected Streptococcus sp PCR Not detected Group A Strep (PCR) Not detected Strep agalactiae (PCR) Not detected Strep pneumoniae (PCR) Not detected P. aeruginosa (PCR) Not detected blaIMP Car res Gene PCR Not detected KPC-Carbap Res Gene PCR Not detected blaNDM Car Res Gene PCR Not detected OXA-48 Carbapenem Resis Gene (PCR) Not detected blaVIM Car Res Gene PCR Not detected CTX-M Gene Resistance (PCR) Not detected Blood Type Antibody Screen 11/06/22 11/06/22 11/06/22 17:03 17:03 17:03 WBC RBC Hgb Hct MCV MCH MCHC RDW Plt Count Neut % (Auto) Lymph % (Auto) [place] % (Auto) Eos % (Auto) Baso % (Auto) Neut # (Auto) Lymph # (Auto) [place] # (Auto) Eos # (Auto) Baso # (Auto) PT INR APTT ABG pH ABG pCO2 ABG pO2 ABG HCO3 ABG Total CO2 ABG O2 Saturation ABG Base Excess VBG pH VBG pCO2 VBG pO2 VBG HCO3 VBG Total CO2 VBG O2 Saturation VBG Base Excess FiO2 Sodium 123 L Potassium 5.7 H Chloride 88 L Carbon Dioxide 23 BUN 28 H Creatinine 0.52 L Estimated GFR > 60 BUN/Creatinine Ratio 53.8 H Glucose 682 H* Hemoglobin A1c Lactate 1.3 Calcium 8.8 Total Bilirubin 1.7 H AST 313 H ALT 127 H Alkaline Phosphatase 372 H Ammonia Total Protein 6.5 Albumin 3.9 Globulin 2.6 Albumin/Globulin Ratio 1.5 Lipase 106 Urine Color Urine Appearance Urine pH Ur Specific [place] Urine Protein Urine Glucose (UA) Urine Ketones Urine Occult Blood Urine Nitrate Urine Bilirubin Urine Urobilinogen Ur Leukocyte Esterase Urine RBC Urine WBC Ur Squamous Epith Cells Urine Bacteria Ur Culture Indicated? Nasal Screen MRSA (PCR) Ketones 4.35 H A.calcoaceticus-baumannii cmplx PCR Bacteroides fragilis Nat albicans (PCR) Nat auris (PCR) C. glabrata (PCR) C. krusei (PCR) C. parapsilosis (PCR) C. tropicalis (PCR) C. neoform/gattii (PCR) Enterobacterales (PCR) E. cloacae complex PCR Enterococc faecalis PCR Enterococc faecium PCR E. coli (PCR) H. influenzae (PCR) Klebsiella aerogenes (PCR) Klebsiella oxytoca PCR Klebsiella pneumoniae List. monocytogenes PCR N. meningitidis (PCR) Proteus species (PCR) Salmonella spp. (PCR) Serratia marcescens PCR Staphylococcus sp PCR Staph aureus (PCR) mcr-1 Colistin Res Gene PCR Staph epidermidis (PCR) Staph lugdunensis PCR S. maltophilia (PCR) Streptococcus sp PCR Group A Strep (PCR) Strep agalactiae (PCR) Strep pneumoniae (PCR) P. aeruginosa (PCR) blaIMP Car res Gene PCR KPC-Carbap Res Gene PCR blaNDM Car Res Gene PCR OXA-48 Carbapenem Resis Gene (PCR) blaVIM Car Res Gene PCR CTX-M Gene Resistance (PCR) Blood Type Antibody Screen 11/06/22 11/06/22 11/06/22 17:03 17:11 17:23 WBC RBC Hgb Hct MCV MCH MCHC RDW Plt Count Neut % (Auto) Lymph % (Auto) [place] % (Auto) Eos % (Auto) Baso % (Auto) Neut # (Auto) Lymph # (Auto) [place] # (Auto) Eos # (Auto) Baso # (Auto) PT 12.5 INR 1.1 APTT 24 L ABG pH ABG pCO2 ABG pO2 ABG HCO3 ABG Total CO2 ABG O2 Saturation ABG Base Excess VBG pH VBG pCO2 VBG pO2 VBG HCO3 VBG Total CO2 VBG O2 Saturation VBG Base Excess FiO2 Sodium Potassium Chloride Carbon Dioxide BUN Creatinine Estimated GFR BUN/Creatinine Ratio Glucose Hemoglobin A1c Lactate Calcium Total Bilirubin AST ALT Alkaline Phosphatase Ammonia Total Protein Albumin Globulin Albumin/Globulin Ratio Lipase Urine Color Yellow Urine Appearance Clear Urine pH 5.5 Ur Specific [place] <=1.005 Urine Protein Negative Urine Glucose (UA) 3+ H Urine Ketones 2+ H Urine Occult Blood Negative Urine Nitrate Negative Urine Bilirubin Negative Urine Urobilinogen 0.2 Ur Leukocyte Esterase Negative Urine RBC 0-1/hpf Urine WBC None seen Ur Squamous Epith Cells None seen Urine Bacteria None seen Ur Culture Indicated? Cult not indicated Nasal Screen MRSA (PCR) Ketones A.calcoaceticus-baumannii cmplx PCR Bacteroides fragilis Nat albicans (PCR) Nat auris (PCR) C. glabrata (PCR) C. krusei (PCR) C. parapsilosis (PCR) C. tropicalis (PCR) C. neoform/gattii (PCR) Enterobacterales (PCR) E. cloacae complex PCR Enterococc faecalis PCR Enterococc faecium PCR E. coli (PCR) H. influenzae (PCR) Klebsiella aerogenes (PCR) Klebsiella oxytoca PCR Klebsiella pneumoniae List. monocytogenes PCR N. meningitidis (PCR) Proteus species (PCR) Salmonella spp. (PCR) Serratia marcescens PCR Staphylococcus sp PCR Staph aureus (PCR) mcr-1 Colistin Res Gene PCR Staph epidermidis (PCR) Staph lugdunensis PCR S. maltophilia (PCR) Streptococcus sp PCR Group A Strep (PCR) Strep agalactiae (PCR) Strep pneumoniae (PCR) P. aeruginosa (PCR) blaIMP Car res Gene PCR KPC-Carbap Res Gene PCR blaNDM Car Res Gene PCR OXA-48 Carbapenem Resis Gene (PCR) blaVIM Car Res Gene PCR CTX-M Gene Resistance (PCR) Blood Type O Positive Antibody Screen Negative 11/06/22 11/06/22 11/06/22 17:33 20:53 22:20 WBC RBC Hgb Hct MCV MCH MCHC RDW Plt Count Neut % (Auto) Lymph % (Auto) [place] % (Auto) Eos % (Auto) Baso % (Auto) Neut # (Auto) Lymph # (Auto) [place] # (Auto) Eos # (Auto) Baso # (Auto) PT INR APTT ABG pH ABG pCO2 ABG pO2 ABG HCO3 ABG Total CO2 ABG O2 Saturation ABG Base Excess VBG pH 7.40 VBG pCO2 36.1 L VBG pO2 42 VBG HCO3 22 L VBG Total CO2 23 L VBG O2 Saturation 78 H VBG Base Excess -3.0 L FiO2 21 Sodium 128 L Potassium 5.3 H Chloride 96 L Carbon Dioxide 16 L BUN 24 H Creatinine 0.46 L Estimated GFR > 60 BUN/Creatinine Ratio 52.2 H Glucose 476 H D Hemoglobin A1c Lactate Calcium 8.2 L Total Bilirubin 2.3 H AST 295 H ALT 129 H Alkaline Phosphatase 271 H Ammonia Total Protein 6.0 L Albumin 3.4 L Globulin 2.6 Albumin/Globulin Ratio 1.3 Lipase Urine Color Urine Appearance Urine pH Ur Specific [place] Urine Protein Urine Glucose (UA) Urine Ketones Urine Occult Blood Urine Nitrate Urine Bilirubin Urine Urobilinogen Ur Leukocyte Esterase Urine RBC Urine WBC Ur Squamous Epith Cells Urine Bacteria Ur Culture Indicated? Nasal Screen MRSA (PCR) Not detected Ketones A.calcoaceticus-baumannii cmplx PCR Bacteroides fragilis Nat albicans (PCR) Nat auris (PCR) C. glabrata (PCR) C. krusei (PCR) C. parapsilosis (PCR) C. tropicalis (PCR) C. neoform/gattii (PCR) Enterobacterales (PCR) E. cloacae complex PCR Enterococc faecalis PCR Enterococc faecium PCR E. coli (PCR) H. influenzae (PCR) Klebsiella aerogenes (PCR) Klebsiella oxytoca PCR Klebsiella pneumoniae List. monocytogenes PCR N. meningitidis (PCR) Proteus species (PCR) Salmonella spp. (PCR) Serratia marcescens PCR Staphylococcus sp PCR Staph aureus (PCR) mcr-1 Colistin Res Gene PCR Staph epidermidis (PCR) Staph lugdunensis PCR S. maltophilia (PCR) Streptococcus sp PCR Group A Strep (PCR) Strep agalactiae (PCR) Strep pneumoniae (PCR) P. aeruginosa (PCR) blaIMP Car res Gene PCR KPC-Carbap Res Gene PCR blaNDM Car Res Gene PCR OXA-48 Carbapenem Resis Gene (PCR) blaVIM Car Res Gene PCR CTX-M Gene Resistance (PCR) Blood Type Antibody Screen 11/06/22 11/06/22 11/06/22 22:33 22:33 22:33 WBC 6.4 RBC 3.48 L Hgb 12.2 L Hct 35.6 L MCV 102.3 H MCH 35.2 H MCHC 34.4 RDW 15.2 H Plt Count 68 L Neut % (Auto) 84.4 H Lymph % (Auto) 7.3 L [place] % (Auto) 7.8 Eos % (Auto) 0.1 L Baso % (Auto) 0.4 Neut # (Auto) 5400 Lymph # (Auto) 500 L [place] # (Auto) 500 Eos # (Auto) 0 Baso # (Auto) 0 PT INR APTT ABG pH ABG pCO2 ABG pO2 ABG HCO3 ABG Total CO2 ABG O2 Saturation ABG Base Excess VBG pH VBG pCO2 VBG pO2 VBG HCO3 VBG Total CO2 VBG O2 Saturation VBG Base Excess FiO2 Sodium 129 L Potassium 5.3 H Chloride 97 L Carbon Dioxide 13 L BUN 24 H Creatinine 0.47 L Estimated GFR > 60 BUN/Creatinine Ratio 51.1 H Glucose 467 H Hemoglobin A1c Lactate 1.5 Calcium 8.4 Total Bilirubin 2.2 H AST 378 H ALT 153 H Alkaline Phosphatase 254 H Ammonia Total Protein 6.1 L Albumin 3.5 Globulin 2.6 Albumin/Globulin Ratio 1.3 Lipase Urine Color Urine Appearance Urine pH Ur Specific [place] Urine Protein Urine Glucose (UA) Urine Ketones Urine Occult Blood Urine Nitrate Urine Bilirubin Urine Urobilinogen Ur Leukocyte Esterase Urine RBC Urine WBC Ur Squamous Epith Cells Urine Bacteria Ur Culture Indicated? Nasal Screen MRSA (PCR) Ketones A.calcoaceticus-baumannii cmplx PCR Bacteroides fragilis Nat albicans (PCR) Nat auris (PCR) C. glabrata (PCR) C. krusei (PCR) C. parapsilosis (PCR) C. tropicalis (PCR) C. neoform/gattii (PCR) Enterobacterales (PCR) E. cloacae complex PCR Enterococc faecalis PCR Enterococc faecium PCR E. coli (PCR) H. influenzae (PCR) Klebsiella aerogenes (PCR) Klebsiella oxytoca PCR Klebsiella pneumoniae List. monocytogenes PCR N. meningitidis (PCR) Proteus species (PCR) Salmonella spp. (PCR) Serratia marcescens PCR Staphylococcus sp PCR Staph aureus (PCR) mcr-1 Colistin Res Gene PCR Staph epidermidis (PCR) Staph lugdunensis PCR S. maltophilia (PCR) Streptococcus sp PCR Group A Strep (PCR) Strep agalactiae (PCR) Strep pneumoniae (PCR) P. aeruginosa (PCR) blaIMP Car res Gene PCR KPC-Carbap Res Gene PCR blaNDM Car Res Gene PCR OXA-48 Carbapenem Resis Gene (PCR) blaVIM Car Res Gene PCR CTX-M Gene Resistance (PCR) Blood Type Antibody Screen 11/06/22 11/06/22 11/07/22 22:33 23:04 02:27 WBC RBC Hgb Hct MCV MCH MCHC RDW Plt Count Neut % (Auto) Lymph % (Auto) [place] % (Auto) Eos % (Auto) Baso % (Auto) Neut # (Auto) Lymph # (Auto) [place] # (Auto) Eos # (Auto) Baso # (Auto) PT INR APTT ABG pH 7.36 ABG pCO2 24.2 L* ABG pO2 92 ABG HCO3 14 L ABG Total CO2 15 L ABG O2 Saturation 97 ABG Base Excess -11.0 L VBG pH VBG pCO2 VBG pO2 VBG HCO3 VBG Total CO2 VBG O2 Saturation VBG Base Excess FiO2 21 Sodium 131 L Potassium 3.9 D Chloride 100 Carbon Dioxide 23 BUN 23 H Creatinine 0.46 L Estimated GFR > 60 BUN/Creatinine Ratio 50.0 H Glucose 283 H D Hemoglobin A1c Cancelled Lactate Calcium 8.0 L Total Bilirubin AST ALT Alkaline Phosphatase Ammonia Total Protein Albumin Globulin Albumin/Globulin Ratio Lipase Urine Color Urine Appearance Urine pH Ur Specific [place] Urine Protein Urine Glucose (UA) Urine Ketones Urine Occult Blood Urine Nitrate Urine Bilirubin Urine Urobilinogen Ur Leukocyte Esterase Urine RBC Urine WBC Ur Squamous Epith Cells Urine Bacteria Ur Culture Indicated? Nasal Screen MRSA (PCR) Ketones A.calcoaceticus-baumannii cmplx PCR Bacteroides fragilis Nat albicans (PCR) Nat auris (PCR) C. glabrata (PCR) C. krusei (PCR) C. parapsilosis (PCR) C. tropicalis (PCR) C. neoform/gattii (PCR) Enterobacterales (PCR) E. cloacae complex PCR Enterococc faecalis PCR Enterococc faecium PCR E. coli (PCR) H. influenzae (PCR) Klebsiella aerogenes (PCR) Klebsiella oxytoca PCR Klebsiella pneumoniae List. monocytogenes PCR N. meningitidis (PCR) Proteus species (PCR) Salmonella spp. (PCR) Serratia marcescens PCR Staphylococcus sp PCR Staph aureus (PCR) mcr-1 Colistin Res Gene PCR Staph epidermidis (PCR) Staph lugdunensis PCR S. maltophilia (PCR) Streptococcus sp PCR Group A Strep (PCR) Strep agalactiae (PCR) Strep pneumoniae (PCR) P. aeruginosa (PCR) blaIMP Car res Gene PCR KPC-Carbap Res Gene PCR blaNDM Car Res Gene PCR OXA-48 Carbapenem Resis Gene (PCR) blaVIM Car Res Gene PCR CTX-M Gene Resistance (PCR) Blood Type Antibody Screen 11/07/22 06:30 WBC RBC Hgb Hct MCV MCH MCHC RDW Plt Count Neut % (Auto) Lymph % (Auto) [place] % (Auto) Eos % (Auto) Baso % (Auto) Neut # (Auto) Lymph # (Auto) [place] # (Auto) Eos # (Auto) Baso # (Auto) PT INR APTT ABG pH ABG pCO2 ABG pO2 ABG HCO3 ABG Total CO2 ABG O2 Saturation ABG Base Excess VBG pH VBG pCO2 VBG pO2 VBG HCO3 VBG Total CO2 VBG O2 Saturation VBG Base Excess FiO2 Sodium 129 L Potassium 4.1 Chloride 100 Carbon Dioxide 29 BUN 26 H Creatinine 0.38 L Estimated GFR > 60 BUN/Creatinine Ratio 68.4 H Glucose 200 H Hemoglobin A1c Lactate Calcium 8.0 L Total Bilirubin AST ALT Alkaline Phosphatase Ammonia Total Protein Albumin Globulin Albumin/Globulin Ratio Lipase Urine Color Urine Appearance Urine pH Ur Specific [place] Urine Protein Urine Glucose (UA) Urine Ketones Urine Occult Blood Urine Nitrate Urine Bilirubin Urine Urobilinogen Ur Leukocyte Esterase Urine RBC Urine WBC Ur Squamous Epith Cells Urine Bacteria Ur Culture Indicated? Nasal Screen MRSA (PCR) Ketones A.calcoaceticus-baumannii cmplx PCR Bacteroides fragilis Nat albicans (PCR) Nat auris (PCR) C. glabrata (PCR) C. krusei (PCR) C. parapsilosis (PCR) C. tropicalis (PCR) C. neoform/gattii (PCR) Enterobacterales (PCR) E. cloacae complex PCR Enterococc faecalis PCR Enterococc faecium PCR E. coli (PCR) H. influenzae (PCR) Klebsiella aerogenes (PCR) Klebsiella oxytoca PCR Klebsiella pneumoniae List. monocytogenes PCR N. meningitidis (PCR) Proteus species (PCR) Salmonella spp. (PCR) Serratia marcescens PCR Staphylococcus sp PCR Staph aureus (PCR) mcr-1 Colistin Res Gene PCR Staph epidermidis (PCR) Staph lugdunensis PCR S. maltophilia (PCR) Streptococcus sp PCR Group A Strep (PCR) Strep agalactiae (PCR) Strep pneumoniae (PCR) P. aeruginosa (PCR) blaIMP Car res Gene PCR KPC-Carbap Res Gene PCR blaNDM Car Res Gene PCR OXA-48 Carbapenem Resis Gene (PCR) blaVIM Car Res Gene PCR CTX-M Gene Resistance (PCR) Blood Type Antibody Screen Exam Vital Signs (past 8 hours): - 11/07/22 01:00 11/07/22 01:00 11/07/22 02:00 Temperature Pulse Rate 116 H Respiratory Rate 17 Blood Pressure 122/64 117/68 Pulse Oximetry 97 Oxygen Delivery Method Oxygen Flow Rate 11/07/22 02:00 11/07/22 03:00 11/07/22 03:00 Temperature Pulse Rate 112 H 109 H Respiratory Rate 18 17 Blood Pressure 123/67 Pulse Oximetry 96 95 Oxygen Delivery Method Oxygen Flow Rate 0 0 11/07/22 04:00 11/07/22 04:00 11/07/22 04:04 Temperature 98.6 F Pulse Rate 108 H Respiratory Rate 14 Blood Pressure 104/69 Pulse Oximetry 96 Oxygen Delivery Method Room Air Oxygen Flow Rate 0 11/07/22 05:00 11/07/22 05:00 11/07/22 06:00 Temperature Pulse Rate 105 H Respiratory Rate 14 Blood Pressure 114/71 116/65 Pulse Oximetry 96 Oxygen Delivery Method Oxygen Flow Rate 11/07/22 06:00 Temperature Pulse Rate 102 H Respiratory Rate 15 Blood Pressure Pulse Oximetry 96 Oxygen Delivery Method Oxygen Flow Rate 0 Oxygen Delivery Method Room Air Oxygen Flow Rate 0 Narrative Exam Narrative: Comfortably resting in bed. In no distress. Quality TeleICU Stress Ulcer Stress ulcer prophylaxis: yes and on full treatment dose Assessment & Plan Assessment & Plan narrative: # DKA, in the setting of poorly controlled type 2 diabetes: - Admitted to ICU, received IV fluids and started on insulin drip per DKA protocol. - This morning, AGMA resolved.? Serum bicarb now 29, and anion gap 0. BG <200. - At this point, appropriate to be transition to subcu insulin.? Discussed with bedside RN. - Based on his requirement for insulin over last few hours, would calculated dose of Lantus to be administered now before transitioning off insulin drip. - Encouraged him to eat breakfast, and if tolerates well, would stop insulin drip as well as IV fluids and transition to [facility] Accu-Cheks and subcu insulin. - Would keep IV fluids and insulin drip running at least for 2 hours after tolerating breakfast to allow smooth transition. - Monitor BMP, Mg, Phos. Replace electrolytes as needed. Keep Mg >2.0. Keep K>4.0 while on insulin drip. # Metabolic encephalopathy, likely from DKA versus sepsis. - Continue to monitor, should improve with treatment of DKA ? # Sepsis / Gram-negative bacteremia: - Blood cultures x 2 with growth of gram-negative rods.? Presumed source intra- abdominal based on the CT. - Not on antibiotics on admission.? Start broad-spectrum IV antibiotics Zosyn with first dose stat.? Discussed with RN. - De-escalate antibiotics in the next 24 to 48 hours based on the culture sensitivity results. - Continue with maintenance IV fluids.? Continue to monitor fever and WBC curve. - Monitor markers of tissue perfusion including lactate clearance, urine output, base deficit, and mental status. # Upper GI bleed / Alcoholic liver cirrhosis / Esophageal varices / thrombocytopenia: - Presented with an episode of hematemesis, but now resolved. - Monitor H&H with serial CBC, transfuse for hemoglobin less than 7.0.? Correct coagulopathy as needed. - Monitor for signs/symptoms of EtOH withdrawal.? CIWA protocol, MVI/folate/thiamine. - Request GI consultation to evaluate for EGD if any recurrence of hematemesis. - Hold pharmacological DVT prophylaxis ? # Hyponatremia: - Pseudohyponatremia secondary to hyperglycemia - Will eventually correct with treatment of DKA # Concern for HCC and RCC: - He had also endorsed significant weight loss of 45 pounds over the past [address] of abdomen showing findings of liver cirrhosis with multiple regions of hypodensities concerning for HCC.? Left renal mass concerning for RCC. - Request oncology evaluation for further workup and treatment options. # FEN: Currently NPO. Start p.o. diet and advance as tolerated. # Glucose: On insulin drip per DKA protocol.? If tolerates diet, switch to Accu checks ACHS and SSI. BG goal 140-180 # Prophylaxis: SCDs for DVT prophylaxis, PPI for stress ulcer prophylaxis # Lines/tubes: PIV # CODE STATUS: Full code # Disposition: Remains in ICU.? Once fully transitioned off insulin drip, downgrade to [facility] telemetry floor. Above plan was discussed with bedside RN during tele-ICU multidisciplinary rounds this morning.? We will continue to follow.? Please call us if any additional questions.
[2022-11-07] MEDS: INSULIN GLARGINE 100 UNIT/ML 3ML PEN 20 UNIT SUBCUT ×2 (08:42→20:40)
[2022-11-07] MEDS: MULTIVITAMIN 1 TABLET 1 TAB PO (08:42)
[2022-11-07] MEDS: FOLIC ACID 1 MG TABLET PO (08:42)
[2022-11-07] MEDS: CEFEPIME 2 GM in SODIUM CHLORIDE 0.9% 100 ML IV ×2 (08:42→16:25)
[2022-11-07] MEDS: ONDANSETRON 4 MG ODT PO (08:59)
[2022-11-07 09:32] LABS: pH VBG 7.38 (7.33-7.43)
[2022-11-07] MEDS: THIAMINE 100 MG in SODIUM CHLORIDE 0.9% 100 ML 404 MG IV (10:34)
[2022-11-07 10:36] LABS: UR Morphine/Opiate cutoff 300 Negative (Negative); Ur Creatinine Normal (Normal); Ur Specific Gravity Normal (Normal); Urine Amphetamines Negative (Negative); Urine Barbiturates Negative (Negative); Urine Benzodiazepines Negative (Negative); Urine Cocaine Negative (Negative); Urine MDMA Negative (Negative); Urine Methadone Negative (Negative); Urine Methamphetamines Negative (Negative); Urine Oxycodone Negative (Negative); Urine Phencyclidine Negative (Negative); Urine Tetrahydrocannabinol Negative (Negative); Urine Tricyclic Antidepressant Negative (Negative); Urine pH Normal (Normal)
[2022-11-07] MEDS: INSULIN LISPRO 100 UNIT/ML 3ML VIAL SUBCUT ×5 (12:37→20:41)
--- NOTE | 2022-11-07 12:55 | PC.NURSE ---
Addendum entered by Randa Bowling R.N. 11/07/22 18:51: Called RT at 1810 regarding urgent EKG order placed by provider. When RT did not come by 1840, called again. Addendum entered by Randa Bowling R.N. 11/07/22 18:17: RN gave octreotide IV push per instructions and protocol. Upon giving the IV push, pt felt severe chest pounding, dizziness, SOB and nausea. RN stayed with pt, assessed Pt's vital signs, lung sounds and heart sounds. After event passed and RN assessed that patient was stable, RN reported side effects to the provider. Provider canceled continuous infusion and ordered EKG to further assess. Addendum entered by Randa Bowling R.N. 11/07/22 16:57: Pt temperature slowly elevating over day - 99.2 to 99.9. Provider notified. RN intervened with temp of 99.9 and placed ice packs in axillary and cool rag on forehead. Pt stating that this is helping. Original Note: Spoke with Tele-ICU provider on phone around 0730 regarding pt's BG level of 174 and when to turn the insulin gtt off. Provider said to leave it on until Lantus is given and patient eats breakfast. Spoke with hospitalist and hospitalist said to turn off insulin 1 hour after giving Lantus. Lab called to give a critical lab of gram negative rods in both blood cultures; spoke with tele-veterinary assistant technician and the hospitalist to relay on the critical lab. Mid morning, RN spoke with both tele-veterinary assistant technician and hospitalist and voiced pt concerns about neuropathy (burning) in lower extremities. Pt declining bed/chair alarm, RN counseled pt on calling for assistance when standing.
[2022-11-07 13:56] LABS: Albumin 2.8 g/dL (3.5-5.0); Albumin Globulin Ratio 1.1 (1.0-2.8); Alkaline Phosphatase 220 U/L (38-126); BUN Creatinine Ratio 54.5 (6-22); Bilirubin Total 1.3 mg/dL (0.2-1.3); Blood Urea Nitrogen 24 mg/dL (9-20); Calcium 7.7 mg/dL (8.4-10.2); Carbon Dioxide 26 mmol/L (22-32); Chloride 95 mmol/L (98-107); Estimated Glomerular Filt Rate > 60 mL/min (>60); Globulin 2.5 g/dL (1.7-4.1); Glucose 291 mg/dL (70-100); HEMOLYSIS < 15 (0-50); Potassium 4.1 mmol/L (3.4-5.1); Sodium 123 mmol/L (137-145); Total Protein 5.3 g/dL (6.3-8.2)
--- NOTE | 2022-11-07 14:01 | P.PN_ITS ---
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 CT imaging showed a necrotic renal mass, and multiple liver lesions. Blood cultures returned positive today with Enterobacter and Klebsiella, suspect most likely abdominal source. He feels a bit better, had a formed bowel movement very shortly after arrival to the floor. Tolerated a diet this morning. He tells me had had one beer about 5 days ago, but nothing since then. Liver enzymes have risen dramatically this afternoon, sodium has fallen, though bilirubin declined. I did discuss with GI provider at [facility], whom recommended transfer to center with hepatology, too complex for their hospital, possible transplant service. Exam Vital Signs (past 8 hours): - 11/07/22 07:00 11/07/22 07:00 11/07/22 08:00 Temperature Pulse Rate 99 H Respiratory Rate 17 Blood Pressure 118/68 121/74 Pulse Oximetry 97 Oxygen Delivery Method 11/07/22 08:00 11/07/22 09:00 11/07/22 09:00 Temperature Pulse Rate 100 H 103 H Respiratory Rate 11 L 15 Blood Pressure 138/84 Pulse Oximetry 97 97 Oxygen Delivery Method 11/07/22 10:00 11/07/22 10:00 11/07/22 11:00 Temperature 99.2 F Pulse Rate 101 H Respiratory Rate 19 Blood Pressure 119/70 132/74 Pulse Oximetry 96 Oxygen Delivery Method 11/07/22 11:00 11/07/22 08:00 11/07/22 12:00 Temperature Pulse Rate 97 H Respiratory Rate 20 Blood Pressure 133/75 Pulse Oximetry Oxygen Delivery Method Room Air 11/07/22 12:00 11/07/22 13:00 11/07/22 13:20 Temperature Pulse Rate 109 H 108 H Respiratory Rate 18 19 Blood Pressure 127/75 Pulse Oximetry Oxygen Delivery Method 11/07/22 13:20 11/07/22 12:00 Temperature Pulse Rate 109 H Respiratory Rate 16 Blood Pressure Pulse Oximetry Oxygen Delivery Method Room Air Oxygen Delivery Method Room Air Oxygen Flow Rate 0 Narrative Exam Narrative: General:? Chronically ill appearing male, comfortable, no acute distress HEENT:? Normocephalic, atraumatic, extraocular muscles intact, oral pharynx is clear and mucous membranes are moist. Neck: supple and symmetric, trachea is midline, no cervical adenopathy. Chest:? Normal AP diameter and contour without kyphoscoliosis, no tachypnea, equal chest rise bilaterally. Lungs:? CTA b/l no wheezing rhonchi or rales. Cardio: tachycardic, regular, no m/r/g Abdomen: soft, mild distension, tenderness epigastrium and RUQ, mild Musculoskeletal:? Muscle strength and tone are equal within normal limits, no deformity. Extremities: 1+ pitting edema b/l LE. Skin:? Pale,? Warm to touch,dry and intact without rashes, ulcerations or petech iae.? Neuro:? Alert and orientated x3,? sensation to touch intact in all extremities, no gross deficits noted of cranial nerves. Psych:? Patient has a well-kept appearance, appropriate affect, mental status attitude thought context and judgment are appropriate for age. Objective Labs 11/07/22 13:24 11/07/22 13:35 Labs: Laboratory Results - last 24 hr 11/06/22 11/06/22 11/06/22 16:50 17:01 17:03 WBC 5.9 RBC 3.67 L Hgb 12.8 L Hct 37.2 L MCV 101.5 H MCH 35.0 H MCHC 34.5 RDW 15.6 H Plt Count 65 L Neut % (Auto) 85.2 H Lymph % (Auto) 5.8 L Harmon % (Auto) 8.4 Eos % (Auto) 0.1 L Baso % (Auto) 0.5 Neut # (Auto) 5000 Lymph # (Auto) 300 L Harmon # (Auto) 500 Eos # (Auto) 0 Baso # (Auto) 0 PT INR APTT ABG pH ABG pCO2 ABG pO2 ABG HCO3 ABG Total CO2 ABG O2 Saturation ABG Base Excess VBG pH VBG pCO2 VBG pO2 VBG HCO3 VBG Total CO2 VBG O2 Saturation VBG Base Excess FiO2 Sodium Potassium Chloride Carbon Dioxide BUN Creatinine Estimated GFR BUN/Creatinine Ratio Glucose Hemoglobin A1c Lactate Calcium Total Bilirubin AST ALT Alkaline Phosphatase Ammonia 22 Total Protein Albumin Globulin Albumin/Globulin Ratio Lipase Urine Color Urine Appearance Urine pH Ur Specific [place] Urine Protein Urine Glucose (UA) Urine Ketones Urine Occult Blood Urine Nitrate Urine Bilirubin Urine Urobilinogen Ur Leukocyte Esterase Urine RBC Urine WBC Ur Squamous Epith Cells Urine Bacteria Ur Culture Indicated? Nasal Screen MRSA (PCR) U Opiates 300ng/mL cut Ur Oxycodone Screen Urine Methadone Screen Ur Barbiturates Screen U Tricyclic Antidepress Ur Phencyclidine Scrn Ur Amphetamines Screen U Methamphetamines Scrn Ur MDMA Scrn (Ecstasy) U Benzodiazepines Scrn Urine Cocaine Screen U Marijuana (THC) Screen Ketones A.calcoaceticus-baumannii cmplx PCR Not detected Bacteroides fragilis Not detected Nat albicans (PCR) Not detected Nat auris (PCR) Not detected C. glabrata (PCR) Not detected C. krusei (PCR) Not detected C. parapsilosis (PCR) Not detected C. tropicalis (PCR) Not detected C. neoform/gattii (PCR) Not detected Enterobacterales (PCR) Detected H E. cloacae complex PCR Not detected Enterococc faecalis PCR Not detected Enterococc faecium PCR Not detected E. coli (PCR) Not detected H. influenzae (PCR) Not detected Klebsiella aerogenes (PCR) Not detected Klebsiella oxytoca PCR Not detected Klebsiella pneumoniae Detected H List. monocytogenes PCR Not detected N. meningitidis (PCR) Not detected Proteus species (PCR) Not detected Salmonella spp. (PCR) Not detected Serratia marcescens PCR Not detected Staphylococcus sp PCR Not detected Staph aureus (PCR) Not detected mcr-1 Colistin Res Gene PCR Not detected Staph epidermidis (PCR) Not detected Staph lugdunensis PCR Not detected S. maltophilia (PCR) Not detected Streptococcus sp PCR Not detected Group A Strep (PCR) Not detected Strep agalactiae (PCR) Not detected Strep pneumoniae (PCR) Not detected P. aeruginosa (PCR) Not detected blaIMP Car res Gene PCR Not detected KPC-Carbap Res Gene PCR Not detected blaNDM Car Res Gene PCR Not detected OXA-48 Carbapenem Resis Gene (PCR) Not detected blaVIM Car Res Gene PCR Not detected CTX-M Gene Resistance (PCR) Not detected Blood Type Antibody Screen 11/06/22 11/06/22 11/06/22 17:03 17:03 17:03 WBC RBC Hgb Hct MCV MCH MCHC RDW Plt Count Neut % (Auto) Lymph % (Auto) Harmon % (Auto) Eos % (Auto) Baso % (Auto) Neut # (Auto) Lymph # (Auto) Harmon # (Auto) Eos # (Auto) Baso # (Auto) PT INR APTT ABG pH ABG pCO2 ABG pO2 ABG HCO3 ABG Total CO2 ABG O2 Saturation ABG Base Excess VBG pH VBG pCO2 VBG pO2 VBG HCO3 VBG Total CO2 VBG O2 Saturation VBG Base Excess FiO2 Sodium 123 L Potassium 5.7 H Chloride 88 L Carbon Dioxide 23 BUN 28 H Creatinine 0.52 L Estimated GFR > 60 BUN/Creatinine Ratio 53.8 H Glucose 682 H* Hemoglobin A1c Lactate 1.3 Calcium 8.8 Total Bilirubin 1.7 H AST 313 H ALT 127 H Alkaline Phosphatase 372 H Ammonia Total Protein 6.5 Albumin 3.9 Globulin 2.6 Albumin/Globulin Ratio 1.5 Lipase 106 Urine Color Urine Appearance Urine pH Ur Specific [place] Urine Protein Urine Glucose (UA) Urine Ketones Urine Occult Blood Urine Nitrate Urine Bilirubin Urine Urobilinogen Ur Leukocyte Esterase Urine RBC Urine WBC Ur Squamous Epith Cells Urine Bacteria Ur Culture Indicated? Nasal Screen MRSA (PCR) U Opiates 300ng/mL cut Ur Oxycodone Screen Urine Methadone Screen Ur Barbiturates Screen U Tricyclic Antidepress Ur Phencyclidine Scrn Ur Amphetamines Screen U Methamphetamines Scrn Ur MDMA Scrn (Ecstasy) U Benzodiazepines Scrn Urine Cocaine Screen U Marijuana (THC) Screen Ketones 4.35 H A.calcoaceticus-baumannii cmplx PCR Bacteroides fragilis Nat albicans (PCR) Nat auris (PCR) C. glabrata (PCR) C. krusei (PCR) C. parapsilosis (PCR) C. tropicalis (PCR) C. neoform/gattii (PCR) Enterobacterales (PCR) E. cloacae complex PCR Enterococc faecalis PCR Enterococc faecium PCR E. coli (PCR) H. influenzae (PCR) Klebsiella aerogenes (PCR) Klebsiella oxytoca PCR Klebsiella pneumoniae List. monocytogenes PCR N. meningitidis (PCR) Proteus species (PCR) Salmonella spp. (PCR) Serratia marcescens PCR Staphylococcus sp PCR Staph aureus (PCR) mcr-1 Colistin Res Gene PCR Staph epidermidis (PCR) Staph lugdunensis PCR S. maltophilia (PCR) Streptococcus sp PCR Group A Strep (PCR) Strep agalactiae (PCR) Strep pneumoniae (PCR) P. aeruginosa (PCR) blaIMP Car res Gene PCR KPC-Carbap Res Gene PCR blaNDM Car Res Gene PCR OXA-48 Carbapenem Resis Gene (PCR) blaVIM Car Res Gene PCR CTX-M Gene Resistance (PCR) Blood Type Antibody Screen 11/06/22 11/06/22 11/06/22 17:03 17:11 17:23 WBC RBC Hgb Hct MCV MCH MCHC RDW Plt Count Neut % (Auto) Lymph % (Auto) Harmon % (Auto) Eos % (Auto) Baso % (Auto) Neut # (Auto) Lymph # (Auto) Harmon # (Auto) Eos # (Auto) Baso # (Auto) PT 12.5 INR 1.1 APTT 24 L ABG pH ABG pCO2 ABG pO2 ABG HCO3 ABG Total CO2 ABG O2 Saturation ABG Base Excess VBG pH VBG pCO2 VBG pO2 VBG HCO3 VBG Total CO2 VBG O2 Saturation VBG Base Excess FiO2 Sodium Potassium Chloride Carbon Dioxide BUN Creatinine Estimated GFR BUN/Creatinine Ratio Glucose Hemoglobin A1c Lactate Calcium Total Bilirubin AST ALT Alkaline Phosphatase Ammonia Total Protein Albumin Globulin Albumin/Globulin Ratio Lipase Urine Color Yellow Urine Appearance Clear Urine pH 5.5 Ur Specific [place] <=1.005 Urine Protein Negative Urine Glucose (UA) 3+ H Urine Ketones 2+ H Urine Occult Blood Negative Urine Nitrate Negative Urine Bilirubin Negative Urine Urobilinogen 0.2 Ur Leukocyte Esterase Negative Urine RBC 0-1/hpf Urine WBC None seen Ur Squamous Epith Cells None seen Urine Bacteria None seen Ur Culture Indicated? Cult not indicated Nasal Screen MRSA (PCR) U Opiates 300ng/mL cut Ur Oxycodone Screen Urine Methadone Screen Ur Barbiturates Screen U Tricyclic Antidepress Ur Phencyclidine Scrn Ur Amphetamines Screen U Methamphetamines Scrn Ur MDMA Scrn (Ecstasy) U Benzodiazepines Scrn Urine Cocaine Screen U Marijuana (THC) Screen Ketones A.calcoaceticus-baumannii cmplx PCR Bacteroides fragilis Nat albicans (PCR) Nat auris (PCR) C. glabrata (PCR) C. krusei (PCR) C. parapsilosis (PCR) C. tropicalis (PCR) C. neoform/gattii (PCR) Enterobacterales (PCR) E. cloacae complex PCR Enterococc faecalis PCR Enterococc faecium PCR E. coli (PCR) H. influenzae (PCR) Klebsiella aerogenes (PCR) Klebsiella oxytoca PCR Klebsiella pneumoniae List. monocytogenes PCR N. meningitidis (PCR) Proteus species (PCR) Salmonella spp. (PCR) Serratia marcescens PCR Staphylococcus sp PCR Staph aureus (PCR) mcr-1 Colistin Res Gene PCR Staph epidermidis (PCR) Staph lugdunensis PCR S. maltophilia (PCR) Streptococcus sp PCR Group A Strep (PCR) Strep agalactiae (PCR) Strep pneumoniae (PCR) P. aeruginosa (PCR) blaIMP Car res Gene PCR KPC-Carbap Res Gene PCR blaNDM Car Res Gene PCR OXA-48 Carbapenem Resis Gene (PCR) blaVIM Car Res Gene PCR CTX-M Gene Resistance (PCR) Blood Type O Positive Antibody Screen Negative 11/06/22 11/06/22 11/06/22 17:33 20:53 22:20 WBC RBC Hgb Hct MCV MCH MCHC RDW Plt Count Neut % (Auto) Lymph % (Auto) Harmon % (Auto) Eos % (Auto) Baso % (Auto) Neut # (Auto) Lymph # (Auto) [place]on # (Auto) Eos # (Auto) Baso # (Auto) PT INR APTT ABG pH ABG pCO2 ABG pO2 ABG HCO3 ABG Total CO2 ABG O2 Saturation ABG Base Excess VBG pH 7.40 VBG pCO2 36.1 L VBG pO2 42 VBG HCO3 22 L VBG Total CO2 23 L VBG O2 Saturation 78 H VBG Base Excess -3.0 L FiO2 21 Sodium 128 L Potassium 5.3 H Chloride 96 L Carbon Dioxide 16 L BUN 24 H Creatinine 0.46 L Estimated GFR > 60 BUN/Creatinine Ratio 52.2 H Glucose 476 H D Hemoglobin A1c Lactate Calcium 8.2 L Total Bilirubin 2.3 H AST 295 H ALT 129 H Alkaline Phosphatase 271 H Ammonia Total Protein 6.0 L Albumin 3.4 L Globulin 2.6 Albumin/Globulin Ratio 1.3 Lipase Urine Color Urine Appearance Urine pH Ur Specific [place] Urine Protein Urine Glucose (UA) Urine Ketones Urine Occult Blood Urine Nitrate Urine Bilirubin Urine Urobilinogen Ur Leukocyte Esterase Urine RBC Urine WBC Ur Squamous Epith Cells Urine Bacteria Ur Culture Indicated? Nasal Screen MRSA (PCR) Not detected U Opiates 300ng/mL cut Ur Oxycodone Screen Urine Methadone Screen Ur Barbiturates Screen U Tricyclic Antidepress Ur Phencyclidine Scrn Ur Amphetamines Screen U Methamphetamines Scrn Ur MDMA Scrn (Ecstasy) U Benzodiazepines Scrn Urine Cocaine Screen U Marijuana (THC) Screen Ketones A.calcoaceticus-baumannii cmplx PCR Bacteroides fragilis Nat albicans (PCR) Nat auris (PCR) C. glabrata (PCR) C. krusei (PCR) C. parapsilosis (PCR) C. tropicalis (PCR) C. neoform/gattii (PCR) Enterobacterales (PCR) E. cloacae complex PCR Enterococc faecalis PCR Enterococc faecium PCR E. coli (PCR) H. influenzae (PCR) Klebsiella aerogenes (PCR) Klebsiella oxytoca PCR Klebsiella pneumoniae List. monocytogenes PCR N. meningitidis (PCR) Proteus species (PCR) Salmonella spp. (PCR) Serratia marcescens PCR Staphylococcus sp PCR Staph aureus (PCR) mcr-1 Colistin Res Gene PCR Staph epidermidis (PCR) Staph lugdunensis PCR S. maltophilia (PCR) Streptococcus sp PCR Group A Strep (PCR) Strep agalactiae (PCR) Strep pneumoniae (PCR) P. aeruginosa (PCR) blaIMP Car res Gene PCR KPC-Carbap Res Gene PCR blaNDM Car Res Gene PCR OXA-48 Carbapenem Resis Gene (PCR) blaVIM Car Res Gene PCR CTX-M Gene Resistance (PCR) Blood Type Antibody Screen 11/06/22 11/06/22 11/06/22 22:33 22:33 22:33 WBC 6.4 RBC 3.48 L Hgb 12.2 L Hct 35.6 L MCV 102.3 H MCH 35.2 H MCHC 34.4 RDW 15.2 H Plt Count 68 L Neut % (Auto) 84.4 H Lymph % (Auto) 7.3 L Harmon % (Auto) 7.8 Eos % (Auto) 0.1 L Baso % (Auto) 0.4 Neut # (Auto) 5400 Lymph # (Auto) 500 L Harmon # (Auto) 500 Eos # (Auto) 0 Baso # (Auto) 0 PT INR APTT ABG pH ABG pCO2 ABG pO2 ABG HCO3 ABG Total CO2 ABG O2 Saturation ABG Base Excess VBG pH 7.38 VBG pCO2 VBG pO2 VBG HCO3 VBG Total CO2 VBG O2 Saturation VBG Base Excess FiO2 Sodium 129 L Potassium 5.3 H Chloride 97 L Carbon Dioxide 13 L BUN 24 H Creatinine 0.47 L Estimated GFR > 60 BUN/Creatinine Ratio 51.1 H Glucose 467 H Hemoglobin A1c Lactate Calcium 8.4 Total Bilirubin 2.2 H AST 378 H ALT 153 H Alkaline Phosphatase 254 H Ammonia Total Protein 6.1 L Albumin 3.5 Globulin 2.6 Albumin/Globulin Ratio 1.3 Lipase Urine Color Urine Appearance Urine pH Ur Specific [place] Urine Protein Urine Glucose (UA) Urine Ketones Urine Occult Blood Urine Nitrate Urine Bilirubin Urine Urobilinogen Ur Leukocyte Esterase Urine RBC Urine WBC Ur Squamous Epith Cells Urine Bacteria Ur Culture Indicated? Nasal Screen MRSA (PCR) U Opiates 300ng/mL cut Ur Oxycodone Screen Urine Methadone Screen Ur Barbiturates Screen U Tricyclic Antidepress Ur Phencyclidine Scrn Ur Amphetamines Screen U Methamphetamines Scrn Ur MDMA Scrn (Ecstasy) U Benzodiazepines Scrn Urine Cocaine Screen U Marijuana (THC) Screen Ketones A.calcoaceticus-baumannii cmplx PCR Bacteroides fragilis Nat albicans (PCR) Nat auris (PCR) C. glabrata (PCR) C. krusei (PCR) C. parapsilosis (PCR) C. tropicalis (PCR) C. neoform/gattii (PCR) Enterobacterales (PCR) E. cloacae complex PCR Enterococc faecalis PCR Enterococc faecium PCR E. coli (PCR) H. influenzae (PCR) Klebsiella aerogenes (PCR) Klebsiella oxytoca PCR Klebsiella pneumoniae List. monocytogenes PCR N. meningitidis (PCR) Proteus species (PCR) Salmonella spp. (PCR) Serratia marcescens PCR Staphylococcus sp PCR Staph aureus (PCR) mcr-1 Colistin Res Gene PCR Staph epidermidis (PCR) Staph lugdunensis PCR S. maltophilia (PCR) Streptococcus sp PCR Group A Strep (PCR) Strep agalactiae (PCR) Strep pneumoniae (PCR) P. aeruginosa (PCR) blaIMP Car res Gene PCR KPC-Carbap Res Gene PCR blaNDM Car Res Gene PCR OXA-48 Carbapenem Resis Gene (PCR) blaVIM Car Res Gene PCR CTX-M Gene Resistance (PCR) Blood Type Antibody Screen 11/06/22 11/06/22 11/06/22 22:33 22:33 23:04 WBC RBC Hgb Hct MCV MCH MCHC RDW Plt Count Neut % (Auto) Lymph % (Auto) Harmon % (Auto) Eos % (Auto) Baso % (Auto) Neut # (Auto) Lymph # (Auto) [place] # (Auto) Eos # (Auto) Baso # (Auto) PT INR APTT ABG pH 7.36 ABG pCO2 24.2 L* ABG pO2 92 ABG HCO3 14 L ABG Total CO2 15 L ABG O2 Saturation 97 ABG Base Excess -11.0 L VBG pH VBG pCO2 VBG pO2 VBG HCO3 VBG Total CO2 VBG O2 Saturation VBG Base Excess FiO2 21 Sodium Potassium Chloride Carbon Dioxide BUN Creatinine Estimated GFR BUN/Creatinine Ratio Glucose Hemoglobin A1c Cancelled Lactate 1.5 Calcium Total Bilirubin AST ALT Alkaline Phosphatase Ammonia Total Protein Albumin Globulin Albumin/Globulin Ratio Lipase Urine Color Urine Appearance Urine pH Ur Specific [place] Urine Protein Urine Glucose (UA) Urine Ketones Urine Occult Blood Urine Nitrate Urine Bilirubin Urine Urobilinogen Ur Leukocyte Esterase Urine RBC Urine WBC Ur Squamous Epith Cells Urine Bacteria Ur Culture Indicated? Nasal Screen MRSA (PCR) U Opiates 300ng/mL cut Ur Oxycodone Screen Urine Methadone Screen Ur Barbiturates Screen U Tricyclic Antidepress Ur Phencyclidine Scrn Ur Amphetamines Screen U Methamphetamines Scrn Ur MDMA Scrn (Ecstasy) U Benzodiazepines Scrn Urine Cocaine Screen U Marijuana (THC) Screen Ketones A.calcoaceticus-baumannii cmplx PCR Bacteroides fragilis Nat albicans (PCR) Nat auris (PCR) C. glabrata (PCR) C. krusei (PCR) C. parapsilosis (PCR) C. tropicalis (PCR) C. neoform/gattii (PCR) Enterobacterales (PCR) E. cloacae complex PCR Enterococc faecalis PCR Enterococc faecium PCR E. coli (PCR) H. influenzae (PCR) Klebsiella aerogenes (PCR) Klebsiella oxytoca PCR Klebsiella pneumoniae List. monocytogenes PCR N. meningitidis (PCR) Proteus species (PCR) Salmonella spp. (PCR) Serratia marcescens PCR Staphylococcus sp PCR Staph aureus (PCR) mcr-1 Colistin Res Gene PCR Staph epidermidis (PCR) Staph lugdunensis PCR S. maltophilia (PCR) Streptococcus sp PCR Group A Strep (PCR) Strep agalactiae (PCR) Strep pneumoniae (PCR) P. aeruginosa (PCR) blaIMP Car res Gene PCR KPC-Carbap Res Gene PCR blaNDM Car Res Gene PCR OXA-48 Carbapenem Resis Gene (PCR) blaVIM Car Res Gene PCR CTX-M Gene Resistance (PCR) Blood Type Antibody Screen 11/07/22 11/07/22 11/07/22 02:27 06:30 10:15 WBC RBC Hgb Hct MCV MCH MCHC RDW Plt Count Neut % (Auto) Lymph % (Auto) [place] % (Auto) Eos % (Auto) Baso % (Auto) Neut # (Auto) Lymph # (Auto) [place] # (Auto) Eos # (Auto) Baso # (Auto) PT INR APTT ABG pH ABG pCO2 ABG pO2 ABG HCO3 ABG Total CO2 ABG O2 Saturation ABG Base Excess VBG pH VBG pCO2 VBG pO2 VBG HCO3 VBG Total CO2 VBG O2 Saturation VBG Base Excess FiO2 Sodium 131 L 129 L Potassium 3.9 D 4.1 Chloride 100 100 Carbon Dioxide 23 29 BUN 23 H 26 H Creatinine 0.46 L 0.38 L Estimated GFR > 60 > 60 BUN/Creatinine Ratio 50.0 H 68.4 H Glucose 283 H D 200 H Hemoglobin A1c Lactate Calcium 8.0 L 8.0 L Total Bilirubin AST ALT Alkaline Phosphatase Ammonia Total Protein Albumin Globulin Albumin/Globulin Ratio Lipase Urine Color Urine Appearance Urine pH Ur Specific [place] Urine Protein Urine Glucose (UA) Urine Ketones Urine Occult Blood Urine Nitrate Urine Bilirubin Urine Urobilinogen Ur Leukocyte Esterase Urine RBC Urine WBC Ur Squamous Epith Cells Urine Bacteria Ur Culture Indicated? Nasal Screen MRSA (PCR) U Opiates 300ng/mL cut Negative Ur Oxycodone Screen Negative Urine Methadone Screen Negative Ur Barbiturates Screen Negative U Tricyclic Antidepress Negative Ur Phencyclidine Scrn Negative Ur Amphetamines Screen Negative U Methamphetamines Scrn Negative Ur MDMA Scrn (Ecstasy) Negative U Benzodiazepines Scrn Negative Urine Cocaine Screen Negative U Marijuana (THC) Screen Negative Ketones A.calcoaceticus-baumannii cmplx PCR Bacteroides fragilis Nat albicans (PCR) Nat auris (PCR) C. glabrata (PCR) C. krusei (PCR) C. parapsilosis (PCR) C. tropicalis (PCR) C. neoform/gattii (PCR) Enterobacterales (PCR) E. cloacae complex PCR Enterococc faecalis PCR Enterococc faecium PCR E. coli (PCR) H. influenzae (PCR) Klebsiella aerogenes (PCR) Klebsiella oxytoca PCR Klebsiella pneumoniae List. monocytogenes PCR N. meningitidis (PCR) Proteus species (PCR) Salmonella spp. (PCR) Serratia marcescens PCR Staphylococcus sp PCR Staph aureus (PCR) mcr-1 Colistin Res Gene PCR Staph epidermidis (PCR) Staph lugdunensis PCR S. maltophilia (PCR) Streptococcus sp PCR Group A Strep (PCR) Strep agalactiae (PCR) Strep pneumoniae (PCR) P. aeruginosa (PCR) blaIMP Car res Gene PCR KPC-Carbap Res Gene PCR blaNDM Car Res Gene PCR OXA-48 Carbapenem Resis Gene (PCR) blaVIM Car Res Gene PCR CTX-M Gene Resistance (PCR) Blood Type Antibody Screen 11/07/22 13:35 WBC RBC Hgb Hct MCV MCH MCHC RDW Plt Count Neut % (Auto) Lymph % (Auto) [place] % (Auto) Eos % (Auto) Baso % (Auto) Neut # (Auto) Lymph # (Auto) [place] # (Auto) Eos # (Auto) Baso # (Auto) PT INR APTT ABG pH ABG pCO2 ABG pO2 ABG HCO3 ABG Total CO2 ABG O2 Saturation ABG Base Excess VBG pH VBG pCO2 VBG pO2 VBG HCO3 VBG Total CO2 VBG O2 Saturation VBG Base Excess FiO2 Sodium 123 L Potassium 4.1 Chloride 95 L Carbon Dioxide 26 BUN 24 H Creatinine 0.44 L Estimated GFR > 60 BUN/Creatinine Ratio 54.5 H Glucose 291 H Hemoglobin A1c Lactate Calcium 7.7 L Total Bilirubin 1.3 AST ALT > 750 H Alkaline Phosphatase 220 H Ammonia Total Protein 5.3 L Albumin 2.8 L Globulin 2.5 Albumin/Globulin Ratio 1.1 Lipase Urine Color Urine Appearance Urine pH Ur Specific [place] Urine Protein Urine Glucose (UA) Urine Ketones Urine Occult Blood Urine Nitrate Urine Bilirubin Urine Urobilinogen Ur Leukocyte Esterase Urine RBC Urine WBC Ur Squamous Epith Cells Urine Bacteria Ur Culture Indicated? Nasal Screen MRSA (PCR) U Opiates 300ng/mL cut Ur Oxycodone Screen Urine Methadone Screen Ur Barbiturates Screen U Tricyclic Antidepress Ur Phencyclidine Scrn Ur Amphetamines Screen U Methamphetamines Scrn Ur MDMA Scrn (Ecstasy) U Benzodiazepines Scrn Urine Cocaine Screen U Marijuana (THC) Screen Ketones A.calcoaceticus-baumannii cmplx PCR Bacteroides fragilis Nat albicans (PCR) Nat auris (PCR) C. glabrata (PCR) C. krusei (PCR) C. parapsilosis (PCR) C. tropicalis (PCR) C. neoform/gattii (PCR) Enterobacterales (PCR) E. cloacae complex PCR Enterococc faecalis PCR Enterococc faecium PCR E. coli (PCR) H. influenzae (PCR) Klebsiella aerogenes (PCR) Klebsiella oxytoca PCR Klebsiella pneumoniae List. monocytogenes PCR N. meningitidis (PCR) Proteus species (PCR) Salmonella spp. (PCR) Serratia marcescens PCR Staphylococcus sp PCR Staph aureus (PCR) mcr-1 Colistin Res Gene PCR Staph epidermidis (PCR) Staph lugdunensis PCR S. maltophilia (PCR) Streptococcus sp PCR Group A Strep (PCR) Strep agalactiae (PCR) Strep pneumoniae (PCR) P. aeruginosa (PCR) blaIMP Car res Gene PCR KPC-Carbap Res Gene PCR blaNDM Car Res Gene PCR OXA-48 Carbapenem Resis Gene (PCR) blaVIM Car Res Gene PCR CTX-M Gene Resistance (PCR) Blood Type Antibody Screen [facility] Medical History (Updated 11/06/22 @ 23:02 by Philip Rudolph MD) Alcoholic cirrhosis of liver Dental infection Hemochromatosis IDDM (insulin dependent diabetes mellitus) Surgical History History of appendectomy History of cholecystectomy Social History household members: children Smoking Status: Current every day smoker Assessment & Plan Assessment & Plan narrative: 1. 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 - now off of insulin infusion, continue on 20 U BID lantus, 5 U TID AC, and sliding scale, adjust as needed. 2. Sepsis secondary to Gram negative bacteremia (PCR with klebsiella and enterobacter) with elevated bilirubin, Acute metabolic encephalopathy, thrombocytopenia - suspect abdominal source of bacteremia. Unclear if secondary to necrotic renal mass seen on CT, or hepatobiliary in nature at this time, no ascites large enough to tap to rule out SBP. - continue cefepime 2g q8 hr for now, narrow based on cultures -ammonia level 22, encephalopathy has improved. 3. Acute blood loss anemia, with hematemesis and melena - concern for varices, will need EGD and colonoscopy as patient has not had one previously. Timing unclear with sepsis at this time. Colonoscopy recommended in the setting of multiple liver lesions to rule out metastatic malignancy from colon (less likely). Defer to higher level institution. - continue to follow h/h currently 12.8> 12.4 > 10.4. - IV PPI BID, consider octreotide infusion? discuss with GI at higher level 4. Alcoholic cirrhosis, with acute transaminitis, concern for acute liver failure - rapid rise this afternoon with ALT increasing to 1067, AST > 3634 a 10 fold increase in under 12 hours . Unclear if related to multiple liver lesions, bacteremia, or other etiology. He reports minimal EtOH intake, though this is another possibility. - he is not hypotensive at this time to suggest ischemic shock. Will discuss with hepatology as well if any additional labs are recommended. - will check tylenol level - ferritin ordered, ESR ordered, - Urine drug screen negative - Discussed with GI at [facility], recommended transfer to center with hepatology and possible transplant services. - Child's class B, MELD-Na of 22. 5. Acute hyponatremia - unclear volume status currently. Stop IV fluids, check urine sodium and urine osm. Glucose 291 with Na of 123. 6. L renal mass, Hepatic lesions - possible RCC with hepatic mets, possible necrotic area contributing to bacteremia - recommend IR biopsy, though timing unclear in setting of bacteremia. - transfer to higher level of care for further evaluation. Code: Full Dispo: pending transfer, he was ICU while on insulin infusion, have not downgraded given rising liver enzymes and concern for acute liver failure developing. I spent 55 minutes providing critical care management this patient. This excludes time spent in performing separately billed procedures.
[2022-11-07 14:37] LABS: Alanine Aminotransferase 1067 IU/L (<50)
[2022-11-07 14:42] LABS: Aspartate Aminotransferase 3634 IU/L (17-59)
[2022-11-07 14:49] LABS: Add Manual Diff / Slide Review NO; Basophils Absolute Auto 100 /uL (0-100); Eosinophils Absolute Auto 0 /uL (0-450); Eosinophils Percent Auto 0.4 % (2-4); Hematocrit 29.7 % (41-53); Hemoglobin 10.4 g/dL (13.5-17.5); Lymphocytes Absolute Auto 700 /uL (1100-4500); Lymphocytes Percent Auto 10.7 % (25-40); Mean Corpuscular HGB Conc 35.1 % (30-36); Mean Corpuscular Hemoglobin 35.8 PG (26-34); Mean Corpuscular Volume 101.8 fL (80-100); Monocytes Absolute Auto 600 /uL (0-900); Monocytes Percent Auto 9.7 % (3-14); Neutrophils Absolute Auto 5200 /uL (1500-7000); Neutrophils Percent Auto 78.2 % (50-75); Platelet Count 57 X10^3/uL (150-400); Red Blood Cell Count 2.91 X10^6/uL (4.5-5.9); Red Cell Distribution Width 15.7 % (11.6-14.8); White Blood Cell Count 6.6 X10^3/uL (4.5-11.0)
[2022-11-07 15:02] LABS: Acetaminophen < 10 ug/mL (10-30)
--- NOTE | 2022-11-07 15:02 | CM.DPNOTE ---
DCP Note 52 yo M PMH includes DM, former ETOH w/liver cirrhosis presents w/abd pain and vomiting blood, found to be very ill, admitted for management of DKA and potential biopsy of kidney, liver and left lobe mass/lesions According to Dr Liang, attempting transfer today CM team holding on any assessment of need, will plan to assess if patient does not transfer JW
[2022-11-07 15:08] LABS: Erythrocyte Sedimentation Rate 25 MM/HR (0-15)
--- NOTE | 2022-11-07 15:41 | DI.US.S_ITS ---
PROCEDURE: US ABDOMEN LIMITED INDICATIONS: ? PORTAL VEIN THROMBOSIS TECHNIQUE: Real-time scanning was performed of the abdominal and retroperitoneal organs, with image documentation. Color and pulse Doppler interrogation was also performed of the hepatic and splenic vessels, or of the lesion of interest. COMPARISON: [facility], , US ABDOMEN LIMITED, 11/06/2022, 18:30. FINDINGS: Liver: Liver is normal in size and moderately heterogeneous in echotexture without identified focal mass. Doppler: Main portal vein is patent, with luminal diameter of 18 mm (normal of 13-16 mm). On pulse Doppler interrogation, portal vein flow direction is hepatopetal. Hepatic artery Doppler waveforms demonstrate normal systolic upstrokes. Hepatic veins are all patent, with expected triphasic Doppler waveforms. No evidence of portal vein tumor or bland thrombosis. Gallbladder: Surgically absent Biliary ducts: No intrahepatic biliary ductal dilatation. Extrahepatic bile duct is 5.3 mm in caliber. Normal biliary caliber is 6-7 mm or less, or 10 mm or less post-cholecystectomy. Miscellaneous: No free abdominal fluid. IMPRESSION: Mild distension of the patent portal vein at 1.8 cm maximal diameter. No evidence of bland or tumor thrombosis of the portal vein. Heterogeneous hyperechoic liver consistent with fatty infiltration. No focal liver lesion seen. Prior cholecystectomy. Dictated by: Ziyad Burns M.D. on 11/07/2022 at 16:50 Approved by: Ziyad Burns M.D. on 11/07/2022 at 16:52
--- NOTE | 2022-11-07 16:52 | P.EN_ITS ---
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 Discussed case with Workplace Rehabilitation Officer at - most consistent with shock liver. Does recommend endoscopic evaluation. Not a specific indication for transfer. For liver lesion he should have triple phase CT or multiphasic MRI. Also needs imaging for his left renal mass. Unclear if these both can be done on the same MRI. No radiologist in house at this time, will need to discuss with them optimal workup. Did order ultrasound now to rule out portal vein thrombosis leading to acute rise in transaminase levels. Hg also continues to fall, along with platelets. Will continue to work on transfer. With concern for bleeding varices as well will start octreotide. General surgery does not do endoscopy here typically in patient's with varices, does not do banding.
[2022-11-07] MEDS: OCTREOTIDE 100 MCG/ML VIAL 50 MCG IV (17:35)
[2022-11-07 18:06] LABS: Sodium Urine Random 8 mmol/L (30-90)
[2022-11-07 18:27] LABS: Ferritin 10200 ng/mL (18-464)
[2022-11-07 19:11] LABS: HEMOLYSIS < 15 (0-50); Iron 160 ug/dL (49-181)
[2022-11-07 19:21] LABS: Total Iron Binding Capacity 211 ug/dL (261-462); Transferrin 123 mg/dL (206-381)
[2022-11-07 19:24] LABS: Percent Iron Saturation 76 % (20-50)
--- NOTE | 2022-11-07 20:40 | P.TELICUIN_ITS ---
Teleintensivist Intervention Date/Time Time Patient Seen: 20:41
--- NOTE | 2022-11-07 20:40 | PM.EICU.INT ---
Teleintensivist Intervention Date/Time Time Patient Seen: 20:41
[2022-11-07] MEDS: SODIUM CHLORIDE 0.9% FLUSH 10 ML IV (20:41)
--- NOTE | 2022-11-07 20:44 | PM.ICURNDS ---
- :: This patient was seen via real time interactive two-way audiovisual telecommunication. Note: Pt comfortable in bed, no complain, good appetite, no hematemeisis or BM, getting his lantus & ISS, noted to have low serum and urine sodium in the sitting of cirrhosis, recommend fluid restriction to 1 L , will likely need sodium tab and lasix in am to correct hyponatremia
[2022-11-07 21:35] LABS: x Labcorp Estim. Avg Glu (eAG) 306 mg/dL (.); x Labcorp Hemoglobin A1c 12.3 % (4.8-5.6)
[2022-11-08] VITALS (31 sets, daily range): BP systolic 104–152; BP diastolic 55–94; PULSE 91–105; RESP 15–26; TEMP 36.9–37.4; O2SAT 94–99
--- NOTE | 2022-11-08 | DI.MRI.S_ITS ---
PROCEDURE: MR ABDOMEN LIVER PROTOCOL INDICATIONS: concern for HCC or RCC, metastatic disease TECHNIQUE: Coronal HASTE, axial 2D FLASH in- and [id number]; axial breath-hold T2 FSE. Dynamic axial VIBE during the administration of contrast; post-contrast coronal VIBE or 2D FLASH with fat saturation from the hepatic dome to the iliac crests. Optional diffusion weighted imaging and ADC may be performed. COMPARISON: [facility], CT, CT CHEST ABD PEL W CON, 11/06/2022, 18:40. [facility], US, US ABDOMEN LIMITED, 11/07/2022, 16:02. FINDINGS: Image quality: Excellent. Lung bases: Small pleural effusions. Heart size is normal. Liver: Cirrhosis. Within the right hepatic lobe, there is T1 hyperintense signal, with corresponding restricted diffusion. Some of these regions do demonstrate washout, including the dominant lesion in the inferior right hepatic lobe measuring 4.0 centimeters (series 12, image 56). Gallbladder and biliary tree: Gallbladder is absent. No intrahepatic or extrahepatic biliary dilation Spleen: Enlarged. Pancreas: No ductal dilation. Adrenal glands: No adrenal nodules. Kidneys: Along the anterior, medial pole of the left kidney, there is a cystic lesion with a thick, enhancing wall with restricted diffusion measuring 3.4 centimeter (series 12, image 57). Nodes and vessels: No retroperitoneal or mesenteric adenopathy by size criteria. Aorta and inferior vena cava are normal in size. Bowel and peritoneum: Unenhanced bowel loops are normal in caliber. Small volume ascites. Bones and soft tissues: No ventral hernias. Bone marrow is normal in overall signal. IMPRESSION: Left renal cystic mass with a thick, enhancing wall and restricted diffusion measuring 3.4 centimeters. 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 Recommend urology referral. Cirrhosis. Heterogeneous intensity of the right hepatic lobe, with regions of restricted diffusion and heterogeneous enhancement with washout. Findings remain concerning for malignancy, less likely metastatic disease. An acute inflammatory process is also a consideration given the distribution. Biopsy may be needed for confirmation. Dictated by: Zach Betts M.D. on 11/08/2022 at 14:35 Approved by: Zach Betts M.D. on 11/08/2022 at 14:46
[2022-11-08] MEDS: CEFEPIME 2 GM in SODIUM CHLORIDE 0.9% 100 ML IV ×3 (00:33→16:43)
[2022-11-08 04:55] LABS: INR 1.4 (0.9-1.3); Prothrombin Time 16.2 SECONDS (10.1-12.7)
[2022-11-08 05:01] LABS: Hematocrit 30.3 % (41-53); Hemoglobin 10.6 g/dL (13.5-17.5); Mean Corpuscular HGB Conc 34.9 % (30-36); Mean Corpuscular Volume 100.5 fL (80-100); Platelet Count 43 X10^3/uL (150-400); Red Blood Cell Count 3.01 X10^6/uL (4.5-5.9); Red Cell Distribution Width 15.5 % (11.6-14.8); White Blood Cell Count 6.4 X10^3/uL (4.5-11.0)
[2022-11-08 05:02] LABS: Albumin 2.6 g/dL (3.5-5.0); Alkaline Phosphatase 236 U/L (38-126); BUN Creatinine Ratio 51.2 (6-22); Bilirubin Total 1.3 mg/dL (0.2-1.3); Blood Urea Nitrogen 22 mg/dL (9-20); Calcium 7.4 mg/dL (8.4-10.2); Carbon Dioxide 29 mmol/L (22-32); Chloride 95 mmol/L (98-107); Estimated Glomerular Filt Rate > 60 mL/min (>60); Globulin 2.7 g/dL (1.7-4.1); Glucose 234 mg/dL (70-100); HEMOLYSIS < 15 (0-50); Magnesium 1.7 mg/dL (1.6-2.3); Phosphorous 1.6 mg/dL (2.5-4.5); Potassium 3.8 mmol/L (3.4-5.1); Sodium 124 mmol/L (137-145); Total Protein 5.3 g/dL (6.3-8.2)
[2022-11-08 05:05] LABS: Add Manual Diff / Slide Review YES
[2022-11-08 05:12] LABS: Alanine Aminotransferase 1059 IU/L (<50)
[2022-11-08 05:50] LABS: Aspartate Aminotransferase 2587 IU/L (17-59)
[2022-11-08 06:41] LABS: Anisocytosis 1+; Macrocytosis 1+; Neutrophils Absolute Manual 5056 /uL (3000-5900); Total Cells Counted 100
[2022-11-08] MEDS: INSULIN GLARGINE 100 UNIT/ML 3ML PEN 20 UNIT SUBCUT ×2 (08:23→20:58)
[2022-11-08] MEDS: PANTOPRAZOLE 40 MG VIAL IV ×2 (08:23→20:59)
[2022-11-08] MEDS: INSULIN LISPRO 100 UNIT/ML 3ML VIAL SUBCUT ×7 (08:23→20:59)
[2022-11-08] MEDS: FOLIC ACID 1 MG TABLET PO (08:23)
[2022-11-08] MEDS: MULTIVITAMIN 1 TABLET 1 TAB PO (08:23)
[2022-11-08] MEDS: SODIUM CHLORIDE 0.9% FLUSH 10 ML IV ×2 (08:27→20:59)
--- NOTE | 2022-11-08 09:50 | PM.PN.EICU ---
Subjective Subjective IF CAMERA ACTIVATED, patient seen via real-time interactive audiovisual communication: Camera activated Consent obtained for tele-credit coordinator care: Yes Patient Location: ICU Provider location (State): [place] Other participants/roles: Bedside RN Interval history: Patient was examined using two-way interactive audiovisual equipment. Briefly, a 52 years old male with diabetes type 2, alcohol abuse, esophageal varices, presented with mild epigastric/RUQ pain and an episode of hematemesis, has not been taking his insulin for over a year, found to be in DKA.? He had also endorsed significant weight loss of 45 pounds over the past [address] of abdomen showing findings of liver cirrhosis with multiple regions of hypodensities concerning for HCC.? Left renal mass concerning for RCC. Past 24 hours clinical summary: Patient was admitted to ICU on insulin drip per DKA protocol. The DKA has now resolved, and patient has been transitioned to subcu insulin. BG uncontrolled this am (>200) but AGMA resolved. Over the past 24 hours, noted to have worsening LFTs (>2000) with about 10 fold increased in transaminases concerning for acute liver failure. On-going attempts being made to transfer him to higher level of care for hepatology/transplant evaluation. Blood cultures now with growth of klebsiella and enterobacter, remains on Cefepime. This morning, denies any fever, chills, chest pain, SOB, abdominal pain, nausea or vomiting. Comfortably resting in bed and in no distress. Hemodynamically stable. No other acute issues reported, Assessment/Plan: # DKA, in the setting of poorly controlled type 2 diabetes: - Admitted to ICU on insulin drip per DKA protocol. - AGMA Now resolved. Discontinued Insulin gtt and transitioned to subcu insulin. - BG still remains uncontrolled with most recent BG 234. Recommend to adjust insulin regimen (Lantus dose) and SSI accordingly. - Discontinue maintenance IVF (due to liver failure and avoid fluid overload). Currently, on 1 L/day fluid restriction and salt tablets. # Metabolic encephalopathy, likely from DKA versus sepsis. - Resolved with treatment of DKA and sepsis. Mentation intact. - Check ammonia level if becomes encephalopathic again. Most recent ammonia level 22. ? # Sepsis / Gram-negative bacteremia: - Blood cultures x 2 with growth of klebsiella and enterobacter, remains on Cefepime.? Presumed source intra-abdominal based on the CT (?SBP). Ascites pocket not large enough for diagnostic paracentesis per primary team. - C/w IV antibiotics Cefepime pending final c/s. - De-escalate antibiotics in the next 24 to 48 hours based on the culture sensitivity results. - Discontinued maintenance IV fluids to avoid fluid overload in the setting of liver failure.? Continue to monitor fever and WBC curve. - Monitor markers of tissue perfusion including lactate clearance, urine output, base deficit, and mental status. # Worsening transminitis with concern for acute liver failure / Alcoholic liver cirrhosis: - Rapid rise in LFTs (>10 fold since admission) concerning for acute liver failure. Unclear etiology but possible differentials would be acute alcoholic hepatitis (although denies recent ETOH intake) vs infiltration of liver from metastatic lesions (as demonstrated by CT) vs shock liver (less likely in the absense of hypotension) - Child's class B, MELD-Na score of 22. F/up on tylenol levels, ferritin. Order US of liver. - Please consider starting NAC protocol. NAC (N-acetylcysteine) is an antioxidant agent that?may improve survival and reduce complications in patients with acute liver failure (USP) caused by iik-rpcjvymumayki-wjumbjq factors. - Ongoing attempts in progress to transfer him to higher level of care for hepatology/transplant evaluation. # Upper GI Bleed / Esophageal varices / thrombocytopenia / Alcoholic liver cirrhosis: - Presented with an episode of hematemesis, but now resolved. - Monitor H&H with serial CBC, transfuse for hemoglobin less than 7.0.? Correct coagulopathy as needed. - Monitor for signs/symptoms of EtOH withdrawal.? CIWA protocol, MVI/folate/thiamine. - Need GI consultation to evaluate for EGD (?varices) and colonoscopy (colon malignancy). - C/w IV PPI and Octreotide infusion pending GI evaluation. - Hold pharmacological DVT prophylaxis # Hyponatremia: - Most likely from hypervolemia/fluid oveload. - Complete basic work up including serum and urine osmolality, urine electrolytes. - Agree with stopping IVF and c/w fluid/salt restriction - Some componento of pseudohyponatremia secondary to hyperglycemia. - Monitor with serial BMP Q12 hours. # Concern for HCC and RCC: - He had also endorsed significant weight loss of 45 pounds over the past [address] of abdomen showing findings of liver cirrhosis with multiple regions of hypodensities concerning for HCC.? Left renal mass concerning for RCC. - Primary team planning for further imaging (triple phase CT or MRI abdomen). - Need tissue diagnosis with biopsy and oncology evaluation to address treatment options. # FEN: Started p.o. diet (salt restricted).. # Glucose: Uncontrolled. On Lantus 20 units BID and ACHS Accu checks ACHS and SSI. BG goal 140-180 # Prophylaxis: SCDs for DVT prophylaxis, PPI for stress ulcer prophylaxis # Lines/tubes: PIV # CODE STATUS: Full code # Disposition: Remains in ICU awaiting for transfer to another facility for a higher level of care.? Above plan was discussed with bedside RN during tele-ICU multidisciplinary rounds this morning.? We will continue to follow.? Please call us if any additional questions. Current Medications Current Medications Medications: Home Medications adalimumab 40 mg/0.4 mL subcutaneous syringe kit (Humira(CF)) mg SUBCUT 11/07/22 [History] Visit Medications (administered) Generic Name Dose Route Start Last Admin Trade Name Keerthi PRN Reason Stop Dose Admin Folic Acid 1 mg 11/07/22 09:00 11/08/22 08:23 Folic Acid 1 Mg Tablet PO 1 mg DAILY MINOO Administration Cefepime HCl 2 gm/ Sodium 100 mls @ 200 mls/hr 11/07/22 08:00 11/08/22 08:22 Chloride IV 200 mls/hr Q8H MINOO Administration Insulin Glargine 20 unit 11/07/22 09:00 11/08/22 08:23 Insulin Glargine 100 Unit/Ml 3ml Pen SUBCUT 20 unit BID MINOO Administration Insulin Human Lispro 0 unit 11/07/22 11:45 11/08/22 08:24 Insulin Lispro 100 Unit/Ml 3ml Vial SUBCUT 4 unit ACHS MINOO Administration Protocol Insulin Human Lispro 5 unit 11/07/22 11:45 11/08/22 08:23 Insulin Lispro 100 Unit/Ml 3ml Vial SUBCUT 5 unit AC MINOO Administration Multivitamins 1 tab 11/07/22 09:00 11/08/22 08:23 Multivitamin 1 Tablet PO 1 tab DAILY MINOO Administration Pantoprazole Sodium 40 mg 11/06/22 23:45 11/08/22 08:23 Pantoprazole 40 Mg Vial IV 40 mg BID MINOO Administration Sodium Chloride 10 ml 11/07/22 21:00 08/12/23 08:27 Sodium Chloride 0.9% Flush IV 10 ml BID MINOO Administration Objective Labs 11/08/22 04:13 11/08/22 04:13 Labs: Laboratory Results - last 24 hr 11/06/22 11/07/22 11/07/22 22:33 10:15 13:24 WBC 6.6 RBC 2.91 L Hgb 10.4 L Hct 29.7 L MCV 101.8 H MCH 35.8 H MCHC 35.1 RDW 15.7 H Plt Count 57 L Neut % (Auto) 78.2 H Lymph % (Auto) 10.7 L [place] % (Auto) 9.7 Eos % (Auto) 0.4 L Baso % (Auto) 1.0 Neut # (Auto) 5200 Lymph # (Auto) 700 L [place] # (Auto) 600 Eos # (Auto) 0 Baso # (Auto) 100 Total Counted Seg Neutrophils % Band Neutrophils % Lymphocytes % (Manual) Monocytes % (Manual) Neutrophils # (Manual) RBC Morphology Anisocytosis Macrocytosis ESR 25 H PT INR Sodium Potassium Chloride Carbon Dioxide BUN Creatinine Estimated GFR BUN/Creatinine Ratio Glucose Hgb A1c (Ref Lab) 12.3 H Estim Average Glucose 306 Calcium Phosphorus Magnesium Iron TIBC % Saturation Transferrin Ferritin Total Bilirubin AST ALT Alkaline Phosphatase Total Protein Albumin Globulin Albumin/Globulin Ratio Ur Random Sodium U Opiates 300ng/mL cut Negative Ur Oxycodone Screen Negative Urine Methadone Screen Negative Acetaminophen Ur Barbiturates Screen Negative U Tricyclic Antidepress Negative Ur Phencyclidine Scrn Negative Ur Amphetamines Screen Negative U Methamphetamines Scrn Negative Ur MDMA Scrn (Ecstasy) Negative U Benzodiazepines Scrn Negative Urine Cocaine Screen Negative U Marijuana (THC) Screen Negative 11/07/22 11/07/22 11/07/22 13:25 13:25 13:35 WBC RBC Hgb Hct MCV MCH MCHC RDW Plt Count Neut % (Auto) Lymph % (Auto) [place] % (Auto) Eos % (Auto) Baso % (Auto) Neut # (Auto) Lymph # (Auto) [place] # (Auto) Eos # (Auto) Baso # (Auto) Total Counted Seg Neutrophils % Band Neutrophils % Lymphocytes % (Manual) Monocytes % (Manual) Neutrophils # (Manual) RBC Morphology Anisocytosis Macrocytosis ESR PT INR Sodium 123 L Potassium 4.1 Chloride 95 L Carbon Dioxide 26 BUN 24 H Creatinine 0.44 L Estimated GFR > 60 BUN/Creatinine Ratio 54.5 H Glucose 291 H Hgb A1c (Ref Lab) Estim Average Glucose Calcium 7.7 L Phosphorus Magnesium Iron 160 TIBC 211 L % Saturation 76 H Transferrin 123 L Ferritin 62563 H Total Bilirubin 1.3 AST 3634 H ALT 1067 H Alkaline Phosphatase 220 H Total Protein 5.3 L Albumin 2.8 L Globulin 2.5 Albumin/Globulin Ratio 1.1 Ur Random Sodium U Opiates 300ng/mL cut Ur Oxycodone Screen Urine Methadone Screen Acetaminophen Ur Barbiturates Screen U Tricyclic Antidepress Ur Phencyclidine Scrn Ur Amphetamines Screen U Methamphetamines Scrn Ur MDMA Scrn (Ecstasy) U Benzodiazepines Scrn Urine Cocaine Screen U Marijuana (THC) Screen 11/07/22 11/07/22 11/08/22 14:15 16:50 04:13 WBC 6.4 RBC 3.01 L Hgb 10.6 L Hct 30.3 L MCV 100.5 H MCH 35.0 H MCHC 34.9 RDW 15.5 H Plt Count 43 L Neut % (Auto) Not Reportable Lymph % (Auto) Not Reportable [place] % (Auto) Not Reportable Eos % (Auto) Not Reportable Baso % (Auto) Not Reportable Neut # (Auto) Lymph # (Auto) Not Reportable [place] # (Auto) Not Reportable Eos # (Auto) Baso # (Auto) Not Reportable Total Counted 100 Seg Neutrophils % 68.0 Band Neutrophils % 11.0 H Lymphocytes % (Manual) 11.0 L Monocytes % (Manual) 10.0 Neutrophils # (Manual) 5056 RBC Morphology See below Anisocytosis 1+ H Macrocytosis 1+ H ESR PT INR Sodium Potassium Chloride Carbon Dioxide BUN Creatinine Estimated GFR BUN/Creatinine Ratio Glucose Hgb A1c (Ref Lab) Estim Average Glucose Calcium Phosphorus Magnesium Iron TIBC % Saturation Transferrin Ferritin Total Bilirubin AST ALT Alkaline Phosphatase Total Protein Albumin Globulin Albumin/Globulin Ratio Ur Random Sodium 8 L U Opiates 300ng/mL cut Ur Oxycodone Screen Urine Methadone Screen Acetaminophen < 10 Ur Barbiturates Screen U Tricyclic Antidepress Ur Phencyclidine Scrn Ur Amphetamines Screen U Methamphetamines Scrn Ur MDMA Scrn (Ecstasy) U Benzodiazepines Scrn Urine Cocaine Screen U Marijuana (THC) Screen 11/08/22 11/08/22 04:13 04:13 WBC RBC Hgb Hct MCV MCH MCHC RDW Plt Count Neut % (Auto) Lymph % (Auto) [place] % (Auto) Eos % (Auto) Baso % (Auto) Neut # (Auto) Lymph # (Auto) [place] # (Auto) Eos # (Auto) Baso # (Auto) Total Counted Seg Neutrophils % Band Neutrophils % Lymphocytes % (Manual) Monocytes % (Manual) Neutrophils # (Manual) RBC Morphology Anisocytosis Macrocytosis ESR PT 16.2 H INR 1.4 H Sodium 124 L Potassium 3.8 Chloride 95 L Carbon Dioxide 29 BUN 22 H Creatinine 0.43 L Estimated GFR > 60 BUN/Creatinine Ratio 51.2 H Glucose 234 H Hgb A1c (Ref Lab) Estim Average Glucose Calcium 7.4 L Phosphorus 1.6 L Magnesium 1.7 Iron TIBC % Saturation Transferrin Ferritin Total Bilirubin 1.3 AST 2587 H ALT 1059 H Alkaline Phosphatase 236 H Total Protein 5.3 L Albumin 2.6 L Globulin 2.7 Albumin/Globulin Ratio 1.0 Ur Random Sodium U Opiates 300ng/mL cut Ur Oxycodone Screen Urine Methadone Screen Acetaminophen Ur Barbiturates Screen U Tricyclic Antidepress Ur Phencyclidine Scrn Ur Amphetamines Screen U Methamphetamines Scrn Ur MDMA Scrn (Ecstasy) U Benzodiazepines Scrn Urine Cocaine Screen U Marijuana (THC) Screen Exam Vital Signs (past 8 hours): - 11/08/22 02:00 11/08/22 02:00 11/08/22 03:00 Temperature Pulse Rate 105 H 104 H Respiratory Rate 21 25 H Blood Pressure 128/73 Pulse Oximetry 94 95 Oxygen Delivery Method 11/08/22 03:00 11/08/22 03:20 11/08/22 04:00 Temperature Pulse Rate 104 H 101 H Respiratory Rate 26 H 22 Blood Pressure 121/61 Pulse Oximetry 94 95 Oxygen Delivery Method 11/08/22 04:00 11/08/22 04:07 11/08/22 04:15 Temperature 99.4 F Pulse Rate 103 H Respiratory Rate 21 Blood Pressure 117/55 L Pulse Oximetry 95 Oxygen Delivery Method Room Air 11/08/22 05:00 11/08/22 05:00 11/08/22 05:01 Temperature Pulse Rate 101 H 101 H Respiratory Rate 23 22 Blood Pressure 126/72 Pulse Oximetry 96 96 Oxygen Delivery Method 11/08/22 06:00 11/08/22 06:00 11/08/22 06:31 Temperature Pulse Rate 101 H 102 H Respiratory Rate 20 22 Blood Pressure 115/59 L Pulse Oximetry 99 96 Oxygen Delivery Method 11/08/22 07:00 11/08/22 07:00 11/08/22 08:00 Temperature Pulse Rate 101 H Respiratory Rate 17 Blood Pressure 125/78 152/94 H Pulse Oximetry 96 Oxygen Delivery Method 11/08/22 08:00 11/08/22 08:00 Temperature Pulse Rate 104 H Respiratory Rate 20 Blood Pressure Pulse Oximetry 97 Oxygen Delivery Method Room Air Oxygen Delivery Method Room Air Oxygen Flow Rate 0 Narrative Exam Narrative: Comfortably resting in bed. In no distress. Quality TeleICU Stress Ulcer Stress ulcer prophylaxis: yes and on full treatment dose
[2022-11-08] MEDS: THIAMINE 100 MG TABLET PO (09:52)
[2022-11-08] MEDS: SODIUM CHLORIDE 1,000 MG TABLET 1000 MG PO ×3 (10:13→16:43)
[2022-11-08] MEDS: OCTREOTIDE 500 MCG in SODIUM CHLORIDE 0.9% 100 ML 10.1 MCG IV ×2 (10:13→21:28)
[2022-11-08] MEDS: SODIUM,POTASSIUM PHOSPHATES PACKET 2 EACH PO ×2 (10:13→16:36)
[2022-11-08] MEDS: METOCLOPRAMIDE 10 MG/2 ML INJ IV (10:25)
[2022-11-08] MEDS: LORazepam 2 MG/ML INJ 0.5 MG IV (12:57)
--- NOTE | 2022-11-08 15:22 | CM.DPC ---
Addendum entered by Harini Us R.N. 11/08/22 15:44: Abdelrahman, Net Development Manager, is attempting to secure a bed for patient. He had been in touch with Cornelia Vicente, had this DC Oil Fire Specialist speak to [place] at [facility], and confirmed that they do not accept [place]/Medicaid. Suggested to attempt [facility], and [place] [facility], will also attempt [facility], and [place], Abdelrahman is working on this. Attempted to meet with patient today to ask him some questions, but has been sleeping. Notes indicate non-compliance with his insulin and meds for approximately a year. Will attempt to reach out tomorrow, and to check in to see if there is an accepting hospital for patient. Original Note: DCP Cont: Discussed patient during team rounds. Plan is for patient to transfer to a higher level hospital that has a lamp stack developer. Abdelrahman, nurse coordinator, is making calls for bed availability. Some family has been here visiting patient. P: DCP to continue to follow closely. Plan at this time is for patient to transfer to higher level hospital as soon as a bed is secured. Harini Us RN/Form Setter [employer]
--- NOTE | 2022-11-08 16:36 | PC.NURSE ---
All administrations of Acetylcysteine held per Dr. Corona.
--- NOTE | 2022-11-08 16:37 | P.PN_ITS ---
Subjective Subjective Interval history: Patient now eating, without any episodes of hematemesis. Hgb stable. Discussed likely cancer diagnosis with patient and family, and they would like to pursue biopsy and treatment. MR liver ordered to assess liver lesions further. AFP ordered due to potential HCC. Exam Vital Signs (past 8 hours): - 11/08/22 09:00 11/08/22 09:00 11/08/22 10:00 Pulse Rate 104 H Respiratory Rate 15 Blood Pressure 142/80 H 126/75 Pulse Oximetry 96 11/08/22 10:00 11/08/22 11:00 11/08/22 11:00 Pulse Rate 101 H 92 H Respiratory Rate 25 H 21 Blood Pressure 117/70 Pulse Oximetry 98 99 11/08/22 12:00 11/08/22 12:00 11/08/22 13:26 Pulse Rate 91 H 96 H Respiratory Rate 18 Blood Pressure 123/73 Pulse Oximetry 98 99 11/08/22 13:27 11/08/22 13:27 11/08/22 14:00 Pulse Rate 97 H Respiratory Rate Blood Pressure 116/75 108/66 Pulse Oximetry 98 11/08/22 14:00 11/08/22 15:00 11/08/22 15:00 Pulse Rate 94 H 92 H Respiratory Rate Blood Pressure 104/67 Pulse Oximetry 98 98 11/08/22 16:00 11/08/22 16:00 Pulse Rate 95 H Respiratory Rate Blood Pressure 124/77 Pulse Oximetry 99 Oxygen Delivery Method Room Air Oxygen Flow Rate 0 Narrative Exam Narrative: General:? Chronically ill appearing male, comfortable, no acute distress HEENT:? Normocephalic, atraumatic, extraocular muscles intact, oral pharynx is clear and mucous membranes are moist. Neck: supple and symmetric, trachea is midline, no cervical adenopathy. Chest:? Normal AP diameter and contour without kyphoscoliosis, no tachypnea, equal chest rise bilaterally. Lungs:? CTA b/l no wheezing rhonchi or rales. Cardio: tachycardic, regular, no m/r/g Abdomen: soft, mild distension, tenderness epigastrium and RUQ, mild Musculoskeletal:? Muscle strength and tone are equal within normal limits, no deformity. Extremities: 1+ pitting edema b/l LE. Skin:? Pale,? Warm to touch,dry and intact without rashes, ulcerations or petechiae.? Neuro:? Alert and orientated x3,? sensation to touch intact in all extremities, no gross deficits noted of cranial nerves. Psych:? Patient has a well-kept appearance, appropriate affect, mental status attitude thought context and judgment are appropriate for age. Objective Labs 11/08/22 04:13 11/08/22 04:13 Labs: Laboratory Results - last 24 hr 11/06/22 11/07/22 11/07/22 22:33 13:25 13:25 WBC RBC Hgb Hct MCV MCH MCHC RDW Plt Count Neut % (Auto) Lymph % (Auto) [place] % (Auto) Eos % (Auto) Baso % (Auto) Lymph # (Auto) [place] # (Auto) Baso # (Auto) Total Counted Seg Neutrophils % Band Neutrophils % Lymphocytes % (Manual) Monocytes % (Manual) Neutrophils # (Manual) RBC Morphology Anisocytosis Macrocytosis PT INR Sodium Potassium Chloride Carbon Dioxide BUN Creatinine Estimated GFR BUN/Creatinine Ratio Glucose Hgb A1c (Ref Lab) 12.3 H Estim Average Glucose 306 Calcium Phosphorus Magnesium Iron 160 TIBC 211 L % Saturation 76 H Transferrin 123 L Ferritin 81568 H Total Bilirubin AST ALT Alkaline Phosphatase Total Protein Albumin Globulin Albumin/Globulin Ratio Ur Random Sodium 11/07/22 11/08/22 11/08/22 16:50 04:13 04:13 WBC 6.4 RBC 3.01 L Hgb 10.6 L Hct 30.3 L MCV 100.5 H MCH 35.0 H MCHC 34.9 RDW 15.5 H Plt Count 43 L Neut % (Auto) Not Reportable Lymph % (Auto) Not Reportable [place] % (Auto) Not Reportable Eos % (Auto) Not Reportable Baso % (Auto) Not Reportable Lymph # (Auto) Not Reportable [place] # (Auto) Not Reportable Baso # (Auto) Not Reportable Total Counted 100 Seg Neutrophils % 68.0 Band Neutrophils % 11.0 H Lymphocytes % (Manual) 11.0 L Monocytes % (Manual) 10.0 Neutrophils # (Manual) 5056 RBC Morphology See below Anisocytosis 1+ H Macrocytosis 1+ H PT 16.2 H INR 1.4 H Sodium Potassium Chloride Carbon Dioxide BUN Creatinine Estimated GFR BUN/Creatinine Ratio Glucose Hgb A1c (Ref Lab) Estim Average Glucose Calcium Phosphorus Magnesium Iron TIBC % Saturation Transferrin Ferritin Total Bilirubin AST ALT Alkaline Phosphatase Total Protein Albumin Globulin Albumin/Globulin Ratio Ur Random Sodium 8 L 11/08/22 04:13 WBC RBC Hgb Hct MCV MCH MCHC RDW Plt Count Neut % (Auto) Lymph % (Auto) [place] % (Auto) Eos % (Auto) Baso % (Auto) Lymph # (Auto) [place] # (Auto) Baso # (Auto) Total Counted Seg Neutrophils % Band Neutrophils % Lymphocytes % (Manual) Monocytes % (Manual) Neutrophils # (Manual) RBC Morphology Anisocytosis Macrocytosis PT INR Sodium 124 L Potassium 3.8 Chloride 95 L Carbon Dioxide 29 BUN 22 H Creatinine 0.43 L Estimated GFR > 60 BUN/Creatinine Ratio 51.2 H Glucose 234 H Hgb A1c (Ref Lab) Estim Average Glucose Calcium 7.4 L Phosphorus 1.6 L Magnesium 1.7 Iron TIBC % Saturation Transferrin Ferritin Total Bilirubin 1.3 AST 2587 H ALT 1059 H Alkaline Phosphatase 236 H Total Protein 5.3 L Albumin 2.6 L Globulin 2.7 Albumin/Globulin Ratio 1.0 Ur Random Sodium PFSH Medical History (Updated 11/06/22 @ 23:02 by Philip Rudolph MD) Alcoholic cirrhosis of liver Dental infection Hemochromatosis IDDM (insulin dependent diabetes mellitus) Surgical History History of appendectomy History of cholecystectomy Social History household members: children Smoking Status: Current every day smoker Assessment & Plan Assessment & Plan narrative: 1. 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 - now off of insulin infusion, continue on 20 U BID lantus, 5 U TID AC, and sliding scale, adjust as needed. 2. Sepsis secondary to Gram negative bacteremia (PCR with klebsiella and enterobacter) with elevated bilirubin, Acute metabolic encephalopathy, thrombocytopenia - suspect abdominal source of bacteremia. Unclear if secondary to necrotic renal mass seen on CT, or hepatobiliary in nature at this time, no ascites large enough to tap to rule out SBP. - continue cefepime 2g q8 hr for now, narrow based on cultures -ammonia level 22, encephalopathy has improved. -per GI at [facility], obtain MRCP to rule out cholangitis as source of klebsiella bacteremia 3. Acute blood loss anemia, with hematemesis and melena - concern for varices, will need EGD and colonoscopy as patient has not had one previously. Timing unclear with sepsis at this time. Colonoscopy recommended in the setting of multiple liver lesions to rule out metastatic malignancy from colon (less likely). Defer to higher level institution. - continue to follow h/h currently 12.8> 12.4 > 10.4>10.6 - IV PPI BID, octreotide infusion 4. Alcoholic cirrhosis, with acute transaminitis due to likely liver lesions now improving - rapid rise on 01/07 with ALT increasing to 1067, AST > 3634 a 10 fold increase in under 12 hours . Unclear if related to multiple liver lesions, bacteremia, or other etiology. He reports minimal EtOH intake, though this is another possibility. - he is not hypotensive at this time to suggest ischemic shock. - tylenol level <10 - ferritin 10,200, ESR 25 - Urine drug screen negative - Discussed with GI at [facility], recommended transfer to center with hepatology and possible transplant services. Although now LFT's downtrending and INR stable at 1.4 so UW denied. - Child's class B, MELD-Na of 22. - AFP level pending - abd US negative for portal venous thrombosis 5. Acute hyponatremia - Na 124, has been receiving IV fluids and +3L since admission so likely SIADH - fluid restriction and salt tabs 6. L renal mass, Hepatic lesions concerning for RCC with mets vs primary HCC - possible RCC with hepatic mets, possible necrotic area contributing to bacteremia - recommend IR biopsy, though timing unclear in setting of bacteremia. - transfer to higher level of care for further evaluation. 7. Hypophosphatemia - phos 1.6 - replace via po supplement Code: Full Dispo: Pending transfer for higher level of care.
--- NOTE | 2022-11-08 20:46 | PM.ICURNDS ---
- :: This patient was seen via real time interactive two-way audiovisual telecommunication. Note: Pt comfortable in bed, feels better, good PO intake and normal BM today, liver enzymes peaked and starting to improve
[2022-11-09] VITALS (24 sets, daily range): BP systolic 107–131; BP diastolic 66–85; PULSE 88–95; RESP 16–19; TEMP 36.2–37.1; O2SAT 91–99
[2022-11-09] MEDS: CEFEPIME 2 GM in SODIUM CHLORIDE 0.9% 100 ML IV ×3 (00:10→15:05)
[2022-11-09 04:51] LABS: Hematocrit 29.5 % (41-53); Hemoglobin 10.3 g/dL (13.5-17.5); Mean Corpuscular HGB Conc 34.8 % (30-36); Mean Corpuscular Hemoglobin 35.2 PG (26-34); Mean Corpuscular Volume 101.1 fL (80-100); Platelet Count 46 X10^3/uL (150-400); Red Blood Cell Count 2.92 X10^6/uL (4.5-5.9); Red Cell Distribution Width 15.9 % (11.6-14.8); White Blood Cell Count 6.5 X10^3/uL (4.5-11.0)
[2022-11-09 04:52] LABS: INR 1.5 (0.9-1.3); Prothrombin Time 16.7 SECONDS (10.1-12.7)
[2022-11-09 04:53] LABS: Add Manual Diff / Slide Review YES
[2022-11-09 04:58] LABS: Albumin 2.6 g/dL (3.5-5.0); Albumin Globulin Ratio 0.9 (1.0-2.8); Alkaline Phosphatase 207 U/L (38-126); BUN Creatinine Ratio 46.7 (6-22); Bilirubin Total 1.6 mg/dL (0.2-1.3); Blood Urea Nitrogen 21 mg/dL (9-20); Calcium 7.3 mg/dL (8.4-10.2); Carbon Dioxide 29 mmol/L (22-32); Chloride 95 mmol/L (98-107); Estimated Glomerular Filt Rate > 60 mL/min (>60); Globulin 2.8 g/dL (1.7-4.1); Glucose 219 mg/dL (70-100); HEMOLYSIS < 15 (0-50); Magnesium 1.8 mg/dL (1.6-2.3); Phosphorous 2.1 mg/dL (2.5-4.5); Potassium 3.6 mmol/L (3.4-5.1); Sodium 126 mmol/L (137-145); Total Protein 5.4 g/dL (6.3-8.2)
[2022-11-09 05:04] LABS: Aspartate Aminotransferase 1111 IU/L (17-59)
[2022-11-09 05:05] LABS: Alanine Aminotransferase 782 IU/L (<50)
[2022-11-09] MEDS: OCTREOTIDE 500 MCG in SODIUM CHLORIDE 0.9% 100 ML 10.1 MCG IV ×2 (07:09→17:07)
[2022-11-09 07:38] LABS: Neutrophils Absolute Manual 5005 /uL (3000-5900); Total Cells Counted 100
[2022-11-09 07:39] LABS: Macrocytosis 1+
[2022-11-09 07:40] LABS: Anisocytosis 1+
[2022-11-09] MEDS: MULTIVITAMIN 1 TABLET 1 TAB PO (08:53)
[2022-11-09] MEDS: INSULIN GLARGINE 100 UNIT/ML 3ML PEN 20 UNIT SUBCUT ×2 (08:53→20:50)
[2022-11-09] MEDS: THIAMINE 100 MG TABLET PO (08:53)
[2022-11-09] MEDS: FOLIC ACID 1 MG TABLET PO (08:53)
[2022-11-09] MEDS: INSULIN LISPRO 100 UNIT/ML 3ML VIAL SUBCUT ×7 (08:53→20:51)
[2022-11-09] MEDS: PANTOPRAZOLE 40 MG VIAL IV ×2 (08:55→20:50)
[2022-11-09] MEDS: SODIUM CHLORIDE 1,000 MG TABLET 1000 MG PO ×3 (08:56→17:07)
[2022-11-09] MEDS: SODIUM CHLORIDE 0.9% FLUSH 10 ML IV ×2 (08:59→20:51)
--- NOTE | 2022-11-09 09:02 | CM.DANOTE ---
DCP: Case received, EMR reviewed and met with patient. Introduced self and role. Was able to obtain information in order to complete DCP assessment. Patient is a 52 year old male who admitted on 11/06, in the evening, to the care of the hospitalist team. PCP: [facility] in [place], Dr. Reed was primary, retired, unsure of current provider. Payer: confirmed: [employer]. Patient came to the hospital via private vehicle secondary to having abdominal pain, as described as more epigastric right upper quadrant. Patient has history of diabetes, is insulin dependent. Patient also indicated he had been vomiting on and off for some time. He also complained of weakness. Patient described a weight loss of 40 pounds. Patient had also indicated that he was having a hard time getting his insulin supplies, not regularly taking his insulin. He can't remember the name of his provider, but is established at [facility] in [place]. Patient denies regular ETOH use, uses marijuana, no other illicit drugs. Patient was noted to be in DKA. Patient also is noted to have liver and renal mass. Hospitalist is working on getting patient transferred to higher level hospital where there is a teacher aide clerical. [facility] has declined, they are not contracted with [facility]. Met with patient in his room today. He was sitting up in bed, having his breakfast. He was smiling, alert. Confirmed that he resides with two of his daughters, he has 5 total. He lives here in [place], one is 13, the other is in her 20s, watching the 13 year old. He is no longer employed. He does still drive. Asked him about his primary care provider, confirmed that his medical care is at [facility], was seeing Dr. Reed, she retired, unclear as to who they connected him with. Stated that he uses [facility] here in town, and was having trouble getting his insulin supplies. Asked patient if he understands what is going on with him, stated, I have cancer, and they are trying to send me to an acute care hospital. Did discuss primary care providers. Patient is interested in establishing with local providers. Let him know that this [place] enterprise resource planner is familiar with [facility], and can obtain information for him, since they are accepting new patients, and do take his insurance. P: DCP to follow closely. Checked in with nurse, Abdelrahman, and he is still working on getting patient transferred, so far, is awaiting answer from [facility] in [place]. Will still provide patient with medical resources. Harini Us RN/Powdered Metal Supervisor Discharge Planning/Care Management CM Discharge Assessment Start: 11/09/22 09:00 Freq: Status: Active Protocol: Document 11/09/22 09:00 (Rec: 11/09/22 09:02 [email or web address]) Discharge Planning Assessment Assigned Case Planner Harini Us RN/Powdered Metal Supervisor Advance Directives? No History Provided By Patient,Medical Record Prior Living Arrangements Apartment/Condo Household Members children Type of transporation used prior to Drives own vehicle admit Independent with ADL's Yes Is patient alert and oriented? Yes Caregiver for Another Yes: Has a 13 year old daughter Barriers to Discharge Yes Comment Hospitalist is attempting to get patient transferred to a higher level hospital, barrier is insurance and bed availabilities. Discharge Plan Transfer to Higher Level of Care Transportation Arrangement Ambulance Referrals Initiated Other Whiteboard Updated in Patient Room with Yes name and ext. # of Case Planner Review Status In Process Next Review Type Continued Stay Review
[2022-11-09] MEDS: SODIUM,POTASSIUM PHOSPHATES PACKET 2 EACH PO (11:58)
--- NOTE | 2022-11-09 14:00 | DI.MRI.S_ITS ---
PROCEDURE: MR ABDOMEN WO CON INDICATIONS: KLEBSIELLA BACTEREMAIA R/O CHOLEDOCHOLITHIASIS TECHNIQUE: Coronal HASTE through the abdomen, axial 2-D FLASH in- and [id number], and breath-hold T2 FSE with fat saturation through the biliary system and pancreas. Oblique coronal and axial thin-slice HASTE, radial thick-slab HASTE centered on the extrahepatic bile ducts. Intravenous secretin: Not requested. COMPARISON: [facility], CT, CT CHEST ABD PEL W CON, 11/06/2022, 18:40. [facility], US, US ABDOMEN LIMITED, 11/07/2022, 16:02. [facility], MR, MR ABDOMEN LIVER PROTOCOL, 11/08/2022, 13:03. FINDINGS: Image quality: Exam is degraded by patient compliance to breathing protocol increasing motion and producing artifact Pancreas and biliary system: Mild central biliary ductal dilation, a normal finding status post cholecystectomy with the common hepatic duct measuring 4 millimeters.. Pancreas is normal in morphology, without adjacent soft tissue edema. Pancreatic duct is normal in caliber, without developmental anomalies. Gallbladder is surgically absent. . Other solid organs: Liver is normal in size. Diffusely heterogeneous appearance of the spleen consistent with irregularity seen on CT abdomen pelvis concerning for metastatic disease. Spleen is normal in size. No adrenal nodules. Within the left kidney there is a heterogeneous cystic mass with mixed solid fluid components measuring 3.3 by 3.1 x 3 centimeters. Nodes and vessels: No retroperitoneal or mesenteric adenopathy by size criteria. Aorta and inferior vena cava are normal in size. Bowel and peritoneum: Unenhanced bowel loops are normal in caliber. Moderate free fluid. Lung bases: No basal pleural effusions. Heart size is normal. Bones and soft tissues: No ventral hernias. Bone marrow is of normal overall signal. IMPRESSION: No choledocholithiasis or biliary obstruction identified. Left renal mass concerning for neoplastic etiology. Heterogeneous signal throughout the liver concerning for neoplastic or metastatic disease. Dictated by: Aaron Guzman M.D. on 11/09/2022 at 14:17 Approved by: Aaron Guzman M.D. on 11/09/2022 at 14:28
[2022-11-09] MEDS: LORazepam 2 MG/ML INJ 0.5 MG IV (14:20)
[2022-11-09 16:13] LABS: COVID19 - ADMIT (NP swab/PCR) Negative (Negative)
[2022-11-09] MEDS: cefTRIAXone 2,000 MG in SODIUM CHLORIDE 0.9% 100 ML 200 MG IV (17:07)
--- NOTE | 2022-11-09 19:04 | PM.PN.1 ---
Subjective Subjective Interval history: Patient feeling well overall. He wants everthing done about his possible liver and kidney cancer saying I have a 13yo daughter. Spoke with multiple other hospitals, was denied at [facility] saying he needs tertiary care center. Spoke with and [facility] and he was accepted and both pending bed availability. Exam Vital Signs (past 8 hours): - 11/09/22 12:00 11/09/22 12:00 11/09/22 13:00 Temperature 97.1 F L Pulse Rate 90 Respiratory Rate 17 Blood Pressure 122/77 125/77 Pulse Oximetry 98 11/09/22 13:00 11/09/22 14:00 11/09/22 14:00 Temperature Pulse Rate 89 90 Respiratory Rate Blood Pressure 129/80 Pulse Oximetry 98 99 11/09/22 15:08 11/09/22 15:08 11/09/22 16:00 Temperature Pulse Rate 92 H Respiratory Rate Blood Pressure 114/76 129/77 Pulse Oximetry 97 11/09/22 16:00 11/09/22 17:00 11/09/22 17:00 Temperature 97.1 F L Pulse Rate 90 89 Respiratory Rate 17 Blood Pressure 128/85 Pulse Oximetry 99 99 Oxygen Delivery Method Room Air Oxygen Flow Rate 0 Narrative Exam Narrative: General:? Chronically ill appearing male, comfortable, no acute distress HEENT:? Normocephalic, atraumatic, extraocular muscles intact, oral pharynx is clear and mucous membranes are moist. Neck: supple and symmetric, trachea is midline, no cervical adenopathy. Chest:? Normal AP diameter and contour without kyphoscoliosis, no tachypnea, equal chest rise bilaterally. Lungs:? CTA b/l no wheezing rhonchi or rales. Cardio: tachycardic, regular, no m/r/g Abdomen: soft, mild distension, tenderness epigastrium and RUQ, mild Musculoskeletal:? Muscle strength and tone are equal within normal limits, no deformity. Extremities: 1+ pitting edema b/l LE. Skin:? Pale,? Warm to touch,dry and intact without rashes, ulcerations or petechiae.? Neuro:? Alert and orientated x3,? sensation to touch intact in all extremities, no gross deficits noted of cranial nerves. Psych:? Patient has a well-kept appearance, appropriate affect, mental status attitude thought context and judgment are appropriate for age. Objective Labs 08/13/23 04:12 11/09/22 04:12 Labs: Laboratory Results - last 24 hr 11/06/22 11/06/22 11/09/22 16:50 17:33 04:12 WBC 6.5 RBC 2.92 L Hgb 10.3 L Hct 29.5 L MCV 101.1 H MCH 35.2 H MCHC 34.8 RDW 15.9 H Plt Count 46 L Neut % (Auto) Not Reportable Lymph % (Auto) Not Reportable [place] % (Auto) Not Reportable Eos % (Auto) Not Reportable Baso % (Auto) Not Reportable Lymph # (Auto) Not Reportable [place] # (Auto) Not Reportable Baso # (Auto) Not Reportable Total Counted 100 Seg Neutrophils % 74.0 H Band Neutrophils % 3.0 Lymphocytes % (Manual) 12.0 L Monocytes % (Manual) 11.0 Neutrophils # (Manual) 5005 RBC Morphology See below Anisocytosis 1+ H Macrocytosis 1+ H PT INR VBG pH 7.40 VBG pCO2 36.1 L VBG pO2 42 VBG HCO3 22 L VBG Total CO2 23 L VBG O2 Saturation 78 H VBG Base Excess -3.0 L FiO2 21 Sodium Potassium Chloride Carbon Dioxide BUN Creatinine Estimated GFR BUN/Creatinine Ratio Glucose Calcium Phosphorus Magnesium Total Bilirubin AST ALT Alkaline Phosphatase Total Protein Albumin Globulin Albumin/Globulin Ratio A.calcoaceticus-baumannii cmplx PCR Not detected Bacteroides fragilis Not detected Nat albicans (PCR) Not detected Nat auris (PCR) Not detected C. glabrata (PCR) Not detected C. krusei (PCR) Not detected C. parapsilosis (PCR) Not detected C. tropicalis (PCR) Not detected SARS-CoV-2 (PCR) C. neoform/gattii (PCR) Not detected Enterobacterales (PCR) Detected H E. cloacae complex PCR Not detected Enterococc faecalis PCR Not detected Enterococc faecium PCR Not detected E. coli (PCR) Not detected H. influenzae (PCR) Not detected Klebsiella aerogenes (PCR) Not detected Klebsiella oxytoca PCR Not detected Klebsiella pneumoniae Detected H List. monocytogenes PCR Not detected N. meningitidis (PCR) Not detected Proteus species (PCR) Not detected Salmonella spp. (PCR) Not detected Serratia marcescens PCR Not detected Staphylococcus sp PCR Not detected Staph aureus (PCR) Not detected mcr-1 Colistin Res Gene PCR Not detected Staph epidermidis (PCR) Not detected Staph lugdunensis PCR Not detected S. maltophilia (PCR) Not detected Streptococcus sp PCR Not detected Group A Strep (PCR) Not detected Strep agalactiae (PCR) Not detected Strep pneumoniae (PCR) Not detected P. aeruginosa (PCR) Not detected blaIMP Car res Gene PCR Not detected KPC-Carbap Res Gene PCR Not detected blaNDM Car Res Gene PCR Not detected OXA-48 Carbapenem Resis Gene (PCR) Not detected blaVIM Car Res Gene PCR Not detected CTX-M Gene Resistance (PCR) Not detected 11/09/22 11/09/22 11/09/22 04:12 04:12 15:42 WBC RBC Hgb Hct MCV MCH MCHC RDW Plt Count Neut % (Auto) Lymph % (Auto) [place] % (Auto) Eos % (Auto) Baso % (Auto) Lymph # (Auto) [place] # (Auto) Baso # (Auto) Total Counted Seg Neutrophils % Band Neutrophils % Lymphocytes % (Manual) Monocytes % (Manual) Neutrophils # (Manual) RBC Morphology Anisocytosis Macrocytosis PT 16.7 H INR 1.5 H VBG pH VBG pCO2 VBG pO2 VBG HCO3 VBG Total CO2 VBG O2 Saturation VBG Base Excess FiO2 Sodium 126 L Potassium 3.6 Chloride 95 L Carbon Dioxide 29 BUN 21 H Creatinine 0.45 L Estimated GFR > 60 BUN/Creatinine Ratio 46.7 H Glucose 219 H Calcium 7.3 L Phosphorus 2.1 L Magnesium 1.8 Total Bilirubin 1.6 H AST 1111 H ALT 782 H Alkaline Phosphatase 207 H Total Protein 5.4 L Albumin 2.6 L Globulin 2.8 Albumin/Globulin Ratio 0.9 L A.calcoaceticus-baumannii cmplx PCR Bacteroides fragilis Nat albicans (PCR) Nat auris (PCR) C. glabrata (PCR) C. krusei (PCR) C. parapsilosis (PCR) C. tropicalis (PCR) SARS-CoV-2 (PCR) Negative C. neoform/gattii (PCR) Enterobacterales (PCR) E. cloacae complex PCR Enterococc faecalis PCR Enterococc faecium PCR E. coli (PCR) H. influenzae (PCR) Klebsiella aerogenes (PCR) Klebsiella oxytoca PCR Klebsiella pneumoniae List. monocytogenes PCR N. meningitidis (PCR) Proteus species (PCR) Salmonella spp. (PCR) Serratia marcescens PCR Staphylococcus sp PCR Staph aureus (PCR) mcr-1 Colistin Res Gene PCR Staph epidermidis (PCR) Staph lugdunensis PCR S. maltophilia (PCR) Streptococcus sp PCR Group A Strep (PCR) Strep agalactiae (PCR) Strep pneumoniae (PCR) P. aeruginosa (PCR) blaIMP Car res Gene PCR KPC-Carbap Res Gene PCR blaNDM Car Res Gene PCR OXA-48 Carbapenem Resis Gene (PCR) blaVIM Car Res Gene PCR CTX-M Gene Resistance (PCR) [facility] Medical History (Updated 11/06/22 @ 23:02 by Philip Rudolph MD) Alcoholic cirrhosis of liver Dental infection Hemochromatosis IDDM (insulin dependent diabetes mellitus) Surgical History History of appendectomy History of cholecystectomy Social History household members: children Smoking Status: Current every day smoker Assessment & Plan Assessment & Plan narrative: 1. 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 - now off of insulin infusion, continue on 20 U BID lantus, 5 U TID AC, and sliding scale, adjust as needed. 2. Sepsis secondary to Gram negative bacteremia (PCR with klebsiella and enterobacter) with elevated bilirubin, Acute metabolic encephalopathy, thrombocytopenia - suspect abdominal source of bacteremia. Unclear if secondary to necrotic renal mass seen on CT, or hepatobiliary in nature at this time, no ascites large enough to tap to rule out SBP. - received cefepime 2g q8 hr, narrowed to 2g rocephin daily -ammonia level 22, encephalopathy has resolved. -per GI at [facility], [facility] MRCP to rule out cholangitis as source of klebsiella bacteremia -MRCP on 11/09 without choledocho or evidence of cholangitis 3. Acute blood loss anemia, with hematemesis and melena, stable - concern for varices, will need EGD and colonoscopy as patient has not had one previously. Timing unclear with sepsis at this time. Colonoscopy recommended in the setting of multiple liver lesions to rule out metastatic malignancy from colon (less likely). Defer to higher level institution. - continue to follow h/h currently 12.8> 12.4 > 10.4>10.6>10.3 - IV PPI BID, octreotide infusion - Hgb remains stable 4. Decompensated liver cirrhosis, with acute transaminitis due to likely liver lesions, now improving - rapid rise on 01/07 with ALT increasing to 1067, AST > 3634 a 10 fold increase in under 12 hours . Unclear if related to multiple liver lesions, bacteremia, or other etiology. He reports minimal EtOH intake, though this is another possibility. - he is not hypotensive at this time to suggest ischemic shock. - tylenol level <10. NAC held due to D5W potentially worsening DKA. - ferritin 10,200, ESR 25 - Urine drug screen negative - Discussed with GI at [facility] and denied acceptance given complexity, recommended transfer to center with hepatology and possible transplant services. - Child's class B, MELD-Na of 22. - dedicated liver MRI on 11/08 with multiple liver lesions, largest being 4.0. Possible mets from renal mass vs primary HCC. - AFP level pending - abd US negative for portal venous thrombosis - spoke with Dr. Eric Monroy hepatology at [facility] on 11/09 who said not liver transplant candidate, but can transfer for EGD and biopsy of masses - spoke with Dr. Noel, hospitalist at [facility] who accepted patient pending bed availability which may be 48-72hrs - spoke with Dr. Zarate transplant loss prevention agent at who said not transplant candidate but recommended transfer to for higher level of care - spoke with Dr. Ashley Kowalski, hospitalist at who accepted for transfer pending bed availability 5. Acute hyponatremia - Na 124, has been receiving IV fluids and +3L since admission so likely SIADH - fluid restriction and salt tabs - Na improving to 126 6. L renal mass, Hepatic lesions concerning for RCC with mets vs primary HCC - possible RCC with hepatic mets, possible necrotic area contributing to bacteremia - recommend IR biopsy, though timing unclear in setting of bacteremia. - transfer to higher level of care for further evaluation. 7. Hypophosphatemia - phos 1.6 - replace via po supplement 8. Renal mass, likely renal cell carcinoma - CT and MRI with necrotic left renal mass measuring 3.4cm, highly suspicious for RCC - spoke with urology at [facility] who said nephrectomy unlikely if mets, warrants biopsy Code: Full code Dispo: Pending transfer for higher level of care. Accepted at both [facility] and but waiting on bed. Likely 2-3 days.
[2022-11-10] VITALS: BP 124/80; PULSE 88; RESP 17; TEMP 37.1; O2SAT 99
--- NOTE | 2022-11-10 00:21 | PC.NURSE ---
Patient is alert and oriented. Breath sounds CTA with RA sat of 97%. HRR. Denies nausea. BT present and passing flatus; abdomen is distended and tender in RUQ on palpation. Voiding per urinal and denies dysuria. Is able to to turn himself in bed. Steady on feet but reports weakness and has had recent falls related to neuropathy in bilateral LE so instructed to have SBA when getting out of bed and verbalizes understanding. CIWA scores have been and still are 0. Declines use of SCD's so reminded to ankle wave. Remains on fluid restriction and has 1+ bilateral LE edema. Fall risk score is high but agreeable to calling for assist at night so bed alarm is not currently [id number].
[2022-11-10] MEDS: OCTREOTIDE 500 MCG in SODIUM CHLORIDE 0.9% 100 ML 10.1 MCG IV ×2 (04:35→15:37)
[2022-11-10 05:33] LABS: INR 1.3 (0.9-1.3); Prothrombin Time 14.9 SECONDS (10.1-12.7)
[2022-11-10 05:34] LABS: Add Manual Diff / Slide Review NO; Basophils Absolute Auto 0 /uL (0-100); Basophils Percent Auto 0.4 % (0-2); Eosinophils Absolute Auto 0 /uL (0-450); Eosinophils Percent Auto 0.5 % (2-4); Hematocrit 28.6 % (41-53); Hemoglobin 9.9 g/dL (13.5-17.5); Lymphocytes Absolute Auto 600 /uL (1100-4500); Lymphocytes Percent Auto 11.1 % (25-40); Mean Corpuscular HGB Conc 34.7 % (30-36); Mean Corpuscular Hemoglobin 35.4 PG (26-34); Mean Corpuscular Volume 101.9 fL (80-100); Monocytes Absolute Auto 900 /uL (0-900); Monocytes Percent Auto 16.5 % (3-14); Neutrophils Absolute Auto 4000 /uL (1500-7000); Neutrophils Percent Auto 71.5 % (50-75); Platelet Count 55 X10^3/uL (150-400); Red Cell Distribution Width 16.1 % (11.6-14.8); White Blood Cell Count 5.6 X10^3/uL (4.5-11.0)
[2022-11-10 05:39] LABS: Alanine Aminotransferase 506 IU/L (<50); Albumin 2.4 g/dL (3.5-5.0); Albumin Globulin Ratio 0.9 (1.0-2.8); Alkaline Phosphatase 195 U/L (38-126); Aspartate Aminotransferase 444 IU/L (17-59); BUN Creatinine Ratio 42.2 (6-22); Bilirubin Total 1.2 mg/dL (0.2-1.3); Blood Urea Nitrogen 19 mg/dL (9-20); Calcium 7.2 mg/dL (8.4-10.2); Carbon Dioxide 27 mmol/L (22-32); Chloride 99 mmol/L (98-107); Estimated Glomerular Filt Rate > 60 mL/min (>60); Globulin 2.8 g/dL (1.7-4.1); Glucose 145 mg/dL (70-100); HEMOLYSIS < 15 (0-50); Phosphorous 2.3 mg/dL (2.5-4.5); Potassium 3.3 mmol/L (3.4-5.1); Sodium 129 mmol/L (137-145); Total Protein 5.2 g/dL (6.3-8.2)
[2022-11-10 07:55] VITALS: BP 134/88; PULSE 86; RESP 18; TEMP 37.1; O2SAT 98
[2022-11-10] MEDS: FOLIC ACID 1 MG TABLET PO (08:21)
[2022-11-10] MEDS: SODIUM CHLORIDE 1,000 MG TABLET 1000 MG PO ×3 (08:21→17:05)
[2022-11-10] MEDS: PANTOPRAZOLE 40 MG VIAL IV (08:21)
[2022-11-10] MEDS: MULTIVITAMIN 1 TABLET 1 TAB PO (08:21)
[2022-11-10] MEDS: THIAMINE 100 MG TABLET PO (08:21)
[2022-11-10] MEDS: INSULIN GLARGINE 100 UNIT/ML 3ML PEN 20 UNIT SUBCUT (08:22)
[2022-11-10] MEDS: INSULIN LISPRO 100 UNIT/ML 3ML VIAL SUBCUT ×5 (08:23→17:05)
[2022-11-10] MEDS: SODIUM CHLORIDE 0.9% FLUSH 10 ML IV (08:24)
[2022-11-10] MEDS: POTASSIUM CHLORIDE 20 MEQ TAB 40 MEQ PO ×2 (10:40→15:38)
[2022-11-10] MEDS: SODIUM,POTASSIUM PHOSPHATES PACKET 2 EACH PO (10:40)
[2022-11-10] MEDS: ONDANSETRON 4 MG/2 ML INJ IV (10:44)
[2022-11-10 12:44] LABS: Alpha Fetoprotein 1.8 ng/mL (0.0-8.4)
[2022-11-10 15:35] VITALS: BP 129/81; PULSE 86; RESP 18; TEMP 36.7; O2SAT 97
--- NOTE | 2022-11-10 15:59 | PM.DS.1 ---
History of Present Illness History of Present Illness Date Patient Seen: 11/06/22 Time Patient Seen: 22:52 Chief complaint: ABD pain, Vomiting blood Narrative: Per admitting physician: The pt is a very non-compliant 52 yo diabetic who presented to the ER tonight due to RUQ pain which he states has been present for the past year off & on. He describes it as sharp, intermettent, rated a 2-5 out of 10, non-radiating and often associated with hematemesis. Tonight he started having the pain which was worse than normal and associated with several episodes of hemetemesis that was worse than normal. Ronan reports that he has not taken his insulin for over a year due to poor compliance and f/up with PCP, he used to have a pump but no longer does for unknown reasons. The pt also states that he has had a 45 pound weight loss due to lack of appetite, and no insulin over the past 6 months. There has been no melana, BRBPR, night sweats, CP, or falling. Discharge Providers Provider Date of admission: 11/06/22 21:54 Discharge Date: 11/10/22 Primary care physician: Rakan Reed MD Consults: 11/06/22 22:49 Consult to Physician Routine Comment: Consulting Provider: Lea Vivar Reason for consultation: DKA Has provider been notified: No 11/06/22 23:14 Consult to Tele-turning machine set up operator Routine Comment: Consulting Provider: Alcides [employer] Reason for consultation: Rehab Director services Has provider been notified: Yes 11/06/22 23:40 Consult to [facility] - Talent Acquisition Coordinator Routine Comment: unable to obtain medications Discharge provider: Abiodun Vargas MD Summary Hospital Course Discharge Diagnosis: 1. DKA 2. Sepsis secodnary to gram negative bacteremia, with Klebsiella 3. Acute blood loss anemia, concerning for hematemesis 4. Acute encephalopathy 5. Cirrhosis, with acute hepatitis 6. Hyponatremia 7. Left renal mass 8. Multiple hepatic masses Hospital Course: Mr. Looney was initially admitted to the hospital with DKA. He was on an insulin infusion, but this was able to be quickly titrated off and he was placed on lantus 20U BID, and insulin 5U TID with meals. In addition he was found to be bacteremic on initial blood cultures. One of his draws was positive for Klebsiella, the other blood culture was pending, but also gram negative bacteremia and presumed to be the same bacteria. He was ordered for cefepime and then narrowed to ceftriaxone based on initial cultures that returned. He had abdominal imaging done which showed no significant ascites. He was found to have a large necrotic renal mass and MRCP showed multiple hepatic masses both concerning for malignancy and possibly the source of bacteremia. He did not have evidence of cholangitis/choledocholithiasis on imaging. Prior to arrival to the hospital he did endorse vomiting blood and coffee ground emesis, but this did not occur further in the hospital. He has a history of varices, and he does not think these have been intervened upon. EGD was not able to be performed at this hospital. He was placed on IV PPI and octreotide. His hemoglobin was initially in the 12s, and then remained stable in the mid 10s He did have encephalopathy on admission which improved with antibiotics, his ammonia level was 22 and he did not receieve lactulose. His MELD-Na on admission was 22, fco class driscoll 2. He was also found to have acute hyponatremia, etiology was unclear if SIADH, he was placed on fluid restriction and salt tabs. Ultimately he was transferred for further workup for his possible malignancy and possible blood loss anemia. He was transferred to [facility]. Exam Vital Signs (past 8 hours): - 11/10/22 15:35 Temperature 98.1 F Pulse Rate 86 Respiratory Rate 18 Blood Pressure 129/81 Pulse Oximetry 97 Oxygen Flow Rate 0 Oxygen Delivery Method Room Air Oxygen Flow Rate 0 Narrative Exam Narrative: General:? Chronically ill appearing male Lungs:?clear bilaterally Cardio: regular rate and rhythm Abdomen: soft, mild distension, tenderness epigastrium and RUQ, mild Extremities: 1+ pitting edema bilateral Objective Labs 11/10/22 04:54 11/10/22 04:54 Labs: Laboratory Results - last 24 hr 11/08/22 11/09/22 11/10/22 04:13 15:42 04:54 WBC 5.6 RBC 2.80 L Hgb 9.9 L Hct 28.6 L MCV 101.9 H MCH 35.4 H MCHC 34.7 RDW 16.1 H Plt Count 55 L Neut % (Auto) 71.5 Lymph % (Auto) 11.1 L [place] % (Auto) 16.5 H Eos % (Auto) 0.5 L Baso % (Auto) 0.4 Neut # (Auto) 4000 Lymph # (Auto) 600 L [place] # (Auto) 900 Eos # (Auto) 0 Baso # (Auto) 0 PT INR Sodium Potassium Chloride Carbon Dioxide BUN Creatinine Estimated GFR BUN/Creatinine Ratio Glucose Calcium Phosphorus Magnesium Total Bilirubin AST ALT Alkaline Phosphatase Total Protein Albumin Globulin Albumin/Globulin Ratio Alpha Fetoprotein 1.8 SARS-CoV-2 (PCR) Negative 11/10/22 11/10/22 04:54 04:54 WBC RBC Hgb Hct MCV MCH MCHC RDW Plt Count Neut % (Auto) Lymph % (Auto) [place] % (Auto) Eos % (Auto) Baso % (Auto) Neut # (Auto) Lymph # (Auto) [place] # (Auto) Eos # (Auto) Baso # (Auto) PT 14.9 H INR 1.3 Sodium 129 L Potassium 3.3 L Chloride 99 Carbon Dioxide 27 BUN 19 Creatinine 0.45 L Estimated GFR > 60 BUN/Creatinine Ratio 42.2 H Glucose 145 H Calcium 7.2 L Phosphorus 2.3 L Magnesium 2.0 Total Bilirubin 1.2 AST 444 H ALT 506 H Alkaline Phosphatase 195 H Total Protein 5.2 L Albumin 2.4 L Globulin 2.8 Albumin/Globulin Ratio 0.9 L Alpha Fetoprotein SARS-CoV-2 (PCR) [facility] Medical History (Updated 11/06/22 @ 23:02 by Philip Rudolph MD) Alcoholic cirrhosis of liver Dental infection Hemochromatosis IDDM (insulin dependent diabetes mellitus) Surgical History History of appendectomy History of cholecystectomy Social History household members: children Smoking Status: Current every day smoker Discharge Plan Discharge Plan Other facility: [facility] Under care of provider: Dr. Medina Provider Discharge Comment: transfer for higher level of care Discharge orders & Medications Discharge Orders: Discharge (Order); Ordered 11/10/22 Ordered By: Abiodun Vargas Prescriptions: No Action Humira(CF) 40 mg/0.4 mL syringe kit SUBCUT Patient Comments: [NO ORIGINAL SIG] Follow up/Referrals: Rakan Reed MD [Primary Care Provider] - Discharge Health Status Multidrug resistant organism: No MDRO Diet/Activity/Treatments Diet: Regular Discharge Data Primary Care Provider: Rakan Reed
--- NOTE | 2022-11-10 18:10 | PC.NURSE ---
Report given to Agustina at [facility]. EMS picked pt up at 1715-gave report to Danielle, No further questions. pt wheeled out via [facility] @[phone].
== END 2022-11-10 17:25 | disposition short-term general hospital (02) | DRG 720 ==
LOC: ED 21:54 → AC 21:55 → ICU 22:21 → AC 11-09 20:00
PROVIDERS: Emergency Medicine; Internal Medicine; Internal Medicine Critical Care Medicine; Student in an Organized Health Care Education/Training Program; Admitting Provider Internal Medicine; Emergency Provider Emergency Medicine; PCP Family Medicine; Referring Provider Emergency Medicine; Visit Provider Internal Medicine
DX: A41.59 Other Gram-negative sepsis (principal); E11.10 Type 2 diabetes mellitus with ketoacidosis without coma; G93.41 Metabolic encephalopathy; F17.200 Nicotine dependence, unspecified, uncomplicated; D69.6 Thrombocytopenia, unspecified; B96.1 Klebsiella pneumoniae [K. pneumoniae] as the cause of diseases classified elsewhere; N28.89 Other specified disorders of kidney and ureter; K76.9 Liver disease, unspecified; R00.2 Palpitations; E83.39 Other disorders of phosphorus metabolism; B17.9 Acute viral hepatitis, unspecified; D62 Acute posthemorrhagic anemia; K92.0 Hematemesis; K92.1 Melena; K74.69 Other cirrhosis of liver; E87.1 Hypo-osmolality and hyponatremia; Z91.148 Patient's other noncompliance with medication regimen for other reason
CPT/HCPCS: 36415; 36600; 71045; 71260; 74177; 74181; 74183; 76705; 80048; 80053; 80305; 80329; 81001; 82009; 82105; 82140; 82728; 82805; 82962; 83036; 83540; 83550; 83605; 83690; 83735; 83986; 84100; 84300; 85007; 85025; 85610; 85651; 85730; 86850; 86900; 86901; 87040; 87077; 87154; 87186; 87635; 87797; 93005; 93010; 96374; 96375; 99233; 99284; 99291; C9803; A9579; C9113; G0480; J0692; J0696; J1815; J2060; J2354; J2405; J2765; Q9967

== ENCOUNTER → 2023-06-24 14:29 | Outpatient (CLI) | payer OTHER, MEDICAID, SELFPAY ==
[2022-11-06 23:22] VITALS: BMI 20.4
[2023-06-24 15:54] LABS: Add Manual Diff / Slide Review NO; Basophils Absolute Auto 0 /uL (0-100); Basophils Percent Auto 0.6 % (0-2); Eosinophils Absolute Auto 0 /uL (0-450); Eosinophils Percent Auto 0.5 % (2-4); Hematocrit 37.6 % (41-53); Hemoglobin 12.6 g/dL (13.5-17.5); Lymphocytes Absolute Auto 700 /uL (1100-4500); Lymphocytes Percent Auto 17.7 % (25-40); Mean Corpuscular HGB Conc 33.6 % (30-36); Mean Corpuscular Hemoglobin 34.6 PG (26-34); Monocytes Absolute Auto 300 /uL (0-900); Monocytes Percent Auto 7.9 % (3-14); Neutrophils Absolute Auto 2700 /uL (1500-7000); Neutrophils Percent Auto 73.3 % (50-75); Platelet Count 99 X10^3/uL (150-400); Red Blood Cell Count 3.65 X10^6/uL (4.5-5.9); Red Cell Distribution Width 15.2 % (11.6-14.8); White Blood Cell Count 3.7 X10^3/uL (4.5-11.0)
[2023-06-24 16:08] LABS: Ferritin 346 ng/mL (18-464)
== END ==
PROVIDERS: Referring Provider Family Medicine; Visit Provider Family Medicine
DX: E83.110 Hereditary hemochromatosis (principal)
CPT/HCPCS: 36415; 82728; 85025